=== PATIENT | female | born 1945 | race Two or more races ===

== ENCOUNTER 2018-04-25 08:34 | Inpatient (IN) | payer MEDICARE, OTHER ==
[~2018-04-25] VITALS: Ht 157.5 cm; Wt 63.6 kg
[~2018-04-25 08:34] MED LIST: EZET1TAB35 PO; METF500T16 PO; OLME20TA17 PO; TRAM-48 PO
--- NOTE | 2018-04-25 08:57 | PHYS DOC ---
Past Medical History Past Medical History: Diabetes-Type II, High Cholesterol, Hypertension, Other Additional Past Medical Histor: Neuropathy. Past Surgical History: No Surgical History Alcohol Use: None Drug Use: None Adult General Chief Complaint Chief Complaint: CHEST PAIN HPI HPI Patient is a 72 year old female with a history of diabetes type 2 uncontrolled , hypertension, high cholesterol, who presents today with with complaints of a 4 /10 chest pain described as pressure mid substernal that began yesterday. Patient states this pain has been going on and off since then. Patient states this morning she was given aspirin via EMS which relieved some of the pain. Patient denies anything exacerbating the pain. She is currently tearful, she states it's because she is in the hospital. Denies any fever coughing or congestion. She states she is not able to take all her diabetes medications because she cannot afford them. Review of Systems Review of Systems Constitutional: Denies fever or chills [] Eyes: Denies change in visual acuity, redness, or eye pain [] HENT: Denies nasal congestion or sore throat [] Respiratory: Denies cough or shortness of breath [] Cardiovascular: Reports chest pain GI: Denies abdominal pain, nausea, vomiting, bloody stools or diarrhea [] : Denies dysuria or hematuria [] Musculoskeletal: Denies back pain or joint pain [] Integument: Denies rash or skin lesions [] Neurologic: Denies headache, focal weakness or sensory changes [] Psych: Appears tearful All other systems were reviewed and found to be within normal limits, except as documented in this note. Current Medications Current Medications Current Medications Medications (Trade) Dose Ordered Sig/[facility] Start Time Stop Time Status Last Admin Dose Admin Morphine Sulfate (Morphine Sulfate) 2 mg 1X ONCE 04/25/18 09:00 04/25/18 09:01 DC 04/25/18 09:24 2 MG Allergies Allergies Allergies Coded Allergies Type Severity Reaction Last Updated Verified No Known Drug Allergies 04/25/18 No Physical Exam Physical Exam Constitutional: Well developed, well nourished, no acute distress, non-toxic appearance. [] HENT: Normocephalic, atraumatic, bilateral external ears normal, oropharynx moist, no oral exudates, nose normal. [] Eyes: PERRLA, EOMI, conjunctiva normal, no discharge. [] Neck: Normal range of motion, no tenderness, supple, no stridor. [] Cardiovascular:Heart rate regular rhythm, no murmur [] Lungs & Thorax: Bilateral breath sounds clear to auscultation [] Abdomen: Bowel sounds normal, soft, no tenderness, no masses, no pulsatile masses. [] Skin: Warm, dry, no erythema, no rash. [] Back: No tenderness, no CVA tenderness. [] Extremities: No tenderness, no cyanosis, no clubbing, ROM intact, no edema. [] Neurologic: Alert and oriented X 3, normal motor function, normal sensory function, no focal deficits noted. [] Psychologic: Tearful during exam Current Patient Data Vital Signs Vital Signs Date Time Temp Pulse Resp B/P (MAP) Pulse Ox O2 Delivery O2 Flow Rate FiO2 04/25/18 09:30 96 17 167/81 (109) 96 Room Air 04/25/18 08:35 99.8 99.8 Lab Values Laboratory Tests Test 04/25/18 08:58 04/25/18 09:20 04/25/18 09:41 Urine Collection Type Unknown Urine Color Yellow Urine Clarity Clear Urine pH 6.5 Urine Specific [place] 1.020 Urine Protein 100 mg/dL (NEG-TRACE) Urine Glucose (UA) >=1000 mg/dL (NEG) Urine Ketones (Stick) Negative mg/dL (NEG) Urine Blood Small (NEG) Urine Nitrite Negative (NEG) Urine Bilirubin Negative (NEG) Urine Urobilinogen Dipstick 0.2 mg/dL (0.2 mg/dL) Urine Leukocyte Esterase Negative (NEG) Urine RBC 0 /HPF (0-2) Urine WBC 1-4 /HPF (0-4) Urine Squamous Epithelial Cells Mod /LPF Urine Bacteria Moderate /HPF (0-FEW) Urine Opiates Screen Neg (NEG) Urine Methadone Screen Neg (NEG) Urine Barbiturates Neg (NEG) Urine Phencyclidine Screen Neg (NEG) Urine Amphetamine/Methamphetamine Neg (NEG) Urine Benzodiazepines Screen Neg (NEG) Urine Cocaine Screen Neg (NEG) Urine Cannabinoids Screen Neg (NEG) Urine Ethyl Alcohol Neg (NEG) White Blood Count 13.6 x10^3/uL (4.0-11.0) H Red Blood Count 4.69 x10^6/uL (3.50-5.40) Hemoglobin 13.4 g/dL (12.0-15.5) Hematocrit 39.4 % (36.0-47.0) Mean Corpuscular Volume 84 fL (79-100) Mean Corpuscular Hemoglobin 29 pg (25-35) Mean Corpuscular Hemoglobin Concent 34 g/dL (31-37) Red Cell Distribution Width 14.3 % (11.5-14.5) Platelet Count 272 x10^3/uL (140-400) Neutrophils (%) (Auto) 76 % (31-73) H Lymphocytes (%) (Auto) 18 % (24-48) L Monocytes (%) (Auto) 5 % (0-9) Eosinophils (%) (Auto) 1 % (0-3) Basophils (%) (Auto) 0 % (0-3) Neutrophils # (Auto) 10.3 x10^3uL (1.8-7.7) H Lymphocytes # (Auto) 2.4 x10^3/uL (1.0-4.8) Monocytes # (Auto) 0.7 x10^3/uL (0.0-1.1) Eosinophils # (Auto) 0.1 x10^3/uL (0.0-0.7) Basophils # (Auto) 0.1 x10^3/uL (0.0-0.2) Sodium Level 137 mmol/L (136-145) Potassium Level 4.1 mmol/L (3.5-5.1) Chloride Level 97 mmol/L (98-107) L Carbon Dioxide Level 27 mmol/L (21-32) Anion Gap 13 (6-14) Blood Urea Nitrogen 25 mg/dL (7-20) H Creatinine 2.1 mg/dL (0.6-1.0) H Estimated GFR (Cockcroft-Gault) 23.3 BUN/Creatinine Ratio 12 (6-20) Glucose Level 575 mg/dL (70-99) *H Hemoglobin A1c 13.6 % (4.8-5.6) H Calcium Level 9.0 mg/dL (8.5-10.1) Magnesium Level 2.1 mg/dL (1.8-2.4) Total Bilirubin 0.2 mg/dL (0.2-1.0) Aspartate Amino Transferase (AST) 16 U/L (15-37) Alanine Aminotransferase (ALT) 20 U/L (14-59) Alkaline Phosphatase 120 U/L (46-116) H Troponin I Quantitative 0.057 ng/mL (0.000-0.055) JU-Lam-U-Type Natriuretic Peptide 298 pg/mL (0-124) H Total Protein 7.1 g/dL (6.4-8.2) Albumin 3.3 g/dL (3.4-5.0) L Albumin/Globulin Ratio 0.9 (1.0-1.7) L Thyroid Stimulating Hormone (TSH) 0.581 uIU/mL (0.358-3.74) POC Troponin I 0.01 ng/ml (<0.08) Laboratory Tests 04/25/18 09:20 Laboratory Tests 04/25/18 09:20 EKG EKG 08:[address] Sharif sinus rhythm inverted T waves in V3 no STEMI Radiology/Procedures Radiology/Procedures []PROCEDURE: PORTABLE CHEST 1V PORTABLE CHEST 1V History: CHEST PAIN THIS AM Comparison: None. Findings: Single view of the chest is submitted. There is no infiltrate, pneumothorax, or effusion. The pericardial cardiac silhouette is within normal limits in size. There is mild apparent elevation of the right hemidiaphragm. There is atherosclerotic calcification near aortic arch. Impression: 1. There is no radiographic evidence of acute cardiopulmonary disease. Electronically signed by: Cassidy Perez MD (04/25/2018 9:30 AM) [id number] DICTATED and SIGNED BY: CASSIDY PEREZ MD DATE: 04/25/18929 Course & Med Decision Making Course & Med Decision Making Pertinent Labs and Imaging studies reviewed. (See chart for details) This is a 72 pain has improved with aspirin.-year-old female patient presenting to the ED today with complaints of chest pain on and off since yesterday. Patient is very tearful during exam denies any chance she is being abused, denies any suicidal or homicidal ideations. EKG noted for inverted T waves no previous EKG for comparison, troponin 0.057, blood glucose 575 with normal Anion gap. Chest x-ray with no acute findings. Creatinine 2.1 BUN 25, patient states she has history of renal insufficiency. Given Insulin 8 units in the Ed. Blood pressure 154/76, HR 89. Temp 99.8 Resp 14. Heart score 6 09:22 Consulted with Samina SALAMANCA for cardiology who will follow-up with patient. 09:[address] Krueger who will also follow-up with patient. Staff Physician Addendum: I was working in the ER during the course of this patient's visit. I was available for consultation as needed, but I was not directly involved in the care of this patient. Dragon Disclaimer Dragon Disclaimer This electronic medical record was generated, in whole or in part, using a voice recognition dictation system. Departure Departure Impression: Primary Impression: T wave inversion in EKG Additional Impressions: Chest pain Chronic renal failure NSTEMI (non-ST elevated myocardial infarction) Hyperglycemia Disposition: ADMITTED INPATIENT Condition: STABLE Referrals: MELA EDOUARD (PCP) Problem Qualifiers Additional Impressions: Chest pain Chest pain type: unspecified Qualified Codes: R07.9 - Chest pain, unspecified Chronic renal failure Chronic kidney disease stage: unspecified stage Qualified Codes: N18.9 - Chronic kidney disease, unspecified SARKIS COOK APRN Apr 25, 2018 08:57 RIKY PINO MD Apr 26, 2018 07:03
[2018-04-25] MEDS ORDERED: MORPHINE SULFATE 2 MG/ML VIAL. IV ONE (09:00)
--- NOTE | 2018-04-25 09:01 | EKG ---
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
[2018-04-25 09:15] LABS: BILIRUBIN,URINE NEGATIVE (NEG); CLARITY,URINE CLEAR; COLOR,URINE YELLOW; NITRITE,URINE NEGATIVE (NEG); PH,URINE 6.5; PROTEIN,URINE 100 mg/dL (NEG-TRACE); UROBILINOGEN,URINE 0.2 mg/dL (0.2 mg/dL)
[2018-04-25 09:23] LABS: BARBITURATES NEG (NEG); BENZODIAZEPINES NEG (NEG); CANNABINOIDS NEG (NEG); COCAINE NEG (NEG); METHADONE NEG (NEG); OPIATES NEG (NEG); PHENCYCLIDINE NEG (NEG)
[2018-04-25 09:26] LABS: SQUAMOUS EPITHELIAL CELL,UR MOD /LPF
[2018-04-25 09:27] LABS: BACTERIA,URINE MODERATE /HPF (0-FEW); RBC,URINE 0 /HPF (0-2)
[2018-04-25 09:29] LABS: AMPHETAMINE/METHAMPHETAMINE NEG (NEG)
--- NOTE | 2018-04-25 09:34 | RAD ---
PORTABLE CHEST 1V History: CHEST PAIN THIS AM Comparison: None. Findings: Single view of the chest is submitted. There is no infiltrate, pneumothorax, or effusion. The pericardial cardiac silhouette is within normal limits in size. There is mild apparent elevation of the right hemidiaphragm. There is atherosclerotic calcification near aortic arch. Impression: 1. There is no radiographic evidence of acute cardiopulmonary disease. Electronically signed by: Pj Gary MD (04/25/2018 9:30 AM) [id number]
[2018-04-25 09:41] LABS: BASO # 0.1 x10^3/uL (0.0-0.2); BASO % 0 % (0-3); EOS # 0.1 x10^3/uL (0.0-0.7); EOS % 1 % (0-3); HEMATOCRIT 39.4 % (36.0-47.0); HEMOGLOBIN 13.4 g/dL (12.0-15.5); LYMPH # 2.4 x10^3/uL (1.0-4.8); LYMPH % 18 % (24-48); MEAN CORPUSCULAR HEMOGLOBIN 29 pg (25-35); MEAN CORPUSCULAR HGB CONC 34 g/dL (31-37); MEAN CORPUSCULAR VOLUME 84 fL (79-100); MONO # 0.7 x10^3/uL (0.0-1.1); MONO % 5 % (0-9); NEUT # 10.3 x10^3uL (1.8-7.7); NEUT % 76 % (31-73); PLATELET COUNT 272 x10^3/uL (140-400); RED BLOOD COUNT 4.69 x10^6/uL (3.50-5.40); RED CELL DISTRIBUTION WIDTH 14.3 % (11.5-14.5); WHITE BLOOD COUNT 13.6 x10^3/uL (4.0-11.0)
[2018-04-25 09:48] LABS: ALBUMIN 3.3 g/dL (3.4-5.0); ALBUMIN/GLOBULIN RATIO 0.9 (1.0-1.7); CREATININE 2.1 mg/dL (0.6-1.0); GFR 23.3; MAGNESIUM 2.1 mg/dL (1.8-2.4); POTASSIUM 4.1 mmol/L (3.5-5.1); TOTAL BILIRUBIN 0.2 mg/dL (0.2-1.0); TOTAL PROTEIN 7.1 g/dL (6.4-8.2)
--- NOTE | 2018-04-25 10:10 | PDOC1 ---
History and Physical Date of Admission Date of Admission DATE: 04/25/18 TIME: 10:10 Identification/Chief Complaint Chief Complaint SEEN IN ER 72 YR OLD female with a history of diabetes type 2 uncontrolled, hypertension, high cholesterol, who presented today with with complaints of a 4/10 chest pain described as pressure ,substernal that began yesterday. saw Dr. Gaming cardiology 5 yrs ago and had a stress test , was told that this was ok. Past Medical History Past Medical History Past Medical History: Diabetes-Type II, High Cholesterol, Hypertension, Other Additional Past Medical Histor: Neuropathy. Past Surgical History: No Surgical History Alcohol Use: None Drug Use: None never smoker family hx diabetes Cardiovascular: Hyperlipidemia Endocrine: Diabetes Past Surgical History Past Surgical History: No pertinent history Family History Family History: Diabetes Social History Smoke: No ALCOHOL: rare Drugs: None Current Medications Current Medications Current Medications Morphine Sulfate (Morphine Sulfate) 2 mg 1X ONCE IV Last administered on at 09:24; Start 04/25/18 at 09:00; Stop 04/25/18 at 09:01; Status DC Active Scripts Active Reported Ultram (Tramadol Hcl) 50 Mg Tablet 50 Mg PO Q6H PRN Metformin Hcl 500 Mg Tablet 500 Mg PO BIDWMEALS Vytorin 10-40 Mg Tablet (Ezetimibe/Simvastatin) 1 Each Tablet 1 Each PO HS Benicar (Olmesartan Medoxomil) 20 Mg Tablet 20 Mg PO Allergies Allergies: Coded Allergies: No Known Drug Allergies (Unverified , 04/25/18) ROS Review of System Review of Systems Review of Systems Constitutional: Denies fever or chills [] Eyes: Denies change in visual acuity, redness, or eye pain [] HENT: Denies nasal congestion or sore throat [] Respiratory: Denies cough or shortness of breath [] Cardiovascular: Reports chest pain, no radiation to arm or jaw GI: Denies abdominal pain, nausea, vomiting, bloody stools or diarrhea [] : Denies dysuria or hematuria [] Musculoskeletal: Denies back pain or joint pain [] Integument: Denies rash or skin lesions [] Neurologic: Denies headache, focal weakness or sensory changes [] Psych: Appears tearful All other systems were reviewed and found to be within normal limits, except as documented in this note. PSYCHOLOGICAL ROS: YES: Anxiety Musculoskeletal: Yes Gait Disturbance, Yes Joint Stiffness Physical Exam Physical Exam Physical Exam Physical Exam Constitutional: Well developed, well nourished, mild acute distress, non-toxic appearance. [] HENT: Normocephalic, atraumatic, bilateral external ears normal, oropharynx moist, no oral exudates, nose normal. [] Eyes: PERRLA, EOMI, conjunctiva normal, no discharge. [] Neck: Normal range of motion, no tenderness, supple, no stridor. [] Cardiovascular:Heart rate regular rhythm, no murmur [] Lungs & Thorax: Bilateral breath sounds clear to auscultation [] Abdomen: Bowel sounds normal, soft, no tenderness, no masses, no pulsatile masses. [] Skin: Warm, dry, no erythema, no rash. [] Back: No tenderness, no CVA tenderness. [] Extremities: No tenderness, no cyanosis, no clubbing, ROM intact, no edema. [] Neurologic: Alert and oriented X 3, normal motor function, normal sensory function, no focal deficits noted. [] General: Oriented X3, Cooperative, mild distress Breasts: Not examined Abdomen: Normal bowel sounds, Soft Rectal Exam: not examined PELVIC: Examination not indicated Neuro: Cranial nerves 3-12 NL Psych/Mental Status: Mental status NL, Mood NL Vitals Vitals Vital Signs Date Time Temp Pulse Resp B/P (MAP) Pulse Ox O2 Delivery O2 Flow Rate FiO2 04/25/18 09:24 14 97 Room Air 04/25/18 08:35 99.8 89 154/76 (102) 99.8 Labs Labs Laboratory Tests Test 04/25/18 08:58 04/25/18 09:20 04/25/18 09:41 Urine Collection Type Unknown Urine Color Yellow Urine Clarity Clear Urine pH 6.5 Urine Specific [place] 1.020 Urine Protein 100 mg/dL (NEG-TRACE) Urine Glucose (UA) >=1000 mg/dL (NEG) Urine Ketones (Stick) Negative mg/dL (NEG) Urine Blood Small (NEG) Urine Nitrite Negative (NEG) Urine Bilirubin Negative (NEG) Urine Urobilinogen Dipstick 0.2 mg/dL (0.2 mg/dL) Urine Leukocyte Esterase Negative (NEG) Urine RBC 0 /HPF (0-2) Urine WBC 1-4 /HPF (0-4) Urine Squamous Epithelial Cells Mod /LPF Urine Bacteria Moderate /HPF (0-FEW) Urine Opiates Screen Neg (NEG) Urine Methadone Screen Neg (NEG) Urine Barbiturates Neg (NEG) Urine Phencyclidine Screen Neg (NEG) Urine Amphetamine/Methamphetamine Neg (NEG) Urine Benzodiazepines Screen Neg (NEG) Urine Cocaine Screen Neg (NEG) Urine Cannabinoids Screen Neg (NEG) Urine Ethyl Alcohol Neg (NEG) White Blood Count 13.6 x10^3/uL (4.0-11.0) Red Blood Count 4.69 x10^6/uL (3.50-5.40) Hemoglobin 13.4 g/dL (12.0-15.5) Hematocrit 39.4 % (36.0-47.0) Mean Corpuscular Volume 84 fL (79-100) Mean Corpuscular Hemoglobin 29 pg (25-35) Mean Corpuscular Hemoglobin Concent 34 g/dL (31-37) Red Cell Distribution Width 14.3 % (11.5-14.5) Platelet Count 272 x10^3/uL (140-400) Neutrophils (%) (Auto) 76 % (31-73) Lymphocytes (%) (Auto) 18 % (24-48) Monocytes (%) (Auto) 5 % (0-9) Eosinophils (%) (Auto) 1 % (0-3) Basophils (%) (Auto) 0 % (0-3) Neutrophils # (Auto) 10.3 x10^3uL (1.8-7.7) Lymphocytes # (Auto) 2.4 x10^3/uL (1.0-4.8) Monocytes # (Auto) 0.7 x10^3/uL (0.0-1.1) Eosinophils # (Auto) 0.1 x10^3/uL (0.0-0.7) Basophils # (Auto) 0.1 x10^3/uL (0.0-0.2) Sodium Level 137 mmol/L (136-145) Potassium Level 4.1 mmol/L (3.5-5.1) Chloride Level 97 mmol/L (98-107) Carbon Dioxide Level 27 mmol/L (21-32) Anion Gap 13 (6-14) Blood Urea Nitrogen 25 mg/dL (7-20) Creatinine 2.1 mg/dL (0.6-1.0) Estimated GFR (Cockcroft-Gault) 23.3 BUN/Creatinine Ratio 12 (6-20) Glucose Level 575 mg/dL (70-99) Calcium Level 9.0 mg/dL (8.5-10.1) Magnesium Level 2.1 mg/dL (1.8-2.4) Total Bilirubin 0.2 mg/dL (0.2-1.0) Aspartate Amino Transf (AST/SGOT) 16 U/L (15-37) Alanine Aminotransferase (ALT/SGPT) 20 U/L (14-59) Alkaline Phosphatase 120 U/L (46-116) Troponin I Quantitative 0.057 ng/mL (0.000-0.055) UH-Ztd-C-Type Natriuretic Peptide 298 pg/mL (0-124) Total Protein 7.1 g/dL (6.4-8.2) Albumin 3.3 g/dL (3.4-5.0) Albumin/Globulin Ratio 0.9 (1.0-1.7) Thyroid Stimulating Hormone (TSH) 0.581 uIU/mL (0.358-3.74) Bedside Troponin I 0.01 ng/ml (<0.08) Laboratory Tests Test 04/25/18 08:58 04/25/18 09:20 04/25/18 09:41 Urine Collection Type Unknown Urine Color Yellow Urine Clarity Clear Urine pH 6.5 Urine Specific [place] 1.020 Urine Protein 100 mg/dL (NEG-TRACE) Urine Glucose (UA) >=1000 mg/dL (NEG) Urine Ketones (Stick) Negative mg/dL (NEG) Urine Blood Small (NEG) Urine Nitrite Negative (NEG) Urine Bilirubin Negative (NEG) Urine Urobilinogen Dipstick 0.2 mg/dL (0.2 mg/dL) Urine Leukocyte Esterase Negative (NEG) Urine RBC 0 /HPF (0-2) Urine WBC 1-4 /HPF (0-4) Urine Squamous Epithelial Cells Mod /LPF Urine Bacteria Moderate /HPF (0-FEW) Urine Opiates Screen Neg (NEG) Urine Methadone Screen Neg (NEG) Urine Barbiturates Neg (NEG) Urine Phencyclidine Screen Neg (NEG) Urine Amphetamine/Methamphetamine Neg (NEG) Urine Benzodiazepines Screen Neg (NEG) Urine Cocaine Screen Neg (NEG) Urine Cannabinoids Screen Neg (NEG) Urine Ethyl Alcohol Neg (NEG) White Blood Count 13.6 x10^3/uL (4.0-11.0) Red Blood Count 4.69 x10^6/uL (3.50-5.40) Hemoglobin 13.4 g/dL (12.0-15.5) Hematocrit 39.4 % (36.0-47.0) Mean Corpuscular Volume 84 fL (79-100) Mean Corpuscular Hemoglobin 29 pg (25-35) Mean Corpuscular Hemoglobin Concent 34 g/dL (31-37) Red Cell Distribution Width 14.3 % (11.5-14.5) Platelet Count 272 x10^3/uL (140-400) Neutrophils (%) (Auto) 76 % (31-73) Lymphocytes (%) (Auto) 18 % (24-48) Monocytes (%) (Auto) 5 % (0-9) Eosinophils (%) (Auto) 1 % (0-3) Basophils (%) (Auto) 0 % (0-3) Neutrophils # (Auto) 10.3 x10^3uL (1.8-7.7) Lymphocytes # (Auto) 2.4 x10^3/uL (1.0-4.8) Monocytes # (Auto) 0.7 x10^3/uL (0.0-1.1) Eosinophils # (Auto) 0.1 x10^3/uL (0.0-0.7) Basophils # (Auto) 0.1 x10^3/uL (0.0-0.2) Sodium Level 137 mmol/L (136-145) Potassium Level 4.1 mmol/L (3.5-5.1) Chloride Level 97 mmol/L (98-107) Carbon Dioxide Level 27 mmol/L (21-32) Anion Gap 13 (6-14) Blood Urea Nitrogen 25 mg/dL (7-20) Creatinine 2.1 mg/dL (0.6-1.0) Estimated GFR (Cockcroft-Gault) 23.3 BUN/Creatinine Ratio 12 (6-20) Glucose Level 575 mg/dL (70-99) Calcium Level 9.0 mg/dL (8.5-10.1) Magnesium Level 2.1 mg/dL (1.8-2.4) Total Bilirubin 0.2 mg/dL (0.2-1.0) Aspartate Amino Transf (AST/SGOT) 16 U/L (15-37) Alanine Aminotransferase (ALT/SGPT) 20 U/L (14-59) Alkaline Phosphatase 120 U/L (46-116) Troponin I Quantitative 0.057 ng/mL (0.000-0.055) ZE-Fvy-D-Type Natriuretic Peptide 298 pg/mL (0-124) Total Protein 7.1 g/dL (6.4-8.2) Albumin 3.3 g/dL (3.4-5.0) Albumin/Globulin Ratio 0.9 (1.0-1.7) Thyroid Stimulating Hormone (TSH) 0.581 uIU/mL (0.358-3.74) Bedside Troponin I 0.01 ng/ml (<0.08) VTE Prophylaxis Ordered VTE Prophylaxis Devices: Yes VTE Pharmacological Prophylaxi: Yes Assessment/Plan Assessment/Plan ASSESSMENT/PLAN ASSESSMENT/PLAN 1. Chest pain: unstable angina 2. Uncontrolled DM2:pt not taking insulin due to high cost 3. SEJAL 4. Hyperlipidemia 5. HTN: labile plan 1. trend troponin TTE 2. Lipids, A1C 3. consult nephrology 4. restart insulin 5. ASA, x1 lovenox 6. [facility] , YOLANDA ERWIN MD Apr 25, 2018 10:10
[2018-04-25] MEDS ORDERED: NITROGLYCERIN SUBLINGUAL 0.4 MG BOTTLE OF 25. SL PRN (10:30)
[2018-04-25] MEDS ORDERED: MORPHINE SULFATE 4 MG/ML VIAL. IV PRN (10:30)
[2018-04-25] MEDS ORDERED: INSULIN REGULAR 100 UNIT/ML 3ML VIAL. IV ONE (10:30)
[2018-04-25] MEDS ORDERED: ACETAMINOPHEN 325 MG TABLET. PO PRN (10:30)
[2018-04-25] MEDS ORDERED: ONDANSETRON PF 4 MG/2 ML VIAL. IV PRN (10:30)
[2018-04-25] MEDS ORDERED: DEXTROSE 50% 25 GM / 50ML DISP.SYRIN. IV PRN ×2 (10:30→12:15)
[2018-04-25 11:50] VITALS: BP 139/77
[2018-04-25] MEDS ORDERED: CARV6.252 PO (11:51)
[2018-04-25] MEDS ORDERED: GLIM1TAB2 PO (11:51)
[2018-04-25] MEDS ORDERED: PARI1CAP PO (11:51)
[2018-04-25] MEDS ORDERED: TRAM50TA PO (11:51)
[2018-04-25] MEDS ORDERED: CRESTOR20 MG PO (11:51)
[2018-04-25] MEDS ORDERED: SITA50TA PO (11:51)
[2018-04-25] MEDS ORDERED: CETI10TA16 PO (11:51)
[2018-04-25] MEDS ORDERED: INSU100I13 SQ (11:51)
[2018-04-25] MEDS ORDERED: AMLO5TAB7 PO (11:51)
[2018-04-25] MEDS ORDERED: INSULIN LISPRO 300 UNITS/3 ML INSULN.PEN. SQ ONE ×2 (12:15→22:30)
[2018-04-25] MEDS ORDERED: IV NORMAL SALINE 1000ML BAG 1,000 ML IV ONE (12:45)
[2018-04-25] MEDS ORDERED: LABETALOL 20 MG/4 ML DISP.SYRIN. IVP PRN (12:45)
--- NOTE | 2018-04-25 12:53 | PDOC2 ---
DOMINGA MISHRA LICENSED SOCIAL WORKER 04/25/18 1253: CARDIAC CONSULT DATE OF CONSULT Date of Consult DATE: 04/25/18 TIME: 11:57 REASON FOR CONSULT Reason for Consult: Chest pain, elevated troponin, inverted t waves REFERRING PHYSICIAN Referring Physician: Anil SOURCE Source: Chart review, Patient HISTORY OF PRESENT ILLNESS HISTORY OF PRESENT ILLNESS This is a 72 yo female admitted for complains of chest pain. Reports that started having midchest pressure yesterday morning that radiated just below between her shoulder blades. Reports of SOA associated with it but no jaw or arm discomfort. No nausea, indigestion or heartburn and this pain are not reproducible with palpation. She tried vicks and vough drops but this did not help and lasted all morning yesterday. This recurred again this morning and is much worse than yesterday. Again with SOA but no palpitations or GI symptoms. 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 She did see Dr. Gaming cardiology 5 yrs ago and had a stress test for routine testing for her long-term preparation and was told that this was ok. Presently she denies any pain or SOA. To add she has limited distance with ambulation due to CHRISTINE and bad knee arthritis but indicated no significant changes as far as distance in the last several months with her activity tolerance. No recent falls or injury and no routine ibuprofen/aleve. No past hx of CAD/VTE. PAST MEDICAL HISTORY Cardiovascular: HTN, Hyperlipidemia Pulmonary: No pertinent hx CENTRAL NERVOUS SYSTEM: Other (No pertinent history) GI: No pertinent hx Musculoskeletal: Osteoarthritis ENT: Allergic Rhinitis Renal/: Chronic renal insuff (CKD3) Endocrine: Diabetes (2), Hyperparathyroidism (secondary) PAST SURGICAL HISTORY Past Surgical History: Cataract Removal FAMILY HISTORY Family History: Diabetes (father) SOCIAL HISTORY Smoke: No ALCOHOL: none Drugs: None Lives: with Family (son) CURRENT MEDICATIONS CURRENT MEDICATIONS Current Medications Medications (Trade) Dose Ordered Sig/Gerald Route PRN Reason Start Time Stop Time Status Last Admin Dose Admin Morphine Sulfate (Morphine Sulfate) 2 mg 1X ONCE IV 04/25/18 09:00 04/25/18 09:01 DC 04/25/18 09:24 Insulin Human Regular (HumuLIN R VIAL) 8 unit 1X ONCE IV 04/25/18 10:30 04/25/18 10:31 DC 04/25/18 10:51 Nitroglycerin (Nitrostat) 0.4 mg PRN Q5MIN PRN SL CHEST PAIN 04/25/18 10:30 04/26/18 10:29 04/25/18 10:55 ALLERGIES ALLERGIES: Coded Allergies: No Known Drug Allergies (Unverified , 04/25/18) ROS Review of System 14 pioi PHYSICAL EXAM General: Alert, Oriented X3, Cooperative, No acute distress HEENT: Atraumatic, Mucous membr. moist/pink Lungs: Other (basilar crackles) Heart: Regular rate (SR), Normal S1, Normal S2, Other (2/6 systolic murmur to LLS border) Abdomen: Soft, No tenderness Extremities: No cyanosis, Other (trace LE edema) Skin: No breakdown, No significant lesion Neuro: Normal speech, Sensation intact Psych/Mental Status: Mental status NL, Mood NL MUSCULOSKELETAL: Osteoarthritic changes both hands VITALS VITALS Vital Signs Date Time Temp Pulse Resp B/P (MAP) Pulse Ox O2 Delivery O2 Flow Rate FiO2 04/25/18 10:55 101 151/83 04/25/18 09:24 14 97 Room Air 04/25/18 08:35 99.8 99.8 LABS Lab: Laboratory Tests Test 04/25/18 08:58 04/25/18 09:20 04/25/18 09:41 Urine Collection Type Unknown Urine Color Yellow Urine Clarity Clear Urine pH 6.5 Urine Specific [place] 1.020 Urine Protein 100 mg/dL (NEG-TRACE) Urine Glucose (UA) >=1000 mg/dL (NEG) Urine Ketones (Stick) Negative mg/dL (NEG) Urine Blood Small (NEG) Urine Nitrite Negative (NEG) Urine Bilirubin Negative (NEG) Urine Urobilinogen Dipstick 0.2 mg/dL (0.2 mg/dL) Urine Leukocyte Esterase Negative (NEG) Urine RBC 0 /HPF (0-2) Urine WBC 1-4 /HPF (0-4) Urine Squamous Epithelial Cells Mod /LPF Urine Bacteria Moderate /HPF (0-FEW) Urine Opiates Screen Neg (NEG) Urine Methadone Screen Neg (NEG) Urine Barbiturates Neg (NEG) Urine Phencyclidine Screen Neg (NEG) Urine Amphetamine/Methamphetamine Neg (NEG) Urine Benzodiazepines Screen Neg (NEG) Urine Cocaine Screen Neg (NEG) Urine Cannabinoids Screen Neg (NEG) Urine Ethyl Alcohol Neg (NEG) White Blood Count 13.6 x10^3/uL (4.0-11.0) Red Blood Count 4.69 x10^6/uL (3.50-5.40) Hemoglobin 13.4 g/dL (12.0-15.5) Hematocrit 39.4 % (36.0-47.0) Mean Corpuscular Volume 84 fL (79-100) Mean Corpuscular Hemoglobin 29 pg (25-35) Mean Corpuscular Hemoglobin Concent 34 g/dL (31-37) Red Cell Distribution Width 14.3 % (11.5-14.5) Platelet Count 272 x10^3/uL (140-400) Neutrophils (%) (Auto) 76 % (31-73) Lymphocytes (%) (Auto) 18 % (24-48) Monocytes (%) (Auto) 5 % (0-9) Eosinophils (%) (Auto) 1 % (0-3) Basophils (%) (Auto) 0 % (0-3) Neutrophils # (Auto) 10.3 x10^3uL (1.8-7.7) Lymphocytes # (Auto) 2.4 x10^3/uL (1.0-4.8) Monocytes # (Auto) 0.7 x10^3/uL (0.0-1.1) Eosinophils # (Auto) 0.1 x10^3/uL (0.0-0.7) Basophils # (Auto) 0.1 x10^3/uL (0.0-0.2) Sodium Level 137 mmol/L (136-145) Potassium Level 4.1 mmol/L (3.5-5.1) Chloride Level 97 mmol/L (98-107) Carbon Dioxide Level 27 mmol/L (21-32) Anion Gap 13 (6-14) Blood Urea Nitrogen 25 mg/dL (7-20) Creatinine 2.1 mg/dL (0.6-1.0) Estimated GFR (Cockcroft-Gault) 23.3 BUN/Creatinine Ratio 12 (6-20) Glucose Level 575 mg/dL (70-99) Calcium Level 9.0 mg/dL (8.5-10.1) Magnesium Level 2.1 mg/dL (1.8-2.4) Total Bilirubin 0.2 mg/dL (0.2-1.0) Aspartate Amino Transf (AST/SGOT) 16 U/L (15-37) Alanine Aminotransferase (ALT/SGPT) 20 U/L (14-59) Alkaline Phosphatase 120 U/L (46-116) Troponin I Quantitative 0.057 ng/mL (0.000-0.055) PN-Dku-L-Type Natriuretic Peptide 298 pg/mL (0-124) Total Protein 7.1 g/dL (6.4-8.2) Albumin 3.3 g/dL (3.4-5.0) Albumin/Globulin Ratio 0.9 (1.0-1.7) Thyroid Stimulating Hormone (TSH) 0.581 uIU/mL (0.358-3.74) Bedside Troponin I 0.01 ng/ml (<0.08) ASSESSMENT/PLAN ASSESSMENT/PLAN 1. Chest pain: UA features 2. Uncontrolled DM2: 500s upon admission. Per PCP 3. SEJAL on CKD: suspected baseline at stage 3-4 2014 Cr noted at 1.6 and currently 2.1. she is on Zemplar 4. HLP 5. HTN: labile episodes Recommendations 1. trend troponin and will repeat EKG. TTE 2. Lipids, A1C 3. Renal optimization, consult nephrology 4. May need to switch to tradjenta, defer to PCP. 5. ASA, x1 lovenox per renal dosing, Statin and home norvasc/coreg to continue. No ACEi/ARB. 6. High pretest probability for CAD, [facility] recommended, control and renal optimization. Start IVF JEREMY GREENE MD 04/25/18 2320: CARDIAC CONSULT ASSESSMENT/PLAN ASSESSMENT/PLAN Pt. seen and examined. Agree with above SHIPPING SUPPORT CLERK note. 72 yo F with fairly typical symptoms and NSTEMI with trop of 2.4 [address] cr to stabilize and continue hydration and treatment of hyperglycemia. High risk for KAYDEN as well. Given normal LV function, could manage conservatively or plan for cath after medical optimization. DOMINGA MISHRA APRN Apr 25, 2018 12:53 JEREMY GREENE MD Apr 25, 2018 23:20
--- NOTE | 2018-04-25 13:15 | PDOC2 ---
CONSULT Date of Consult Date of Consult DATE: 04/25/18 TIME: 13:04 Reason for Consult Reason for Consult: Creat 2.1 Identification/Chief Complaint Chief Complaint Chest pain and Shortness of breath, None currently Source Source: Chart review, Patient History of Present Illness Reason for Visit: Pt is 72 yo female admitted for complains of chest pain. C/O having midchest pressure yesterday morning that radiated just below between her shoulder blades. Reports that it was associated with shortness of breath but no jaw or arm discomfort. Denies nausea, vomiting or heartburn She tried vicks and cough drops but this did not help and lasted all morning yesterday. This recurred again this morning and is much worse than yesterday with shortness of breath . Presently she denies any complaints . Denies any urinary symptoms. Denies use of NSAID's or any OTC Products. She states she used to see Dr. Greene now Dr. Pompa- seen her only x1 recently. She is not aware of any Kidney issues . Past Medical History Cardiovascular: HTN, Hyperlipidemia Pulmonary: No pertinent hx CENTRAL NERVOUS SYSTEM: Other (No pertinent history) GI: No pertinent hx Musculoskeletal: Osteoarthritis ENT: Allergic Rhinitis Renal/: Chronic renal insuff (CKD3) Endocrine: Diabetes (2), Hyperparathyroidism (secondary) Past Surgical History Past Surgical History: Cataract Removal Family History Family History: Diabetes (father) Social History No ALCOHOL: none Drugs: None Lives: with Family (son) Current Problem List Problem List Problems Medical Problems: (1) Chronic renal failure Status: Acute (2) Hyperglycemia Status: Acute (3) NSTEMI (non-ST elevated myocardial infarction) Status: Acute Current Medications Current Medications Current Medications Morphine Sulfate (Morphine Sulfate) 2 mg 1X ONCE IV Last administered on at 09:24; Start 04/25/18 at 09:00; Stop 04/25/18 at 09:01; Status DC Insulin Human Regular (HumuLIN R VIAL) 8 unit 1X ONCE IV Last administered on 04/25/18at 10:51; Start 04/25/18 at 10:30; Stop 04/25/18 at 10:31; Status DC Ondansetron HCl (Zofran) 4 mg PRN Q8HRS PRN IV NAUSEA/VOMITING; Start 04/25/18 at 10:30; Stop 04/26/18 at 10:29 Morphine Sulfate (Morphine Sulfate) 4 mg PRN Q2HR PRN IV PAIN; Start 04/25/18 at 10:30; Stop 04/26/18 at 10:29 Acetaminophen (Tylenol) 650 mg PRN Q4HRS PRN PO FEVER; Start 04/25/18 at 10:30 ; Stop 04/26/18 at 10:29 Nitroglycerin (Nitrostat) 0.4 mg PRN Q5MIN PRN SL CHEST PAIN Last administered on 04/25/18at 10:55; Start 04/25/18 at 10:30; Stop 04/26/18 at 10:29 Dextrose (Dextrose 50%-Water Syringe) 12.5 gm PRN Q15MIN PRN IV SEE COMMENTS; Start 04/25/18 at 10:30 Insulin Human Lispro (HumaLOG) 12 units 1X ONCE SQ Last administered on at 12:46; Start 04/25/18 at 12:15; Stop 04/25/18 at 12:17; Status DC Insulin Human Lispro (HumaLOG) 0-9 UNITS TIDWMEALS SQ ; Start 04/25/18 at 17:00 Dextrose (Dextrose 50%-Water Syringe) 12.5 gm PRN Q15MIN PRN IV SEE COMMENTS; Start 04/25/18 at 12:15; Status UNV Sodium Chloride 1,000 ml @ 75 mls/hr 1X ONCE IV ; Start 04/25/18 at 12:45; Stop 04/26/18 at 02:04 Labetalol HCl (Normodyne Iv Push) 20 mg PRN Q2HR PRN IVP HYPERTENSION, SEE COMMENTS; Start 04/25/18 at 12:45 Aspirin (Ecotrin) 81 mg DAILYWBKFT PO ; Start 04/26/18 at 08:00 Amlodipine Besylate (Norvasc) 5 mg DAILY PO ; Start 04/25/18 at 13:00 Carvedilol (Coreg) 6.25 mg BIDWMEALS PO ; Start 04/25/18 at 17:00 Enoxaparin Sodium (Lovenox 60mg Syringe) 60 mg 1X ONCE SQ ; Start 04/25/18 at 13:00; Stop 04/25/18 at 13:01 Active Scripts Active Reported Zemplar (Paricalcitol) 1 Mcg Capsule 1 Mcg PO DAILY Lantus Solostar (Insulin Glargine,Hum.rec.anlog) 100 Unit/1 Ml Insuln.pen 20 Unit SQ QHS Carvedilol 6.25 Mg Tablet 6.25 Mg PO BIDWMEALS Cetirizine Hcl 10 Mg Tablet 10 Mg PO DAILY Amlodipine Besylate 5 Mg Tablet 5 Mg PO DAILY Tramadol Hcl 50 Mg Tablet 50 Mg PO Q4HRS PRN Glimepiride 1 Mg Tablet 1 Mg PO DAILY Januvia (Sitagliptin Phosphate) 50 Mg Tablet 50 Mg PO DAILY Crestor (Rosuvastatin Calcium) 20 Mg Tablet 20 Mg PO HS Allergies Allergies: Coded Allergies: No Known Drug Allergies (Unverified , 04/25/18) ROS Review of System As per hpi Physical Exam Physical Exam General: No acute distress Neck Supple HEENT: , Mucous membr. moist/pink Lungs: CTA bilat, non labored CV- RRR Abdomen: Soft, No tenderness Extremities: No LE edema Skin: No rash Neuro: Grossly normaL gu- No Robison, No SP/CVA tenderness Vital Signs Vital Signs Date Time Temp Pulse Resp B/P (MAP) Pulse Ox O2 Delivery O2 Flow Rate FiO2 04/25/18 11:50 98 20 139/77 (97) 93 Room Air 04/25/18 08:35 99.8 99.8 Assessment & Plan SEJAL - Dehydration sec to Hyperglycemia Creat in 2014 as per [facility] records 1.5 - could be progression of CKD E-Lytes and acid base stable,ua unremarkable Monitor , strict I/O CKD stage 3/4- Creat in 2014 1.5 Pt not aware , has never sen renal as OP No interval labs available Med list shows she is on Zemplar Chest pain- Cardiology Following Uncontrolled DM2: 500s upon admission As Per PCP HTN: BP fair On Antihypertensives Discussed with Pt CT in 2015- Normal Kidneys Labs Labs Laboratory Tests Test 04/25/18 08:58 04/25/18 09:20 04/25/18 09:41 04/25/18 11:17 Urine Collection Type Unknown Urine Color Yellow Urine Clarity Clear Urine pH 6.5 Urine Specific [place] 1.020 Urine Protein 100 mg/dL (NEG-TRACE) Urine Glucose (UA) >=1000 mg/dL (NEG) Urine Ketones (Stick) Negative mg/dL (NEG) Urine Blood Small (NEG) Urine Nitrite Negative (NEG) Urine Bilirubin Negative (NEG) Urine Urobilinogen Dipstick 0.2 mg/dL (0.2 mg/dL) Urine Leukocyte Esterase Negative (NEG) Urine RBC 0 /HPF (0-2) Urine WBC 1-4 /HPF (0-4) Urine Squamous Epithelial Cells Mod /LPF Urine Bacteria Moderate /HPF (0-FEW) Urine Opiates Screen Neg (NEG) Urine Methadone Screen Neg (NEG) Urine Barbiturates Neg (NEG) Urine Phencyclidine Screen Neg (NEG) Urine Amphetamine/Methamphetamine Neg (NEG) Urine Benzodiazepines Screen Neg (NEG) Urine Cocaine Screen Neg (NEG) Urine Cannabinoids Screen Neg (NEG) Urine Ethyl Alcohol Neg (NEG) White Blood Count 13.6 x10^3/uL (4.0-11.0) Red Blood Count 4.69 x10^6/uL (3.50-5.40) Hemoglobin 13.4 g/dL (12.0-15.5) Hematocrit 39.4 % (36.0-47.0) Mean Corpuscular Volume 84 fL (79-100) Mean Corpuscular Hemoglobin 29 pg (25-35) Mean Corpuscular Hemoglobin Concent 34 g/dL (31-37) Red Cell Distribution Width 14.3 % (11.5-14.5) Platelet Count 272 x10^3/uL (140-400) Neutrophils (%) (Auto) 76 % (31-73) Lymphocytes (%) (Auto) 18 % (24-48) Monocytes (%) (Auto) 5 % (0-9) Eosinophils (%) (Auto) 1 % (0-3) Basophils (%) (Auto) 0 % (0-3) Neutrophils # (Auto) 10.3 x10^3uL (1.8-7.7) Lymphocytes # (Auto) 2.4 x10^3/uL (1.0-4.8) Monocytes # (Auto) 0.7 x10^3/uL (0.0-1.1) Eosinophils # (Auto) 0.1 x10^3/uL (0.0-0.7) Basophils # (Auto) 0.1 x10^3/uL (0.0-0.2) Sodium Level 137 mmol/L (136-145) Potassium Level 4.1 mmol/L (3.5-5.1) Chloride Level 97 mmol/L (98-107) Carbon Dioxide Level 27 mmol/L (21-32) Anion Gap 13 (6-14) Blood Urea Nitrogen 25 mg/dL (7-20) Creatinine 2.1 mg/dL (0.6-1.0) Estimated GFR (Cockcroft-Gault) 23.3 BUN/Creatinine Ratio 12 (6-20) Glucose Level 575 mg/dL (70-99) Calcium Level 9.0 mg/dL (8.5-10.1) Magnesium Level 2.1 mg/dL (1.8-2.4) Total Bilirubin 0.2 mg/dL (0.2-1.0) Aspartate Amino Transf (AST/SGOT) 16 U/L (15-37) Alanine Aminotransferase (ALT/SGPT) 20 U/L (14-59) Alkaline Phosphatase 120 U/L (46-116) Troponin I Quantitative 0.057 ng/mL (0.000-0.055) JZ-Azk-C-Type Natriuretic Peptide 298 pg/mL (0-124) Total Protein 7.1 g/dL (6.4-8.2) Albumin 3.3 g/dL (3.4-5.0) Albumin/Globulin Ratio 0.9 (1.0-1.7) Thyroid Stimulating Hormone (TSH) 0.581 uIU/mL (0.358-3.74) Bedside Troponin I 0.01 ng/ml (<0.08) Glucose (Fingerstick) 483 mg/dL (70-99) Laboratory Tests Test 04/25/18 08:58 04/25/18 09:20 04/25/18 09:41 04/25/18 11:17 Urine Collection Type Unknown Urine Color Yellow Urine Clarity Clear Urine pH 6.5 Urine Specific [place] 1.020 Urine Protein 100 mg/dL (NEG-TRACE) Urine Glucose (UA) >=1000 mg/dL (NEG) Urine Ketones (Stick) Negative mg/dL (NEG) Urine Blood Small (NEG) Urine Nitrite Negative (NEG) Urine Bilirubin Negative (NEG) Urine Urobilinogen Dipstick 0.2 mg/dL (0.2 mg/dL) Urine Leukocyte Esterase Negative (NEG) Urine RBC 0 /HPF (0-2) Urine WBC 1-4 /HPF (0-4) Urine Squamous Epithelial Cells Mod /LPF Urine Bacteria Moderate /HPF (0-FEW) Urine Opiates Screen Neg (NEG) Urine Methadone Screen Neg (NEG) Urine Barbiturates Neg (NEG) Urine Phencyclidine Screen Neg (NEG) Urine Amphetamine/Methamphetamine Neg (NEG) Urine Benzodiazepines Screen Neg (NEG) Urine Cocaine Screen Neg (NEG) Urine Cannabinoids Screen Neg (NEG) Urine Ethyl Alcohol Neg (NEG) White Blood Count 13.6 x10^3/uL (4.0-11.0) Red Blood Count 4.69 x10^6/uL (3.50-5.40) Hemoglobin 13.4 g/dL (12.0-15.5) Hematocrit 39.4 % (36.0-47.0) Mean Corpuscular Volume 84 fL (79-100) Mean Corpuscular Hemoglobin 29 pg (25-35) Mean Corpuscular Hemoglobin Concent 34 g/dL (31-37) Red Cell Distribution Width 14.3 % (11.5-14.5) Platelet Count 272 x10^3/uL (140-400) Neutrophils (%) (Auto) 76 % (31-73) Lymphocytes (%) (Auto) 18 % (24-48) Monocytes (%) (Auto) 5 % (0-9) Eosinophils (%) (Auto) 1 % (0-3) Basophils (%) (Auto) 0 % (0-3) Neutrophils # (Auto) 10.3 x10^3uL (1.8-7.7) Lymphocytes # (Auto) 2.4 x10^3/uL (1.0-4.8) Monocytes # (Auto) 0.7 x10^3/uL (0.0-1.1) Eosinophils # (Auto) 0.1 x10^3/uL (0.0-0.7) Basophils # (Auto) 0.1 x10^3/uL (0.0-0.2) Sodium Level 137 mmol/L (136-145) Potassium Level 4.1 mmol/L (3.5-5.1) Chloride Level 97 mmol/L (98-107) Carbon Dioxide Level 27 mmol/L (21-32) Anion Gap 13 (6-14) Blood Urea Nitrogen 25 mg/dL (7-20) Creatinine 2.1 mg/dL (0.6-1.0) Estimated GFR (Cockcroft-Gault) 23.3 BUN/Creatinine Ratio 12 (6-20) Glucose Level 575 mg/dL (70-99) Calcium Level 9.0 mg/dL (8.5-10.1) Magnesium Level 2.1 mg/dL (1.8-2.4) Total Bilirubin 0.2 mg/dL (0.2-1.0) Aspartate Amino Transf (AST/SGOT) 16 U/L (15-37) Alanine Aminotransferase (ALT/SGPT) 20 U/L (14-59) Alkaline Phosphatase 120 U/L (46-116) Troponin I Quantitative 0.057 ng/mL (0.000-0.055) CQ-Qht-N-Type Natriuretic Peptide 298 pg/mL (0-124) Total Protein 7.1 g/dL (6.4-8.2) Albumin 3.3 g/dL (3.4-5.0) Albumin/Globulin Ratio 0.9 (1.0-1.7) Thyroid Stimulating Hormone (TSH) 0.581 uIU/mL (0.358-3.74) Bedside Troponin I 0.01 ng/ml (<0.08) Glucose (Fingerstick) 483 mg/dL (70-99) Review All relevant outside records, renal labs, imaging studies, telemetry/EKG's were reviewed. TIKA SNELL MD Apr 25, 2018 13:15
--- NOTE | 2018-04-25 13:19 | EKG ---
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
[2018-04-25 15:00] VITALS: BP 161/84
--- NOTE | 2018-04-25 15:35 | CARD ---
MR#: [id number] Date of Study: 04/25/2018 Ordering Physician: DOMINGA MISHRA, Referring Physician: YOLANDA ERWIN Tech: Audrey Patel SUZI APPROVED REPORT EXAM: Two-dimensional and M-mode echocardiogram with Doppler and color Doppler. Other Information Quality : Technically LimitedHR: 85bpm Rhythm : NSRTechnically limited study due to body habitus. INDICATION Chest Pain 2D DIMENSIONS RVDd1.9 (2.9-3.5cm)IVSd1.3 (0.7-1.1cm) Aortic Root(2D)2.9 (2.0-3.7cm)LVDd3.5 (3.9-5.9cm) LVOT Diameter1.9 (1.8-2.4cm)PWd1.0 (0.7-1.1cm) IVSs1.3 (0.8-1.2cm)LVDs2.4 (2.5-4.0cm) FS (%) 33.0 %PWs1.2 (0.8-1.2cm) SV32.8 mlLVEF(%)62.5 (>50%) Aortic Valve AoV Peak Hero.74.0cm/sAoV VTI11.5cm AO Peak GR.2.2mmHgLVOT Peak Hero.60.6cm/s LVOT VTI 11.02cmAO Mean GR.1mmHg TIM (VMAX)1.64fc0QAT (VTI)2.62cm2 Mitral Valve MV E Xfncxsgw55.5cm/sMV DECEL [id number] MV A Azlrqoxq482.1cm/sMV LBM769gm E/A Ratio0.4MVA (PHT)2.15cm2 TDI E/Lateral E'7.2E/Medial E'7.1 Pulmonary Valve PV Peak Vdkmxsfl996.2cm/sPV Peak Grad.4mmHg LEFT VENTRICLE The left ventricle is normal size. There is mild concentric left ventricular hypertrophy. The left ve ntricular systolic function is normal. The Ejection Fraction is 55-60%. There is normal LV segmental wall motion. Transmitral Doppler flow pattern is Grade I-abnormal relaxation pattern. RIGHT VENTRICLE The right ventricle is normal size. There is normal right ventricular wall thickness. The right ventr icular systolic function is normal. ATRIA The left atrium size is normal. The right atrium size is normal. The interatrial septum is intact wit h no evidence for an atrial septal defect or patent foramen ovale as noted on 2-D or Doppler imaging. AORTIC VALVE The aortic valve is trileaflet. The aortic valve is calcified but opens well. Doppler and Color Flow revealed no significant aortic regurgitation. There is no significant aortic valvular stenosis. MITRAL VALVE The mitral valve is normal in structure and function. There is no evidence of mitral valve prolapse. There is no mitral valve stenosis. Doppler and Color-flow revealed trace mitral regurgitation. TRICUSPID VALVE The tricuspid valve is normal in structure and function. Doppler and Color Flow revealed no tricuspid valve regurgitation noted. There is no tricuspid valve prolapse or vegetation. There is no tricuspid valve stenosis. PULMONIC VALVE Pulmonic not well visualized. GREAT VESSELS The aortic root is normal in size. The ascending aorta is normal in size. PERICARDIAL EFFUSION There is no evidence of significant pericardial effusion. Critical Notification Critical Value: No <Conclusion> Technically difficult study. The left ventricular systolic function is normal. The Ejection Fraction is 55-60%. There is normal LV segmental wall motion. Transmitral Doppler flow pattern is Grade I-abnormal relaxation pattern. Doppler and Color-flow revealed trace mitral regurgitation. Signed by : Rolo Causey, Electronically Approved : 04/25/2018 15:35:11
[2018-04-25] MEDS: CARVEDILOL 6.25 MG TABLET. PO SCH (16:14)
[2018-04-25] MEDS: amLODIPine BESYLATE 5 MG TABLET PO SCH (16:15)
[2018-04-25 16:21] LABS: CHOLESTEROL/HDL RATIO 3.6
[2018-04-25 16:24] VITALS: BP 161/84
[2018-04-25] MEDS: traMADol 50 MG TABLET PO PRN ×2 (17:15→22:16)
[2018-04-25] MEDS: INSULIN LISPRO 300 UNITS/3 ML INSULN.PEN. SQ SCH (17:23)
[2018-04-25 19:25] VITALS: BP 140/72
[2018-04-25 21:10] LABS: HEMOGLOBIN A1C 13.6 % (4.8-5.6)
[2018-04-25] MEDS: ATORVASTATIN CALCIUM 40 MG TABLET. PO SCH (22:07)
[2018-04-25] MEDS: INSULIN GLARGINE 300 UNITS/3 ML INSULN.PEN. SQ SCH (22:24)
[2018-04-25 23:44] VITALS: BP 139/88
[2018-04-26 00:41] LABS: BILIRUBIN,URINE NEGATIVE (NEG); CLARITY,URINE CLEAR; COLOR,URINE YELLOW; NITRITE,URINE NEGATIVE (NEG); PROTEIN,URINE 100 mg/dL (NEG-TRACE); UROBILINOGEN,URINE 0.2 mg/dL (0.2 mg/dL)
[2018-04-26 00:52] LABS: BACTERIA,URINE MANY /HPF (0-FEW)
[2018-04-26 00:53] LABS: SQUAMOUS EPITHELIAL CELL,UR MOD /LPF
[2018-04-26 03:30] VITALS: BP 127/69
[2018-04-26 05:32] LABS: CALCIUM 8.7 mg/dL (8.5-10.1); CREATININE 2.2 mg/dL (0.6-1.0); GFR 22.1
[2018-04-26 05:33] LABS: CHOLESTEROL/HDL RATIO 3.8
[2018-04-26 07:30] VITALS: BP 116/70
[2018-04-26] MEDS: traMADol 50 MG TABLET PO PRN ×3 (09:15→20:36)
[2018-04-26] MEDS: ASPIRIN ENTERIC COATED 81 MG TABLET.DR. PO SCH (09:15)
[2018-04-26] MEDS: CETIRIZINE HCL 10 MG TABLET. PO SCH (09:15)
[2018-04-26] MEDS: GLIMEPIRIDE 2 MG TABLET. PO SCH (09:16)
[2018-04-26] MEDS: amLODIPine BESYLATE 5 MG TABLET PO SCH (09:16)
[2018-04-26] MEDS: LINAGLIPTIN 5 MG TABLET PO SCH (09:17)
[2018-04-26] MEDS: CARVEDILOL 6.25 MG TABLET. PO SCH ×2 (09:17→18:06)
[2018-04-26] MEDS: INSULIN LISPRO 300 UNITS/3 ML INSULN.PEN. SQ SCH ×4 (09:24→21:25)
[2018-04-26 10:37] LABS: BASO % 0 % (0-3); EOS # 0.1 x10^3/uL (0.0-0.7); EOS % 1 % (0-3); HEMATOCRIT 38.5 % (36.0-47.0); HEMOGLOBIN 12.5 g/dL (12.0-15.5); LYMPH # 2.6 x10^3/uL (1.0-4.8); LYMPH % 23 % (24-48); MEAN CORPUSCULAR HEMOGLOBIN 27 pg (25-35); MEAN CORPUSCULAR HGB CONC 33 g/dL (31-37); MEAN CORPUSCULAR VOLUME 84 fL (79-100); MONO # 0.6 x10^3/uL (0.0-1.1); MONO % 5 % (0-9); NEUT % 70 % (31-73); PLATELET COUNT 238 x10^3/uL (140-400); RED CELL DISTRIBUTION WIDTH 14.4 % (11.5-14.5); WHITE BLOOD COUNT 11.3 x10^3/uL (4.0-11.0)
[2018-04-26 11:20] VITALS: BP 106/65
[2018-04-26] MEDS: PARICALCITOL 1 MCG CAPSULE PO SCH (12:03)
--- NOTE | 2018-04-26 12:09 | PDOC ---
PROGRESS NOTES Chief Complaint Chief Complaint Chest pain: unstable angina Uncontrolled DM2 SEJAL H/o Hyperlipidemia H/o HTN History of Present Illness History of Present Illness Pt seen and examined. Pt is very pleasant and sitting in bedside chair and in NAD. ADRIEN RN Vitals Vitals Vital Signs Date Time Temp Pulse Resp B/P (MAP) Pulse Ox O2 Delivery O2 Flow Rate FiO2 04/26/18 11:20 99.0 88 18 106/65 (79) 96 Room Air 99.0 Physical Exam General: Oriented X3, Cooperative, mild distress Heart: Regular rate (SR), Normal S1, Normal S2, Other (2/6 systolic murmur to LLS border) Abdomen: Soft, No tenderness Extremities: No cyanosis, Other (trace LE edema) Skin: No breakdown, No significant lesion Labs LABS Laboratory Tests Test 04/25/18 12:30 04/25/18 17:00 04/25/18 17:30 04/25/18 22:17 Troponin I Quantitative 0.864 ng/mL (0.000-0.055) 2.464 ng/mL (0.000-0.055) Triglycerides Level 450 mg/dL (0-150) Cholesterol Level 124 mg/dL (0-200) LDL Cholesterol, Calculated 0 mg/dL (0-100) VLDL Cholesterol, Calculated 90 mg/dL (0-40) Non-HDL Cholesterol Calculated 90 mg/dL (0-129) HDL Cholesterol 34 mg/dL (40-60) Cholesterol/HDL Ratio 3.6 Glucose (Fingerstick) 283 mg/dL (70-99) 392 mg/dL (70-99) Test 04/25/18 23:50 04/26/18 04:00 04/26/18 07:29 04/26/18 09:00 Urine Collection Type Unknown Urine Color Yellow Urine Clarity Clear Urine pH 6.0 Urine Specific [place] 1.025 Urine Protein 100 mg/dL (NEG-TRACE) Urine Glucose (UA) >=1000 mg/dL (NEG) Urine Ketones (Stick) Negative mg/dL (NEG) Urine Blood Trace (NEG) Urine Nitrite Negative (NEG) Urine Bilirubin Negative (NEG) Urine Urobilinogen Dipstick 0.2 mg/dL (0.2 mg/dL) Urine Leukocyte Esterase Negative (NEG) Urine RBC 6-10 /HPF (0-2) Urine WBC 11-20 /HPF (0-4) Urine Squamous Epithelial Cells Mod /LPF Urine Bacteria Many /HPF (0-FEW) Sodium Level 138 mmol/L (136-145) Potassium Level 4.0 mmol/L (3.5-5.1) Chloride Level 102 mmol/L (98-107) Carbon Dioxide Level 26 mmol/L (21-32) Anion Gap 10 (6-14) Blood Urea Nitrogen 28 mg/dL (7-20) Creatinine 2.2 mg/dL (0.6-1.0) Estimated GFR (Cockcroft-Gault) 22.1 Glucose Level 321 mg/dL (70-99) Calcium Level 8.7 mg/dL (8.5-10.1) Troponin I Quantitative 1.986 ng/mL (0.000-0.055) Triglycerides Level 555 mg/dL (0-150) Cholesterol Level 121 mg/dL (0-200) LDL Cholesterol, Calculated -22 mg/dL (0-100) VLDL Cholesterol, Calculated 111 mg/dL (0-40) Non-HDL Cholesterol Calculated 89 mg/dL (0-129) HDL Cholesterol 32 mg/dL (40-60) Cholesterol/HDL Ratio 3.8 Glucose (Fingerstick) 287 mg/dL (70-99) White Blood Count 11.3 x10^3/uL (4.0-11.0) Red Blood Count 4.60 x10^6/uL (3.50-5.40) Hemoglobin 12.5 g/dL (12.0-15.5) Hematocrit 38.5 % (36.0-47.0) Mean Corpuscular Volume 84 fL (79-100) Mean Corpuscular Hemoglobin 27 pg (25-35) Mean Corpuscular Hemoglobin Concent 33 g/dL (31-37) Red Cell Distribution Width 14.4 % (11.5-14.5) Platelet Count 238 x10^3/uL (140-400) Neutrophils (%) (Auto) 70 % (31-73) Lymphocytes (%) (Auto) 23 % (24-48) Monocytes (%) (Auto) 5 % (0-9) Eosinophils (%) (Auto) 1 % (0-3) Basophils (%) (Auto) 0 % (0-3) Neutrophils # (Auto) 8.0 x10^3uL (1.8-7.7) Lymphocytes # (Auto) 2.6 x10^3/uL (1.0-4.8) Monocytes # (Auto) 0.6 x10^3/uL (0.0-1.1) Eosinophils # (Auto) 0.1 x10^3/uL (0.0-0.7) Basophils # (Auto) 0.0 x10^3/uL (0.0-0.2) Test 04/26/18 11:34 Glucose (Fingerstick) 314 mg/dL (70-99) Review of Systems Review of Systems Pt denies SOA. She admits to mild chest pain located in the center of her chest. Assessment and Plan Assessmemt and Plan Problems Medical Problems: (1) Chronic renal failure Status: Acute (2) Hyperglycemia Status: Acute (3) NSTEMI (non-ST elevated myocardial infarction) Status: Acute Assessment: Chest pain: unstable angina Uncontrolled DM2 SEJAL H/o Hyperlipidemia H/o HTN Plan: Cardiac monitoring Appreciate Subspecialists input Monitor Cr for probable cath Monitor labs PT/OT DVT ppx Comment Review of Relevant I have reviewed the following items reena (where applicable) has been applied. Labs Laboratory Tests Test 04/25/18 08:58 04/25/18 09:20 04/25/18 09:41 04/25/18 11:17 Urine Collection Type Unknown Urine Color Yellow Urine Clarity Clear Urine pH 6.5 Urine Specific [place] 1.020 Urine Protein 100 mg/dL (NEG-TRACE) Urine Glucose (UA) >=1000 mg/dL (NEG) Urine Ketones (Stick) Negative mg/dL (NEG) Urine Blood Small (NEG) Urine Nitrite Negative (NEG) Urine Bilirubin Negative (NEG) Urine Urobilinogen Dipstick 0.2 mg/dL (0.2 mg/dL) Urine Leukocyte Esterase Negative (NEG) Urine RBC 0 /HPF (0-2) Urine WBC 1-4 /HPF (0-4) Urine Squamous Epithelial Cells Mod /LPF Urine Bacteria Moderate /HPF (0-FEW) Urine Opiates Screen Neg (NEG) Urine Methadone Screen Neg (NEG) Urine Barbiturates Neg (NEG) Urine Phencyclidine Screen Neg (NEG) Urine Amphetamine/Methamphetamine Neg (NEG) Urine Benzodiazepines Screen Neg (NEG) Urine Cocaine Screen Neg (NEG) Urine Cannabinoids Screen Neg (NEG) Urine Ethyl Alcohol Neg (NEG) White Blood Count 13.6 x10^3/uL (4.0-11.0) Red Blood Count 4.69 x10^6/uL (3.50-5.40) Hemoglobin 13.4 g/dL (12.0-15.5) Hematocrit 39.4 % (36.0-47.0) Mean Corpuscular Volume 84 fL (79-100) Mean Corpuscular Hemoglobin 29 pg (25-35) Mean Corpuscular Hemoglobin Concent 34 g/dL (31-37) Red Cell Distribution Width 14.3 % (11.5-14.5) Platelet Count 272 x10^3/uL (140-400) Neutrophils (%) (Auto) 76 % (31-73) Lymphocytes (%) (Auto) 18 % (24-48) Monocytes (%) (Auto) 5 % (0-9) Eosinophils (%) (Auto) 1 % (0-3) Basophils (%) (Auto) 0 % (0-3) Neutrophils # (Auto) 10.3 x10^3uL (1.8-7.7) Lymphocytes # (Auto) 2.4 x10^3/uL (1.0-4.8) Monocytes # (Auto) 0.7 x10^3/uL (0.0-1.1) Eosinophils # (Auto) 0.1 x10^3/uL (0.0-0.7) Basophils # (Auto) 0.1 x10^3/uL (0.0-0.2) Sodium Level 137 mmol/L (136-145) Potassium Level 4.1 mmol/L (3.5-5.1) Chloride Level 97 mmol/L (98-107) Carbon Dioxide Level 27 mmol/L (21-32) Anion Gap 13 (6-14) Blood Urea Nitrogen 25 mg/dL (7-20) Creatinine 2.1 mg/dL (0.6-1.0) Estimated GFR (Cockcroft-Gault) 23.3 BUN/Creatinine Ratio 12 (6-20) Glucose Level 575 mg/dL (70-99) Hemoglobin A1c 13.6 % (4.8-5.6) Calcium Level 9.0 mg/dL (8.5-10.1) Magnesium Level 2.1 mg/dL (1.8-2.4) Total Bilirubin 0.2 mg/dL (0.2-1.0) Aspartate Amino Transf (AST/SGOT) 16 U/L (15-37) Alanine Aminotransferase (ALT/SGPT) 20 U/L (14-59) Alkaline Phosphatase 120 U/L (46-116) Troponin I Quantitative 0.057 ng/mL (0.000-0.055) KP-[id number]-Type Natriuretic Peptide 298 pg/mL (0-124) Total Protein 7.1 g/dL (6.4-8.2) Albumin 3.3 g/dL (3.4-5.0) Albumin/Globulin Ratio 0.9 (1.0-1.7) Thyroid Stimulating Hormone (TSH) 0.581 uIU/mL (0.358-3.74) Bedside Troponin I 0.01 ng/ml (<0.08) Glucose (Fingerstick) 483 mg/dL (70-99) Test 04/25/18 12:30 04/25/18 17:00 04/25/18 17:30 04/25/18 22:17 Troponin I Quantitative 0.864 ng/mL (0.000-0.055) 2.464 ng/mL (0.000-0.055) Triglycerides Level 450 mg/dL (0-150) Cholesterol Level 124 mg/dL (0-200) LDL Cholesterol, Calculated 0 mg/dL (0-100) VLDL Cholesterol, Calculated 90 mg/dL (0-40) Non-HDL Cholesterol Calculated 90 mg/dL (0-129) HDL Cholesterol 34 mg/dL (40-60) Cholesterol/HDL Ratio 3.6 Glucose (Fingerstick) 283 mg/dL (70-99) 392 mg/dL (70-99) Test 04/25/18 23:50 04/26/18 04:00 04/26/18 07:29 04/26/18 09:00 Urine Collection Type Unknown Urine Color Yellow Urine Clarity Clear Urine pH 6.0 Urine Specific [place] 1.025 Urine Protein 100 mg/dL (NEG-TRACE) Urine Glucose (UA) >=1000 mg/dL (NEG) Urine Ketones (Stick) Negative mg/dL (NEG) Urine Blood Trace (NEG) Urine Nitrite Negative (NEG) Urine Bilirubin Negative (NEG) Urine Urobilinogen Dipstick 0.2 mg/dL (0.2 mg/dL) Urine Leukocyte Esterase Negative (NEG) Urine RBC 6-10 /HPF (0-2) Urine WBC 11-20 /HPF (0-4) Urine Squamous Epithelial Cells Mod /LPF Urine Bacteria Many /HPF (0-FEW) Sodium Level 138 mmol/L (136-145) Potassium Level 4.0 mmol/L (3.5-5.1) Chloride Level 102 mmol/L (98-107) Carbon Dioxide Level 26 mmol/L (21-32) Anion Gap 10 (6-14) Blood Urea Nitrogen 28 mg/dL (7-20) Creatinine 2.2 mg/dL (0.6-1.0) Estimated GFR (Cockcroft-Gault) 22.1 Glucose Level 321 mg/dL (70-99) Calcium Level 8.7 mg/dL (8.5-10.1) Troponin I Quantitative 1.986 ng/mL (0.000-0.055) Triglycerides Level 555 mg/dL (0-150) Cholesterol Level 121 mg/dL (0-200) LDL Cholesterol, Calculated -22 mg/dL (0-100) VLDL Cholesterol, Calculated 111 mg/dL (0-40) Non-HDL Cholesterol Calculated 89 mg/dL (0-129) HDL Cholesterol 32 mg/dL (40-60) Cholesterol/HDL Ratio 3.8 Glucose (Fingerstick) 287 mg/dL (70-99) White Blood Count 11.3 x10^3/uL (4.0-11.0) Red Blood Count 4.60 x10^6/uL (3.50-5.40) Hemoglobin 12.5 g/dL (12.0-15.5) Hematocrit 38.5 % (36.0-47.0) Mean Corpuscular Volume 84 fL (79-100) Mean Corpuscular Hemoglobin 27 pg (25-35) Mean Corpuscular Hemoglobin Concent 33 g/dL (31-37) Red Cell Distribution Width 14.4 % (11.5-14.5) Platelet Count 238 x10^3/uL (140-400) Neutrophils (%) (Auto) 70 % (31-73) Lymphocytes (%) (Auto) 23 % (24-48) Monocytes (%) (Auto) 5 % (0-9) Eosinophils (%) (Auto) 1 % (0-3) Basophils (%) (Auto) 0 % (0-3) Neutrophils # (Auto) 8.0 x10^3uL (1.8-7.7) Lymphocytes # (Auto) 2.6 x10^3/uL (1.0-4.8) Monocytes # (Auto) 0.6 x10^3/uL (0.0-1.1) Eosinophils # (Auto) 0.1 x10^3/uL (0.0-0.7) Basophils # (Auto) 0.0 x10^3/uL (0.0-0.2) Test 04/26/18 11:34 Glucose (Fingerstick) 314 mg/dL (70-99) Laboratory Tests Test 04/25/18 12:30 04/25/18 17:00 04/25/18 17:30 04/25/18 22:17 Troponin I Quantitative 0.864 ng/mL (0.000-0.055) 2.464 ng/mL (0.000-0.055) Triglycerides Level 450 mg/dL (0-150) Cholesterol Level 124 mg/dL (0-200) LDL Cholesterol, Calculated 0 mg/dL (0-100) VLDL Cholesterol, Calculated 90 mg/dL (0-40) Non-HDL Cholesterol Calculated 90 mg/dL (0-129) HDL Cholesterol 34 mg/dL (40-60) Cholesterol/HDL Ratio 3.6 Glucose (Fingerstick) 283 mg/dL (70-99) 392 mg/dL (70-99) Test 04/25/18 23:50 04/26/18 04:00 04/26/18 07:29 04/26/18 09:00 Urine Collection Type Unknown Urine Color Yellow Urine Clarity Clear Urine pH 6.0 Urine Specific [place] 1.025 Urine Protein 100 mg/dL (NEG-TRACE) Urine Glucose (UA) >=1000 mg/dL (NEG) Urine Ketones (Stick) Negative mg/dL (NEG) Urine Blood Trace (NEG) Urine Nitrite Negative (NEG) Urine Bilirubin Negative (NEG) Urine Urobilinogen Dipstick 0.2 mg/dL (0.2 mg/dL) Urine Leukocyte Esterase Negative (NEG) Urine RBC 6-10 /HPF (0-2) Urine WBC 11-20 /HPF (0-4) Urine Squamous Epithelial Cells Mod /LPF Urine Bacteria Many /HPF (0-FEW) Sodium Level 138 mmol/L (136-145) Potassium Level 4.0 mmol/L (3.5-5.1) Chloride Level 102 mmol/L (98-107) Carbon Dioxide Level 26 mmol/L (21-32) Anion Gap 10 (6-14) Blood Urea Nitrogen 28 mg/dL (7-20) Creatinine 2.2 mg/dL (0.6-1.0) Estimated GFR (Cockcroft-Gault) 22.1 Glucose Level 321 mg/dL (70-99) Calcium Level 8.7 mg/dL (8.5-10.1) Troponin I Quantitative 1.986 ng/mL (0.000-0.055) Triglycerides Level 555 mg/dL (0-150) Cholesterol Level 121 mg/dL (0-200) LDL Cholesterol, Calculated -22 mg/dL (0-100) VLDL Cholesterol, Calculated 111 mg/dL (0-40) Non-HDL Cholesterol Calculated 89 mg/dL (0-129) HDL Cholesterol 32 mg/dL (40-60) Cholesterol/HDL Ratio 3.8 Glucose (Fingerstick) 287 mg/dL (70-99) White Blood Count 11.3 x10^3/uL (4.0-11.0) Red Blood Count 4.60 x10^6/uL (3.50-5.40) Hemoglobin 12.5 g/dL (12.0-15.5) Hematocrit 38.5 % (36.0-47.0) Mean Corpuscular Volume 84 fL (79-100) Mean Corpuscular Hemoglobin 27 pg (25-35) Mean Corpuscular Hemoglobin Concent 33 g/dL (31-37) Red Cell Distribution Width 14.4 % (11.5-14.5) Platelet Count 238 x10^3/uL (140-400) Neutrophils (%) (Auto) 70 % (31-73) Lymphocytes (%) (Auto) 23 % (24-48) Monocytes (%) (Auto) 5 % (0-9) Eosinophils (%) (Auto) 1 % (0-3) Basophils (%) (Auto) 0 % (0-3) Neutrophils # (Auto) 8.0 x10^3uL (1.8-7.7) Lymphocytes # (Auto) 2.6 x10^3/uL (1.0-4.8) Monocytes # (Auto) 0.6 x10^3/uL (0.0-1.1) Eosinophils # (Auto) 0.1 x10^3/uL (0.0-0.7) Basophils # (Auto) 0.0 x10^3/uL (0.0-0.2) Test 04/26/18 11:34 Glucose (Fingerstick) 314 mg/dL (70-99) Medications Current Medications Morphine Sulfate (Morphine Sulfate) 2 mg 1X ONCE IV Last administered on at 09:24; Start 04/25/18 at 09:00; Stop 04/25/18 at 09:01; Status DC Insulin Human Regular (HumuLIN R VIAL) 8 unit 1X ONCE IV Last administered on 04/25/18at 10:51; Start 04/25/18 at 10:30; Stop 04/25/18 at 10:31; Status DC Ondansetron HCl (Zofran) 4 mg PRN Q8HRS PRN IV NAUSEA/VOMITING Last administered on 04/25/18at 17:15; Start 04/25/18 at 10:30; Stop 04/26/18 at 10:29 ; Status DC Morphine Sulfate (Morphine Sulfate) 4 mg PRN Q2HR PRN IV PAIN; Start 04/25/18 at 10:30; Stop 04/26/18 at 10:29; Status DC Acetaminophen (Tylenol) 650 mg PRN Q4HRS PRN PO FEVER; Start 04/25/18 at 10:30 ; Stop 04/26/18 at 10:29; Status DC Nitroglycerin (Nitrostat) 0.4 mg PRN Q5MIN PRN SL CHEST PAIN Last administered on 04/25/18at 10:55; Start 04/25/18 at 10:30; Stop 04/26/18 at 10:29; Status DC Dextrose (Dextrose 50%-Water Syringe) 12.5 gm PRN Q15MIN PRN IV SEE COMMENTS; Start 04/25/18 at 10:30 Insulin Human Lispro (HumaLOG) 12 units 1X ONCE SQ Last administered on at 12:46; Start 04/25/18 at 12:15; Stop 04/25/18 at 12:17; Status DC Insulin Human Lispro (HumaLOG) 0-9 UNITS TIDWMEALS SQ Last administered on 04/26at 09:24; Start 04/25/18 at 17:00 Dextrose (Dextrose 50%-Water Syringe) 12.5 gm PRN Q15MIN PRN IV SEE COMMENTS; Start 04/25/18 at 12:15; Status UNV Sodium Chloride 1,000 ml @ 75 mls/hr 1X ONCE IV Last administered on at 16:14; Start 04/25/18 at 12:45; Stop 04/26/18 at 02:04; Status DC Labetalol HCl (Normodyne Iv Push) 20 mg PRN Q2HR PRN IVP HYPERTENSION, SEE COMMENTS; Start 04/25/18 at 12:45 Aspirin (Ecotrin) 81 mg DAILYWBKFT PO Last administered on 04/26/18at 09:15; Start 04/26/18 at 08:00 Amlodipine Besylate (Norvasc) 5 mg DAILY PO Last administered on 04/26/18at 09: 16; Start 04/25/18 at 13:00 Carvedilol (Coreg) 6.25 mg BIDWMEALS PO Last administered on 04/26/18at 09:17; Start 04/25/18 at 17:00 Enoxaparin Sodium (Lovenox 60mg Syringe) 60 mg 1X ONCE SQ Last administered on 04/25/18at 16:15; Start 04/25/18 at 13:00; Stop 04/25/18 at 13:02; Status DC Cetirizine HCl (ZyrTEC) 10 mg DAILY PO Last administered on 04/26/18at 09:15; Start 04/26/18 at 09:00 Insulin Glargine (Lantus) 20 units QHS SQ Last administered on 04/25/18at 22:24 ; Start 04/25/18 at 21:00 Paricalcitol (Zemplar) 1 mcg DAILY PO ; Start 04/26/18 at 09:00 Tramadol HCl (Ultram) 50 mg PRN Q4HRS PRN PO PAIN Last administered on at 09:15; Start 04/25/18 at 16:45 Glimepiride (Amaryl) 1 mg DAILY PO Last administered on 04/26/18at 09:16; Start 04/26/18 at 09:00 Atorvastatin Calcium (Lipitor) 40 mg QHS PO Last administered on 04/25/18at 22: 07; Start 04/25/18 at 21:00 Linagliptin (Tradjenta) 5 mg DAILY PO Last administered on 04/26/18at 09:17; Start 04/26/18 at 09:00 Insulin Human Lispro (HumaLOG) 5 units 1X ONCE SQ Last administered on at 22:33; Start 04/25/18 at 22:30; Stop 04/25/18 at 22:45; Status DC Active Scripts Active Reported Zemplar (Paricalcitol) 1 Mcg Capsule 1 Mcg PO DAILY Lantus Solostar (Insulin Glargine,Hum.rec.anlog) 100 Unit/1 Ml Insuln.pen 20 Unit SQ QHS Carvedilol 6.25 Mg Tablet 6.25 Mg PO BIDWMEALS Cetirizine Hcl 10 Mg Tablet 10 Mg PO DAILY Amlodipine Besylate 5 Mg Tablet 5 Mg PO DAILY Tramadol Hcl 50 Mg Tablet 50 Mg PO Q4HRS PRN Glimepiride 1 Mg Tablet 1 Mg PO DAILY Januvia (Sitagliptin Phosphate) 50 Mg Tablet 50 Mg PO DAILY Crestor (Rosuvastatin Calcium) 20 Mg Tablet 20 Mg PO HS Vitals/I & O Vital Sign - Last 24 Hours 04/25/18 04/25/18 04/25/18 04/25/18 14:00 15:00 16:14 16:15 Temp 99.1 99.1 Pulse 82 81 82 Resp 20 B/P (MAP) 161/84 (109) Pulse Ox 97 O2 Delivery Room Air Room Air 04/25/18 04/25/18 04/25/18 04/25/18 16:24 19:25 20:00 22:16 Temp 98.3 98.3 Pulse 84 87 Resp 17 18 B/P (MAP) 161/84 (109) 140/72 (94) Pulse Ox 97 97 O2 Delivery Room Air Room Air Room Air 04/25/18 04/25/18 04/26/18 04/26/18 23:20 23:44 03:30 07:30 Temp 98.9 99.0 98.6 98.9 99.0 98.6 Pulse 88 75 80 Resp 20 18 18 18 B/P (MAP) 139/88 (105) 127/69 (88) 116/70 (85) Pulse Ox 97 97 95 97 O2 Delivery Room Air Room Air Room Air Room Air 04/26/18 04/26/18 04/26/18 04/26/18 08:15 09:16 09:17 11:20 Temp 99.0 99.0 Pulse 80 80 88 Resp 18 B/P (MAP) 106/65 (79) Pulse Ox 96 O2 Delivery Room Air Room Air Intake and Output 04/25/18 04/25/18 04/26/18 15:00 23:00 07:00 Intake Total 0 ml 850 ml Output Total 250 ml Balance 0 ml 600 ml RANDELL ROWE III DO Apr 26, 2018 12:09
--- NOTE | 2018-04-26 12:54 | PDOC ---
Renal-Progress Notes Subjective Notes Notes NO NEW COMPLAINTS History of Present Illness Hx of present illness STABLE Vitals Vitals Vital Signs Date Time Temp Pulse Resp B/P (MAP) Pulse Ox O2 Delivery O2 Flow Rate FiO2 04/26/18 11:20 99.0 88 18 106/65 (79) 96 Room Air 99.0 Weight Weight [ ] I.O. Intake and Output Intake and Output 04/26/18 07:00 Intake Total 850 ml Output Total 250 ml Balance 600 ml Intake Oral 200 ml IV Total 650 ml Output Urine Total 250 ml # Voids 2 Labs Labs Laboratory Tests Test 04/25/18 17:00 04/25/18 17:30 04/25/18 22:17 04/25/18 23:50 Glucose (Fingerstick) 283 mg/dL (70-99) 392 mg/dL (70-99) Troponin I Quantitative 2.464 ng/mL (0.000-0.055) Urine Collection Type Unknown Urine Color Yellow Urine Clarity Clear Urine pH 6.0 Urine Specific [place] 1.025 Urine Protein 100 mg/dL (NEG-TRACE) Urine Glucose (UA) >=1000 mg/dL (NEG) Urine Ketones (Stick) Negative mg/dL (NEG) Urine Blood Trace (NEG) Urine Nitrite Negative (NEG) Urine Bilirubin Negative (NEG) Urine Urobilinogen Dipstick 0.2 mg/dL (0.2 mg/dL) Urine Leukocyte Esterase Negative (NEG) Urine RBC 6-10 /HPF (0-2) Urine WBC 11-20 /HPF (0-4) Urine Squamous Epithelial Cells Mod /LPF Urine Bacteria Many /HPF (0-FEW) Test 04/26/18 04:00 04/26/18 07:29 04/26/18 09:00 04/26/18 11:34 Sodium Level 138 mmol/L (136-145) Potassium Level 4.0 mmol/L (3.5-5.1) Chloride Level 102 mmol/L (98-107) Carbon Dioxide Level 26 mmol/L (21-32) Anion Gap 10 (6-14) Blood Urea Nitrogen 28 mg/dL (7-20) Creatinine 2.2 mg/dL (0.6-1.0) Estimated GFR (Cockcroft-Gault) 22.1 Glucose Level 321 mg/dL (70-99) Calcium Level 8.7 mg/dL (8.5-10.1) Troponin I Quantitative 1.986 ng/mL (0.000-0.055) Triglycerides Level 555 mg/dL (0-150) Cholesterol Level 121 mg/dL (0-200) LDL Cholesterol, Calculated -22 mg/dL (0-100) VLDL Cholesterol, Calculated 111 mg/dL (0-40) Non-HDL Cholesterol Calculated 89 mg/dL (0-129) HDL Cholesterol 32 mg/dL (40-60) Cholesterol/HDL Ratio 3.8 Glucose (Fingerstick) 287 mg/dL (70-99) 314 mg/dL (70-99) White Blood Count 11.3 x10^3/uL (4.0-11.0) Red Blood Count 4.60 x10^6/uL (3.50-5.40) Hemoglobin 12.5 g/dL (12.0-15.5) Hematocrit 38.5 % (36.0-47.0) Mean Corpuscular Volume 84 fL (79-100) Mean Corpuscular Hemoglobin 27 pg (25-35) Mean Corpuscular Hemoglobin Concent 33 g/dL (31-37) Red Cell Distribution Width 14.4 % (11.5-14.5) Platelet Count 238 x10^3/uL (140-400) Neutrophils (%) (Auto) 70 % (31-73) Lymphocytes (%) (Auto) 23 % (24-48) Monocytes (%) (Auto) 5 % (0-9) Eosinophils (%) (Auto) 1 % (0-3) Basophils (%) (Auto) 0 % (0-3) Neutrophils # (Auto) 8.0 x10^3uL (1.8-7.7) Lymphocytes # (Auto) 2.6 x10^3/uL (1.0-4.8) Monocytes # (Auto) 0.6 x10^3/uL (0.0-1.1) Eosinophils # (Auto) 0.1 x10^3/uL (0.0-0.7) Basophils # (Auto) 0.0 x10^3/uL (0.0-0.2) Review of Systems Constitutional: yes: malaise, weakness, alert, oriented Ears/Nose/Throat: Yes: no symptom reported Eyes: Yes: no symptom reported Pulmonary: Yes no symptom reported Cardiovascular: Yes chest pain Gastrointestional: Yes: no symptom reported Genitourinary: Yes: no symptom reported Musculoskeletal: Yes: no symptom reported Skin: Yes no symptom reported Psychiatric/Neurological: Yes: no symptom reported Endocrine: Yes: no symptom reported Physical Exam General Appearance: no apparent distress Skin: warm Respiratory: decreased breath sounds Heart: S1S2 Abdomen: soft, bowel sounds present Genitourinary: bladder flat Extremities: pulses present Neurology: alert Musculoskeletal: Osteoarthritis Assessment Assessment IMP DEHYDRATION-BETTER AFTER IVF'S HYPERGLYCEMIA DM II CKD STAGE 3 CHEST PAIN PLAN CARDIOLOGY EVAL WILL NEED IVF'S AND EUVOLEMIA IF CONTRAST EXPOSURE IS NEEDED WILL FOLLOW GARRETT VALDEZ MD Apr 26, 2018 12:54
[2018-04-26 14:52] VITALS: BP 107/62
--- NOTE | 2018-04-26 15:50 | PDOC ---
DOMINGA MISHRA [employer]ION [employer] 04/26/18 1550: CARDIO Progress Notes Date and Time Date of Service 04/26/2018 Time of Evaluation 1230 Subjective Subjective: No Chest Pain, No shortness of breath, No Palpitations Vitals Vitals Vital Signs Date Time Temp Pulse Resp B/P (MAP) Pulse Ox O2 Delivery O2 Flow Rate FiO2 04/26/18 14:52 98.8 85 18 107/62 (77) 95 Room Air 98.8 Weight Weight [ ] Input and Output Intake and Output Intake and Output 04/26/18 07:00 Intake Total 850 ml Output Total 250 ml Balance 600 ml Intake Oral 200 ml IV Total 650 ml Output Urine Total 250 ml # Voids 2 Laboratory Labs Laboratory Tests Test 04/25/18 17:00 04/25/18 17:30 04/25/18 22:17 04/25/18 23:50 Glucose (Fingerstick) 283 mg/dL (70-99) 392 mg/dL (70-99) Troponin I Quantitative 2.464 ng/mL (0.000-0.055) Urine Collection Type Unknown Urine Color Yellow Urine Clarity Clear Urine pH 6.0 Urine Specific [place] 1.025 Urine Protein 100 mg/dL (NEG-TRACE) Urine Glucose (UA) >=1000 mg/dL (NEG) Urine Ketones (Stick) Negative mg/dL (NEG) Urine Blood Trace (NEG) Urine Nitrite Negative (NEG) Urine Bilirubin Negative (NEG) Urine Urobilinogen Dipstick 0.2 mg/dL (0.2 mg/dL) Urine Leukocyte Esterase Negative (NEG) Urine RBC 6-10 /HPF (0-2) Urine WBC 11-20 /HPF (0-4) Urine Squamous Epithelial Cells Mod /LPF Urine Bacteria Many /HPF (0-FEW) Test 04/26/18 04:00 04/26/18 07:29 04/26/18 09:00 04/26/18 11:34 Sodium Level 138 mmol/L (136-145) Potassium Level 4.0 mmol/L (3.5-5.1) Chloride Level 102 mmol/L (98-107) Carbon Dioxide Level 26 mmol/L (21-32) Anion Gap 10 (6-14) Blood Urea Nitrogen 28 mg/dL (7-20) Creatinine 2.2 mg/dL (0.6-1.0) Estimated GFR (Cockcroft-Gault) 22.1 Glucose Level 321 mg/dL (70-99) Calcium Level 8.7 mg/dL (8.5-10.1) Troponin I Quantitative 1.986 ng/mL (0.000-0.055) Triglycerides Level 555 mg/dL (0-150) Cholesterol Level 121 mg/dL (0-200) LDL Cholesterol, Calculated -22 mg/dL (0-100) VLDL Cholesterol, Calculated 111 mg/dL (0-40) Non-HDL Cholesterol Calculated 89 mg/dL (0-129) HDL Cholesterol 32 mg/dL (40-60) Cholesterol/HDL Ratio 3.8 Glucose (Fingerstick) 287 mg/dL (70-99) 314 mg/dL (70-99) White Blood Count 11.3 x10^3/uL (4.0-11.0) Red Blood Count 4.60 x10^6/uL (3.50-5.40) Hemoglobin 12.5 g/dL (12.0-15.5) Hematocrit 38.5 % (36.0-47.0) Mean Corpuscular Volume 84 fL (79-100) Mean Corpuscular Hemoglobin 27 pg (25-35) Mean Corpuscular Hemoglobin Concent 33 g/dL (31-37) Red Cell Distribution Width 14.4 % (11.5-14.5) Platelet Count 238 x10^3/uL (140-400) Neutrophils (%) (Auto) 70 % (31-73) Lymphocytes (%) (Auto) 23 % (24-48) Monocytes (%) (Auto) 5 % (0-9) Eosinophils (%) (Auto) 1 % (0-3) Basophils (%) (Auto) 0 % (0-3) Neutrophils # (Auto) 8.0 x10^3uL (1.8-7.7) Lymphocytes # (Auto) 2.6 x10^3/uL (1.0-4.8) Monocytes # (Auto) 0.6 x10^3/uL (0.0-1.1) Eosinophils # (Auto) 0.1 x10^3/uL (0.0-0.7) Basophils # (Auto) 0.0 x10^3/uL (0.0-0.2) Review of Systems Constitutional: yes: malaise, weakness, alert, oriented Ears/Nose/Throat: Yes: no symptom reported Eyes: Yes: no symptom reported Pulmonary: Yes no symptom reported Cardiovascular: Yes chest pain Gastrointestional: Yes: no symptom reported Genitourinary: Yes: no symptom reported Musculoskeletal: Yes: no symptom reported Skin: Yes no symptom reported Psychiatric/Neurological: Yes: no symptom reported Endocrine: Yes: no symptom reported Physical Exam HEENT: Neck Supple W Full Motion Chest: Symmetric LUNGS: Other (basialr crackles) Heart: S1S2, RRR (SR) Abdomen: Soft N/T Extremities: No Calf Tenderness, Other (1+ bilateral LE pitting edema) Neurology: alert, oriented, follow commands Assessment Assessment 1. NSTEMI; Troponin peaked at 2.4, typical features. EF and WM nml 2. Uncontrolled DM2: 500s upon admission. Per PCP 3. SEJAL on CKD3: per nephrology 4. HLP 5. HTN: better controlled Recommendations 1. ASA. Lovenox x1. Continue statin and BP meds. No ACEI/ARB 2. Renal optimization over the weekend and anticipate LHC on Sunday 3. CT chest no contrast and rule out any associated fibrosis with note persistent CHRISTINE. . JEREMY GREENE MD 04/29/18 2154: CARDIO Progress Notes Plan Plan Pt. seen and examined. Late entry for 04/26/2018. Plan for cath after renal optimization. DOMINGA MISHRA APRN Apr 26, 2018 15:50 JEREMY GREENE MD Apr 29, 2018 21:54
--- NOTE | 2018-04-26 16:52 | RAD ---
CT of the chest without contrast, 04/26/2018: HISTORY: Dyspnea, fibrosis Noncontrast scans were obtained as requested. Comparison is made to a study from 05/20/2015. There are mild peripheral reticular opacities primarily in the lower chest bilaterally suggesting scarring/fibrosis. These have progressed slightly since the previous study. A couple of tiny pulmonary nodules appear unchanged, including a 3 mm right upper lobe nodule seen on image 21 of series #2 and a 3 mm left upper lobe nodule seen on image 13 of series #3. No pulmonary mass or dense consolidation is seen. There is no evidence of pleural fluid. There is mild calcific plaquing of the thoracic aorta without evidence of aneurysm. Moderate scattered coronary artery calcifications are present. No mediastinal adenopathy is seen. There is mild bilateral renal cortical scarring. IMPRESSION: 1. Mild bilateral parenchymal scarring, slightly worse than on 05/20/2015. 2. Stable tiny pulmonary nodules. 3. Moderate coronary artery calcifications. 4. No acute abnormality is detected. PQRS Compliance Statement: One or more of the following individualized dose reduction techniques were utilized for this examination: 1. Automated exposure control 2. Adjustment of the mA and/or kV according to patient size 3. Use of iterative reconstruction technique Electronically signed by: Renan Lees MD (04/26/2018 4:48 PM) [facility]
[2018-04-26 19:56] VITALS: BP 103/62
[2018-04-26] MEDS: ATORVASTATIN CALCIUM 40 MG TABLET. PO SCH (20:36)
[2018-04-26] MEDS: INSULIN GLARGINE 300 UNITS/3 ML INSULN.PEN. SQ SCH (21:25)
[2018-04-26 23:16] VITALS: BP 111/59
[2018-04-27 03:00] VITALS: BP 140/74
[2018-04-27] MEDS: traMADol 50 MG TABLET PO PRN ×2 (04:53→21:16)
[2018-04-27 05:21] LABS: BASO % 0 % (0-3); EOS # 0.2 x10^3/uL (0.0-0.7); EOS % 2 % (0-3); HEMOGLOBIN 11.9 g/dL (12.0-15.5); LYMPH # 2.7 x10^3/uL (1.0-4.8); LYMPH % 25 % (24-48); MEAN CORPUSCULAR HEMOGLOBIN 28 pg (25-35); MEAN CORPUSCULAR HGB CONC 33 g/dL (31-37); MEAN CORPUSCULAR VOLUME 84 fL (79-100); MONO # 0.8 x10^3/uL (0.0-1.1); MONO % 7 % (0-9); NEUT # 7.1 x10^3uL (1.8-7.7); NEUT % 66 % (31-73); PLATELET COUNT 221 x10^3/uL (140-400); RED BLOOD COUNT 4.27 x10^6/uL (3.50-5.40); RED CELL DISTRIBUTION WIDTH 14.6 % (11.5-14.5); WHITE BLOOD COUNT 10.7 x10^3/uL (4.0-11.0)
[2018-04-27 05:36] LABS: CREATININE 1.9 mg/dL (0.6-1.0); GFR 26.1; POTASSIUM 3.9 mmol/L (3.5-5.1)
[2018-04-27 07:25] VITALS: BP 123/80
--- NOTE | 2018-04-27 08:33 | PDOC ---
PROGRESS NOTES Chief Complaint Chief Complaint Chest pain: unstable angina Uncontrolled DM2 SEJAL H/o Hyperlipidemia H/o HTN History of Present Illness History of Present Illness Pt seen and examined. Pt is very pleasant and sitting in bedside chair and in some distress. this morning walked to the restroom, experienced worse chest pain radiating into her left arm and back, more short of breath DW RN A/P: Chest pain: unstable angina - will start heparin GTT, was given therapeutic lovenox yesterday, however has SEJAL Uncontrolled DM2 - still > 200mg/dL on every check, will give 5u lispro with meals and increase glargine to 25u QHS, cont sliding scale with meals in addition to mealtime SEJAL - likely vasomotor, given IVF, will monitor H/o Hyperlipidemia H/o HTN FEN - ADA cardiac PPX - heparin FULL CODE cont inpatient for at least additional 2 midnights, has unstable angina Vitals Vitals Vital Signs Date Time Temp Pulse Resp B/P (MAP) Pulse Ox O2 Delivery O2 Flow Rate FiO2 04/27/18 07:25 98.4 85 18 123/80 (94) 98 Room Air 98.4 Physical Exam General: Oriented X3, Cooperative, mild distress Heart: Regular rate (SR), Normal S1, Normal S2, Other (2/6 systolic murmur to LLS border) Abdomen: Soft, No tenderness Extremities: No cyanosis, Other (trace LE edema) Skin: No breakdown, No significant lesion Labs LABS Laboratory Tests Test 04/26/18 09:00 04/26/18 11:34 04/26/18 17:00 04/26/18 20:29 White Blood Count 11.3 x10^3/uL (4.0-11.0) Red Blood Count 4.60 x10^6/uL (3.50-5.40) Hemoglobin 12.5 g/dL (12.0-15.5) Hematocrit 38.5 % (36.0-47.0) Mean Corpuscular Volume 84 fL (79-100) Mean Corpuscular Hemoglobin 27 pg (25-35) Mean Corpuscular Hemoglobin Concent 33 g/dL (31-37) Red Cell Distribution Width 14.4 % (11.5-14.5) Platelet Count 238 x10^3/uL (140-400) Neutrophils (%) (Auto) 70 % (31-73) Lymphocytes (%) (Auto) 23 % (24-48) Monocytes (%) (Auto) 5 % (0-9) Eosinophils (%) (Auto) 1 % (0-3) Basophils (%) (Auto) 0 % (0-3) Neutrophils # (Auto) 8.0 x10^3uL (1.8-7.7) Lymphocytes # (Auto) 2.6 x10^3/uL (1.0-4.8) Monocytes # (Auto) 0.6 x10^3/uL (0.0-1.1) Eosinophils # (Auto) 0.1 x10^3/uL (0.0-0.7) Basophils # (Auto) 0.0 x10^3/uL (0.0-0.2) Glucose (Fingerstick) 314 mg/dL (70-99) 309 mg/dL (70-99) 315 mg/dL (70-99) Test 04/27/18 03:00 04/27/18 04:00 04/27/18 07:50 Magnesium Level 1.9 mg/dL (1.8-2.4) White Blood Count 10.7 x10^3/uL (4.0-11.0) Red Blood Count 4.27 x10^6/uL (3.50-5.40) Hemoglobin 11.9 g/dL (12.0-15.5) Hematocrit 36.0 % (36.0-47.0) Mean Corpuscular Volume 84 fL (79-100) Mean Corpuscular Hemoglobin 28 pg (25-35) Mean Corpuscular Hemoglobin Concent 33 g/dL (31-37) Red Cell Distribution Width 14.6 % (11.5-14.5) Platelet Count 221 x10^3/uL (140-400) Neutrophils (%) (Auto) 66 % (31-73) Lymphocytes (%) (Auto) 25 % (24-48) Monocytes (%) (Auto) 7 % (0-9) Eosinophils (%) (Auto) 2 % (0-3) Basophils (%) (Auto) 0 % (0-3) Neutrophils # (Auto) 7.1 x10^3uL (1.8-7.7) Lymphocytes # (Auto) 2.7 x10^3/uL (1.0-4.8) Monocytes # (Auto) 0.8 x10^3/uL (0.0-1.1) Eosinophils # (Auto) 0.2 x10^3/uL (0.0-0.7) Basophils # (Auto) 0.0 x10^3/uL (0.0-0.2) Sodium Level 138 mmol/L (136-145) Potassium Level 3.9 mmol/L (3.5-5.1) Chloride Level 100 mmol/L (98-107) Carbon Dioxide Level 26 mmol/L (21-32) Anion Gap 12 (6-14) Blood Urea Nitrogen 29 mg/dL (7-20) Creatinine 1.9 mg/dL (0.6-1.0) Estimated GFR (Cockcroft-Gault) 26.1 Glucose Level 297 mg/dL (70-99) Calcium Level 9.0 mg/dL (8.5-10.1) Glucose (Fingerstick) 285 mg/dL (70-99) Assessment and Plan Assessmemt and Plan Problems Medical Problems: (1) Chronic renal failure Status: Acute (2) Hyperglycemia Status: Acute (3) NSTEMI (non-ST elevated myocardial infarction) Status: Acute Comment Review of Relevant I have reviewed the following items reena (where applicable) has been applied. Labs Laboratory Tests Test 04/25/18 08:58 04/25/18 09:20 04/25/18 09:41 04/25/18 11:17 Urine Collection Type Unknown Urine Color Yellow Urine Clarity Clear Urine pH 6.5 Urine Specific [place] 1.020 Urine Protein 100 mg/dL (NEG-TRACE) Urine Glucose (UA) >=1000 mg/dL (NEG) Urine Ketones (Stick) Negative mg/dL (NEG) Urine Blood Small (NEG) Urine Nitrite Negative (NEG) Urine Bilirubin Negative (NEG) Urine Urobilinogen Dipstick 0.2 mg/dL (0.2 mg/dL) Urine Leukocyte Esterase Negative (NEG) Urine RBC 0 /HPF (0-2) Urine WBC 1-4 /HPF (0-4) Urine Squamous Epithelial Cells Mod /LPF Urine Bacteria Moderate /HPF (0-FEW) Urine Opiates Screen Neg (NEG) Urine Methadone Screen Neg (NEG) Urine Barbiturates Neg (NEG) Urine Phencyclidine Screen Neg (NEG) Urine Amphetamine/Methamphetamine Neg (NEG) Urine Benzodiazepines Screen Neg (NEG) Urine Cocaine Screen Neg (NEG) Urine Cannabinoids Screen Neg (NEG) Urine Ethyl Alcohol Neg (NEG) White Blood Count 13.6 x10^3/uL (4.0-11.0) Red Blood Count 4.69 x10^6/uL (3.50-5.40) Hemoglobin 13.4 g/dL (12.0-15.5) Hematocrit 39.4 % (36.0-47.0) Mean Corpuscular Volume 84 fL (79-100) Mean Corpuscular Hemoglobin 29 pg (25-35) Mean Corpuscular Hemoglobin Concent 34 g/dL (31-37) Red Cell Distribution Width 14.3 % (11.5-14.5) Platelet Count 272 x10^3/uL (140-400) Neutrophils (%) (Auto) 76 % (31-73) Lymphocytes (%) (Auto) 18 % (24-48) Monocytes (%) (Auto) 5 % (0-9) Eosinophils (%) (Auto) 1 % (0-3) Basophils (%) (Auto) 0 % (0-3) Neutrophils # (Auto) 10.3 x10^3uL (1.8-7.7) Lymphocytes # (Auto) 2.4 x10^3/uL (1.0-4.8) Monocytes # (Auto) 0.7 x10^3/uL (0.0-1.1) Eosinophils # (Auto) 0.1 x10^3/uL (0.0-0.7) Basophils # (Auto) 0.1 x10^3/uL (0.0-0.2) Sodium Level 137 mmol/L (136-145) Potassium Level 4.1 mmol/L (3.5-5.1) Chloride Level 97 mmol/L (98-107) Carbon Dioxide Level 27 mmol/L (21-32) Anion Gap 13 (6-14) Blood Urea Nitrogen 25 mg/dL (7-20) Creatinine 2.1 mg/dL (0.6-1.0) Estimated GFR (Cockcroft-Gault) 23.3 BUN/Creatinine Ratio 12 (6-20) Glucose Level 575 mg/dL (70-99) Hemoglobin A1c 13.6 % (4.8-5.6) Calcium Level 9.0 mg/dL (8.5-10.1) Magnesium Level 2.1 mg/dL (1.8-2.4) Total Bilirubin 0.2 mg/dL (0.2-1.0) Aspartate Amino Transf (AST/SGOT) 16 U/L (15-37) Alanine Aminotransferase (ALT/SGPT) 20 U/L (14-59) Alkaline Phosphatase 120 U/L (46-116) Troponin I Quantitative 0.057 ng/mL (0.000-0.055) EL-Yjl-[id number]-Type Natriuretic Peptide 298 pg/mL (0-124) Total Protein 7.1 g/dL (6.4-8.2) Albumin 3.3 g/dL (3.4-5.0) Albumin/Globulin Ratio 0.9 (1.0-1.7) Thyroid Stimulating Hormone (TSH) 0.581 uIU/mL (0.358-3.74) Bedside Troponin I 0.01 ng/ml (<0.08) Glucose (Fingerstick) 483 mg/dL (70-99) Test 04/25/18 12:30 04/25/18 17:00 04/25/18 17:30 04/25/18 22:17 Troponin I Quantitative 0.864 ng/mL (0.000-0.055) 2.464 ng/mL (0.000-0.055) Triglycerides Level 450 mg/dL (0-150) Cholesterol Level 124 mg/dL (0-200) LDL Cholesterol, Calculated 0 mg/dL (0-100) VLDL Cholesterol, Calculated 90 mg/dL (0-40) Non-HDL Cholesterol Calculated 90 mg/dL (0-129) HDL Cholesterol 34 mg/dL (40-60) Cholesterol/HDL Ratio 3.6 Glucose (Fingerstick) 283 mg/dL (70-99) 392 mg/dL (70-99) Test 04/25/18 23:50 04/26/18 04:00 04/26/18 07:29 04/26/18 09:00 Urine Collection Type Unknown Urine Color Yellow Urine Clarity Clear Urine pH 6.0 Urine Specific [place] 1.025 Urine Protein 100 mg/dL (NEG-TRACE) Urine Glucose (UA) >=1000 mg/dL (NEG) Urine Ketones (Stick) Negative mg/dL (NEG) Urine Blood Trace (NEG) Urine Nitrite Negative (NEG) Urine Bilirubin Negative (NEG) Urine Urobilinogen Dipstick 0.2 mg/dL (0.2 mg/dL) Urine Leukocyte Esterase Negative (NEG) Urine RBC 6-10 /HPF (0-2) Urine WBC 11-20 /HPF (0-4) Urine Squamous Epithelial Cells Mod /LPF Urine Bacteria Many /HPF (0-FEW) Sodium Level 138 mmol/L (136-145) Potassium Level 4.0 mmol/L (3.5-5.1) Chloride Level 102 mmol/L (98-107) Carbon Dioxide Level 26 mmol/L (21-32) Anion Gap 10 (6-14) Blood Urea Nitrogen 28 mg/dL (7-20) Creatinine 2.2 mg/dL (0.6-1.0) Estimated GFR (Cockcroft-Gault) 22.1 Glucose Level 321 mg/dL (70-99) Calcium Level 8.7 mg/dL (8.5-10.1) Troponin I Quantitative 1.986 ng/mL (0.000-0.055) Triglycerides Level 555 mg/dL (0-150) Cholesterol Level 121 mg/dL (0-200) LDL Cholesterol, Calculated -22 mg/dL (0-100) VLDL Cholesterol, Calculated 111 mg/dL (0-40) Non-HDL Cholesterol Calculated 89 mg/dL (0-129) HDL Cholesterol 32 mg/dL (40-60) Cholesterol/HDL Ratio 3.8 Glucose (Fingerstick) 287 mg/dL (70-99) White Blood Count 11.3 x10^3/uL (4.0-11.0) Red Blood Count 4.60 x10^6/uL (3.50-5.40) Hemoglobin 12.5 g/dL (12.0-15.5) Hematocrit 38.5 % (36.0-47.0) Mean Corpuscular Volume 84 fL (79-100) Mean Corpuscular Hemoglobin 27 pg (25-35) Mean Corpuscular Hemoglobin Concent 33 g/dL (31-37) Red Cell Distribution Width 14.4 % (11.5-14.5) Platelet Count 238 x10^3/uL (140-400) Neutrophils (%) (Auto) 70 % (31-73) Lymphocytes (%) (Auto) 23 % (24-48) Monocytes (%) (Auto) 5 % (0-9) Eosinophils (%) (Auto) 1 % (0-3) Basophils (%) (Auto) 0 % (0-3) Neutrophils # (Auto) 8.0 x10^3uL (1.8-7.7) Lymphocytes # (Auto) 2.6 x10^3/uL (1.0-4.8) Monocytes # (Auto) 0.6 x10^3/uL (0.0-1.1) Eosinophils # (Auto) 0.1 x10^3/uL (0.0-0.7) Basophils # (Auto) 0.0 x10^3/uL (0.0-0.2) Test 04/26/18 11:34 04/26/18 17:00 04/26/18 20:29 04/27/18 03:00 Glucose (Fingerstick) 314 mg/dL (70-99) 309 mg/dL (70-99) 315 mg/dL (70-99) Magnesium Level 1.9 mg/dL (1.8-2.4) Test 04/27/18 04:00 04/27/18 07:50 White Blood Count 10.7 x10^3/uL (4.0-11.0) Red Blood Count 4.27 x10^6/uL (3.50-5.40) Hemoglobin 11.9 g/dL (12.0-15.5) Hematocrit 36.0 % (36.0-47.0) Mean Corpuscular Volume 84 fL (79-100) Mean Corpuscular Hemoglobin 28 pg (25-35) Mean Corpuscular Hemoglobin Concent 33 g/dL (31-37) Red Cell Distribution Width 14.6 % (11.5-14.5) Platelet Count 221 x10^3/uL (140-400) Neutrophils (%) (Auto) 66 % (31-73) Lymphocytes (%) (Auto) 25 % (24-48) Monocytes (%) (Auto) 7 % (0-9) Eosinophils (%) (Auto) 2 % (0-3) Basophils (%) (Auto) 0 % (0-3) Neutrophils # (Auto) 7.1 x10^3uL (1.8-7.7) Lymphocytes # (Auto) 2.7 x10^3/uL (1.0-4.8) Monocytes # (Auto) 0.8 x10^3/uL (0.0-1.1) Eosinophils # (Auto) 0.2 x10^3/uL (0.0-0.7) Basophils # (Auto) 0.0 x10^3/uL (0.0-0.2) Sodium Level 138 mmol/L (136-145) Potassium Level 3.9 mmol/L (3.5-5.1) Chloride Level 100 mmol/L (98-107) Carbon Dioxide Level 26 mmol/L (21-32) Anion Gap 12 (6-14) Blood Urea Nitrogen 29 mg/dL (7-20) Creatinine 1.9 mg/dL (0.6-1.0) Estimated GFR (Cockcroft-Gault) 26.1 Glucose Level 297 mg/dL (70-99) Calcium Level 9.0 mg/dL (8.5-10.1) Glucose (Fingerstick) 285 mg/dL (70-99) Laboratory Tests Test 04/26/18 09:00 04/26/18 11:34 04/26/18 17:00 04/26/18 20:29 White Blood Count 11.3 x10^3/uL (4.0-11.0) Red Blood Count 4.60 x10^6/uL (3.50-5.40) Hemoglobin 12.5 g/dL (12.0-15.5) Hematocrit 38.5 % (36.0-47.0) Mean Corpuscular Volume 84 fL (79-100) Mean Corpuscular Hemoglobin 27 pg (25-35) Mean Corpuscular Hemoglobin Concent 33 g/dL (31-37) Red Cell Distribution Width 14.4 % (11.5-14.5) Platelet Count 238 x10^3/uL (140-400) Neutrophils (%) (Auto) 70 % (31-73) Lymphocytes (%) (Auto) 23 % (24-48) Monocytes (%) (Auto) 5 % (0-9) Eosinophils (%) (Auto) 1 % (0-3) Basophils (%) (Auto) 0 % (0-3) Neutrophils # (Auto) 8.0 x10^3uL (1.8-7.7) Lymphocytes # (Auto) 2.6 x10^3/uL (1.0-4.8) Monocytes # (Auto) 0.6 x10^3/uL (0.0-1.1) Eosinophils # (Auto) 0.1 x10^3/uL (0.0-0.7) Basophils # (Auto) 0.0 x10^3/uL (0.0-0.2) Glucose (Fingerstick) 314 mg/dL (70-99) 309 mg/dL (70-99) 315 mg/dL (70-99) Test 04/27/18 03:00 04/27/18 04:00 04/27/18 07:50 Magnesium Level 1.9 mg/dL (1.8-2.4) White Blood Count 10.7 x10^3/uL (4.0-11.0) Red Blood Count 4.27 x10^6/uL (3.50-5.40) Hemoglobin 11.9 g/dL (12.0-15.5) Hematocrit 36.0 % (36.0-47.0) Mean Corpuscular Volume 84 fL (79-100) Mean Corpuscular Hemoglobin 28 pg (25-35) Mean Corpuscular Hemoglobin Concent 33 g/dL (31-37) Red Cell Distribution Width 14.6 % (11.5-14.5) Platelet Count 221 x10^3/uL (140-400) Neutrophils (%) (Auto) 66 % (31-73) Lymphocytes (%) (Auto) 25 % (24-48) Monocytes (%) (Auto) 7 % (0-9) Eosinophils (%) (Auto) 2 % (0-3) Basophils (%) (Auto) 0 % (0-3) Neutrophils # (Auto) 7.1 x10^3uL (1.8-7.7) Lymphocytes # (Auto) 2.7 x10^3/uL (1.0-4.8) Monocytes # (Auto) 0.8 x10^3/uL (0.0-1.1) Eosinophils # (Auto) 0.2 x10^3/uL (0.0-0.7) Basophils # (Auto) 0.0 x10^3/uL (0.0-0.2) Sodium Level 138 mmol/L (136-145) Potassium Level 3.9 mmol/L (3.5-5.1) Chloride Level 100 mmol/L (98-107) Carbon Dioxide Level 26 mmol/L (21-32) Anion Gap 12 (6-14) Blood Urea Nitrogen 29 mg/dL (7-20) Creatinine 1.9 mg/dL (0.6-1.0) Estimated GFR (Cockcroft-Gault) 26.1 Glucose Level 297 mg/dL (70-99) Calcium Level 9.0 mg/dL (8.5-10.1) Glucose (Fingerstick) 285 mg/dL (70-99) Microbiology 04/25/18 Urine Culture - Final, Complete 04/25/18 Urine Culture Result 1 (ELVIS) - Final, Complete Medications Current Medications Morphine Sulfate (Morphine Sulfate) 2 mg 1X ONCE IV Last administered on at 09:24; Start 04/25/18 at 09:00; Stop 04/25/18 at 09:01; Status DC Insulin Human Regular (HumuLIN R VIAL) 8 unit 1X ONCE IV Last administered on 04/25/18at 10:51; Start 04/25/18 at 10:30; Stop 04/25/18 at 10:31; Status DC Ondansetron HCl (Zofran) 4 mg PRN Q8HRS PRN IV NAUSEA/VOMITING Last administered on 04/25/18at 17:15; Start 04/25/18 at 10:30; Stop 04/26/18 at 10:29 ; Status DC Morphine Sulfate (Morphine Sulfate) 4 mg PRN Q2HR PRN IV PAIN; Start 04/25/18 at 10:30; Stop 04/26/18 at 10:29; Status DC Acetaminophen (Tylenol) 650 mg PRN Q4HRS PRN PO FEVER; Start 04/25/18 at 10:30 ; Stop 04/26/18 at 10:29; Status DC Nitroglycerin (Nitrostat) 0.4 mg PRN Q5MIN PRN SL CHEST PAIN Last administered on 04/25/18at 10:55; Start 04/25/18 at 10:30; Stop 04/26/18 at 10:29; Status DC Dextrose (Dextrose 50%-Water Syringe) 12.5 gm PRN Q15MIN PRN IV SEE COMMENTS; Start 04/25/18 at 10:30 Insulin Human Lispro (HumaLOG) 12 units 1X ONCE SQ Last administered on at 12:46; Start 04/25/18 at 12:15; Stop 04/25/18 at 12:17; Status DC Insulin Human Lispro (HumaLOG) 0-9 UNITS TIDWMEALS SQ Last administered on 04/26at 18:18; Start 04/25/18 at 17:00; Stop 04/26/18 at 20:02; Status DC Dextrose (Dextrose 50%-Water Syringe) 12.5 gm PRN Q15MIN PRN IV SEE COMMENTS; Start 04/25/18 at 12:15; Status UNV Sodium Chloride 1,000 ml @ 75 mls/hr 1X ONCE IV Last administered on at 16:14; Start 04/25/18 at 12:45; Stop 04/26/18 at 02:04; Status DC Labetalol HCl (Normodyne Iv Push) 20 mg PRN Q2HR PRN IVP HYPERTENSION, SEE COMMENTS; Start 04/25/18 at 12:45 Aspirin (Ecotrin) 81 mg DAILYWBKFT PO Last administered on 04/26/18at 09:15; Start 04/26/18 at 08:00 Amlodipine Besylate (Norvasc) 5 mg DAILY PO Last administered on 04/26/18at 09: 16; Start 04/25/18 at 13:00 Carvedilol (Coreg) 6.25 mg BIDWMEALS PO Last administered on 04/26/18at 18:06; Start 04/25/18 at 17:00 Enoxaparin Sodium (Lovenox 60mg Syringe) 60 mg 1X ONCE SQ Last administered on 04/25/18at 16:15; Start 04/25/18 at 13:00; Stop 04/25/18 at 13:02; Status DC Cetirizine HCl (ZyrTEC) 10 mg DAILY PO Last administered on 04/26/18at 09:15; Start 04/26/18 at 09:00 Insulin Glargine (Lantus) 20 units QHS SQ Last administered on 04/26/18at 21:25 ; Start 04/25/18 at 21:00 Paricalcitol (Zemplar) 1 mcg DAILY PO Last administered on 04/26/18at 12:03; Start 04/26/18 at 09:00 Tramadol HCl (Ultram) 50 mg PRN Q4HRS PRN PO PAIN Last administered on at 04:53; Start 04/25/18 at 16:45 Glimepiride (Amaryl) 1 mg DAILY PO Last administered on 04/26/18at 09:16; Start 04/26/18 at 09:00 Atorvastatin Calcium (Lipitor) 40 mg QHS PO Last administered on 04/26/18at 20: 36; Start 04/25/18 at 21:00 Linagliptin (Tradjenta) 5 mg DAILY PO Last administered on 04/26/18at 09:17; Start 04/26/18 at 09:00 Insulin Human Lispro (HumaLOG) 5 units 1X ONCE SQ Last administered on at 22:33; Start 04/25/18 at 22:30; Stop 04/25/18 at 22:45; Status DC Enoxaparin Sodium (Lovenox 60mg Syringe) 60 mg 1X ONCE SQ Last administered on 04/26/18at 18:06; Start 04/26/18 at 16:00; Stop 04/26/18 at 16:01; Status DC Insulin Human Lispro (HumaLOG) 0-9 UNITS QIDACHS SQ Last administered on at 21:25; Start 04/26/18 at 21:00 Active Scripts Active Reported Zemplar (Paricalcitol) 1 Mcg Capsule 1 Mcg PO DAILY Lantus Solostar (Insulin Glargine,Hum.rec.anlog) 100 Unit/1 Ml Insuln.pen 20 Unit SQ QHS Carvedilol 6.25 Mg Tablet 6.25 Mg PO BIDWMEALS Cetirizine Hcl 10 Mg Tablet 10 Mg PO DAILY Amlodipine Besylate 5 Mg Tablet 5 Mg PO DAILY Tramadol Hcl 50 Mg Tablet 50 Mg PO Q4HRS PRN Glimepiride 1 Mg Tablet 1 Mg PO DAILY Januvia (Sitagliptin Phosphate) 50 Mg Tablet 50 Mg PO DAILY Crestor (Rosuvastatin Calcium) 20 Mg Tablet 20 Mg PO HS Vitals/I & O Vital Sign - Last 24 Hours 1104/26/18 04/26/18 04/26/18 09:16 09:17 11:20 14:52 Temp 99.0 98.8 99.0 98.8 Pulse 80 80 88 85 Resp 18 18 B/P (MAP) 106/65 (79) 107/62 (77) Pulse Ox 96 95 O2 Delivery Room Air Room Air 04/26/18 04/26/18 04/26/18 04/26/18 18:06 19:56 20:00 23:16 Temp 98.4 99.0 98.4 99.0 Pulse 90 93 81 Resp 20 20 B/P (MAP) 103/62 (76) 111/59 (76) Pulse Ox 95 96 O2 Delivery Room Air Room Air Room Air 04/27/18 04/27/18 03:00 07:25 Temp 97.4 98.4 97.4 98.4 Pulse 85 85 Resp 20 18 B/P (MAP) 140/74 (96) 123/80 (94) Pulse Ox 98 98 O2 Delivery Room Air Room Air Intake and Output 04/26/18 04/26/18 04/27/18 15:00 23:00 07:00 Intake Total 890 ml 540 ml Output Total 200 ml 450 ml Balance 690 ml 90 ml SANTY HILL MD Apr 27, 2018 08:33
[2018-04-27] MEDS: CETIRIZINE HCL 10 MG TABLET. PO SCH (08:46)
[2018-04-27] MEDS: amLODIPine BESYLATE 5 MG TABLET PO SCH (08:46)
[2018-04-27] MEDS: CARVEDILOL 6.25 MG TABLET. PO SCH ×2 (08:46→17:37)
[2018-04-27] MEDS: ASPIRIN ENTERIC COATED 81 MG TABLET.DR. PO SCH (08:47)
[2018-04-27] MEDS: GLIMEPIRIDE 2 MG TABLET. PO SCH (08:47)
[2018-04-27] MEDS: LINAGLIPTIN 5 MG TABLET PO SCH (08:47)
[2018-04-27] MEDS: PARICALCITOL 1 MCG CAPSULE PO SCH (08:48)
[2018-04-27] MEDS: INSULIN LISPRO 300 UNITS/3 ML INSULN.PEN. SQ SCH ×4 (08:54→21:47)
--- NOTE | 2018-04-27 09:17 | CONS ---
DATE OF CONSULTATION: ATTENDING PHYSICIAN: Dr. Krueger. REASON FOR CONSULTATION: Abnormal CT chest. HISTORY OF PRESENT ILLNESS: The patient is a 72-year-old female who has uncontrolled type 2 diabetes, hypertension, dyslipidemia and no history of tobacco use. She presented to the hospital, complaining of chest pain, substernal, 10/02, that started yesterday. The patient's troponin level was also elevated at 1.98 and maximum was 2.46. She is seen by Cardiology and cardiac catheterization is planned for Sunday. The patient states that she has chronic mild exertional dyspnea for many years with some slight progression. Denies any chronic cough. No postnasal drainage. No fever, no chills, no headaches, no nausea or vomiting or diarrhea. She has never lived in a farm. Her CT chest was reviewed by me. There is some parenchymal scarring, mostly in the left base. Her CT chest in 04/2015 did not have any significant findings. There were tiny nodules reported by radiologist, 3 mm in the right upper lobe, and another 3 mm in the left upper lobe which is not of much clinical significance. I have been asked to see her for further evaluation. PAST MEDICAL HISTORY: History of type 2 diabetes, dyslipidemia, hypertension, neuropathy. No significant history of tobacco use or asthma. PAST SURGICAL HISTORY: No recent surgery. ALLERGIES: None. CURRENT MEDICATIONS: Reviewed, as listed in the [facility]. REVIEW OF SYSTEMS: A 12-point system obtained. Pertinent positives discussed in my history of present illness, otherwise noncontributory. All systems that were negative were reviewed as well. SOCIAL HISTORY: Nonsmoker. FAMILY HISTORY: Noncontributory to lungs. PHYSICAL EXAMINATION: VITAL SIGNS: Reviewed, pulse ox 98% on room air, afebrile. HEENT: Sclerae nonicteric. NECK: Supple. LUNGS: With fine crackles at one third of the bases of the lungs. CARDIOVASCULAR: Regular rate. ABDOMEN: Soft. EXTREMITIES: With no pitting edema. LABORATORY DATA: Labs were reviewed. BUN 28, creatinine 2.2. Troponin was at 2.4, it is down to 1.98. IMPRESSION: 1. Substernal chest pain with increased troponin level, suspecting non-ST myocardial infarction. Cardiac catheterization is planned for Sunday. 2. Abnormal CT chest with mild parenchymal scarring in the left base. However, she has chronic mild exertional dyspnea for a few years and on exam has fine, dry crackles one third at both the bases. Clinically, suspect that she may have interstitial lung disease or fibrosis. We will do a high resolution CT chest for further evaluation. 3. No significant history of tobacco use. No history of asthma. RECOMMENDATIONS: 1. Follow Cardiology's recommendations and cardiac catheterization results on Sunday. 2. We will obtain high resolution CT chest for more detailed information of the lung parenchyma. 3. PFTs as an outpatient. 4. P.r.n. bronchodilators. 5. We will follow with you along. Discussed with RN. VIANEY YUSUF MD DR: CARMEN/lucie JOB#: [id number] / [id number]
[2018-04-27 10:48] VITALS: BP 145/78
--- NOTE | 2018-04-27 11:37 | PDOC ---
Renal-Progress Notes Subjective Notes Notes NONE History of Present Illness Hx of present illness STABLE Vitals Vitals Vital Signs Date Time Temp Pulse Resp B/P (MAP) Pulse Ox O2 Delivery O2 Flow Rate FiO2 04/27/18 10:48 98.0 88 18 145/78 (100) 98 Room Air 98.0 Weight Weight [ ] I.O. Intake and Output Intake and Output 04/27/18 07:00 Intake Total 1430 ml Output Total 650 ml Balance 780 ml Intake Oral 1430 ml Output Urine Total 650 ml # Voids 3 # Bowel Movements 1 Labs Labs Laboratory Tests Test 04/26/18 17:00 04/26/18 20:29 04/27/18 03:00 04/27/18 04:00 Glucose (Fingerstick) 309 mg/dL (70-99) 315 mg/dL (70-99) Magnesium Level 1.9 mg/dL (1.8-2.4) White Blood Count 10.7 x10^3/uL (4.0-11.0) Red Blood Count 4.27 x10^6/uL (3.50-5.40) Hemoglobin 11.9 g/dL (12.0-15.5) Hematocrit 36.0 % (36.0-47.0) Mean Corpuscular Volume 84 fL (79-100) Mean Corpuscular Hemoglobin 28 pg (25-35) Mean Corpuscular Hemoglobin Concent 33 g/dL (31-37) Red Cell Distribution Width 14.6 % (11.5-14.5) Platelet Count 221 x10^3/uL (140-400) Neutrophils (%) (Auto) 66 % (31-73) Lymphocytes (%) (Auto) 25 % (24-48) Monocytes (%) (Auto) 7 % (0-9) Eosinophils (%) (Auto) 2 % (0-3) Basophils (%) (Auto) 0 % (0-3) Neutrophils # (Auto) 7.1 x10^3uL (1.8-7.7) Lymphocytes # (Auto) 2.7 x10^3/uL (1.0-4.8) Monocytes # (Auto) 0.8 x10^3/uL (0.0-1.1) Eosinophils # (Auto) 0.2 x10^3/uL (0.0-0.7) Basophils # (Auto) 0.0 x10^3/uL (0.0-0.2) Sodium Level 138 mmol/L (136-145) Potassium Level 3.9 mmol/L (3.5-5.1) Chloride Level 100 mmol/L (98-107) Carbon Dioxide Level 26 mmol/L (21-32) Anion Gap 12 (6-14) Blood Urea Nitrogen 29 mg/dL (7-20) Creatinine 1.9 mg/dL (0.6-1.0) Estimated GFR (Cockcroft-Gault) 26.1 Glucose Level 297 mg/dL (70-99) Calcium Level 9.0 mg/dL (8.5-10.1) Test 04/27/18 07:50 Glucose (Fingerstick) 285 mg/dL (70-99) Micro Micro Microbiology 04/25/18 Urine Culture - Final, Complete 04/25/18 Urine Culture Result 1 (ELVIS) - Final, Complete Review of Systems Constitutional: yes: malaise, weakness, alert, oriented Ears/Nose/Throat: Yes: no symptom reported Eyes: Yes: no symptom reported Pulmonary: Yes no symptom reported Cardiovascular: Yes chest pain Gastrointestional: Yes: no symptom reported Genitourinary: Yes: no symptom reported Musculoskeletal: Yes: no symptom reported Skin: Yes no symptom reported Psychiatric/Neurological: Yes: no symptom reported Endocrine: Yes: no symptom reported Physical Exam General Appearance: no apparent distress Skin: warm Respiratory: decreased breath sounds Heart: S1S2 Abdomen: soft, bowel sounds present Genitourinary: bladder flat Extremities: pulses present Neurology: alert, oriented, follow commands Musculoskeletal: Osteoarthritis Assessment Assessment IMP DEHYDRATION-BETTER AFTER IVF'S HYPERGLYCEMIA DM II CKD STAGE 3-CR AT BASELINE CHEST PAIN PLAN CARDIOLOGY EVAL WILL FOLLOW GARRETT VALDEZ MD Apr 27, 2018 11:37
--- NOTE | 2018-04-27 12:32 | RAD ---
Examination: CT high-resolution chest without contrast HISTORY: History of interstitial lung disease, fibrosis COMPARISON: 04/26/2018 TECHNIQUE: Axial CT chest images were performed in high-resolution in inspiration, expiration. Coronal and sagittal reformats are performed Exposure: One or more of the following individualized dose reduction techniques were utilized for this examination: 1. Automated exposure control 2. Adjustment of the mA and/or kV according to patient size 3. Use of iterative reconstruction technique FINDINGS: The central airways are patent. Heart size grossly appears unremarkable. Coronary artery calcifications identified. No radiologically significant mediastinal lymphadenopathy. No evidence of pleural effusion or pneumothorax identified. 3 mm nodule identified in the right upper lobe and in the left upper lobe of the lungs similar to prior exam. Minimal prominent interstitial lung markings in the bibasilar lungs probably scarring or minimal fibrosis. No evidence of honeycombing changes identified. No significant traction bronchiectasis identified. The visualized liver demonstrates diffuse patchy low-attenuation in the liver likely hepatic steatosis. The visualized spleen, adrenals grossly appears unremarkable. The gallbladder is mildly distended. Somewhat atrophic appearing bilateral kidneys. Mild degenerative changes thoracic spine. IMPRESSION: 1. Minimal bibasilar prominent interstitial lung markings could be scarring or fibrosis. No evidence of honeycombing or traction bronchiectasis. 2. Stable pulmonary nodules. 3. Hepatic steatosis. Electronically signed by: Mansoor Marinelli MD (04/27/2018 12:29 PM) [facility]
[2018-04-27] MEDS: HEPARIN 25,000UTS/500ML PREMIX 500 ML IV PRN (12:42)
[2018-04-27] MEDS: NITROGLYCERIN SUBLINGUAL 0.4 MG BOTTLE OF 25. SL PRN ×2 (13:01→13:28)
--- NOTE | 2018-04-27 13:32 | PDOC ---
PROGRESS NOTES Subjective Subjective Patient had few episodes of chest pain overnight. Presently chest pain-free. Objective Objective Vital Signs Date Time Temp Pulse Resp B/P (MAP) Pulse Ox O2 Delivery O2 Flow Rate FiO2 04/27/18 13:28 88 145/78 04/27/18 10:48 98.0 18 98 Room Air 98.0 Intake and Output 04/27/18 07:00 Intake Total 1430 ml Output Total 650 ml Balance 780 ml Intake Oral 1430 ml Output Urine Total 650 ml # Voids 3 # Bowel Movements 1 Physical Exam Abdomen: Soft, No tenderness Heart: Regular rate (SR), Normal S1, Normal S2, Other (2/6 systolic murmur to LLS border) Extremities: No cyanosis, Other (trace LE edema) General: Oriented X3, Cooperative, mild distress HEENT: Atraumatic, Mucous membr. moist/pink Lungs: Other (basilar crackles) MUSCULOSKELETAL: Osteoarthritic changes both hands Neuro: Cranial nerves 3-12 NL Psych/Mental Status: Mental status NL, Mood NL Skin: No breakdown, No significant lesion Assessment Assessment 1. NSTEMI; Troponin peaked at 2.4, typical features. EF and WM nml. Patient had a few more episodes of chest pain overnight. Start heparin infusion per protocol. If she has further recurrences, we will consider cardiac catheterization over the weekend. She is presently scheduled for cath Sunday. 2. Uncontrolled DM2: 500s upon admission. Per PCP 3. Acute on chronic renal insufficiency: per nephrology 4. HLP: Statins 5. HTN: better controlled Plan Plan of Care Problems Medical Problems: (1) Chronic renal failure Status: Acute (2) Hyperglycemia Status: Acute (3) NSTEMI (non-ST elevated myocardial infarction) Status: Acute Comment Review of Relevant I have reviewed the following items reena (where applicable) has been applied. Labs Laboratory Tests Test 04/26/18 17:00 04/26/18 20:29 04/27/18 03:00 04/27/18 04:00 Glucose (Fingerstick) 309 mg/dL (70-99) 315 mg/dL (70-99) Magnesium Level 1.9 mg/dL (1.8-2.4) White Blood Count 10.7 x10^3/uL (4.0-11.0) Red Blood Count 4.27 x10^6/uL (3.50-5.40) Hemoglobin 11.9 g/dL (12.0-15.5) Hematocrit 36.0 % (36.0-47.0) Mean Corpuscular Volume 84 fL (79-100) Mean Corpuscular Hemoglobin 28 pg (25-35) Mean Corpuscular Hemoglobin Concent 33 g/dL (31-37) Red Cell Distribution Width 14.6 % (11.5-14.5) Platelet Count 221 x10^3/uL (140-400) Neutrophils (%) (Auto) 66 % (31-73) Lymphocytes (%) (Auto) 25 % (24-48) Monocytes (%) (Auto) 7 % (0-9) Eosinophils (%) (Auto) 2 % (0-3) Basophils (%) (Auto) 0 % (0-3) Neutrophils # (Auto) 7.1 x10^3uL (1.8-7.7) Lymphocytes # (Auto) 2.7 x10^3/uL (1.0-4.8) Monocytes # (Auto) 0.8 x10^3/uL (0.0-1.1) Eosinophils # (Auto) 0.2 x10^3/uL (0.0-0.7) Basophils # (Auto) 0.0 x10^3/uL (0.0-0.2) Sodium Level 138 mmol/L (136-145) Potassium Level 3.9 mmol/L (3.5-5.1) Chloride Level 100 mmol/L (98-107) Carbon Dioxide Level 26 mmol/L (21-32) Anion Gap 12 (6-14) Blood Urea Nitrogen 29 mg/dL (7-20) Creatinine 1.9 mg/dL (0.6-1.0) Estimated GFR (Cockcroft-Gault) 26.1 Glucose Level 297 mg/dL (70-99) Calcium Level 9.0 mg/dL (8.5-10.1) Test 04/27/18 07:50 04/27/18 11:43 Glucose (Fingerstick) 285 mg/dL (70-99) 292 mg/dL (70-99) Microbiology 04/25/18 Urine Culture - Final, Complete 04/25/18 Urine Culture Result 1 (ELVIS) - Final, Complete Medications Current Medications Enoxaparin Sodium (Lovenox 60mg Syringe) 60 mg 1X ONCE SQ Last administered on 04/26/18at 18:06; Start 04/26/18 at 16:00; Stop 04/26/18 at 16:01; Status DC Heparin Sodium/ Dextrose 500 ml @ 0 mls/hr CONT PRN IV SEE I/O RECORD Last administered on 04/27/18at 12:42; Start 04/27/18 at 11:30 Insulin Human Lispro (HumaLOG) 0-9 UNITS QIDACHS SQ Last administered on at 12:43; Start 04/26/18 at 21:00 Nitroglycerin (Nitrostat) 0.4 mg PRN Q5MIN PRN SL CHEST PAIN Last administered on 04/27/18at 13:28; Start 04/27/18 at 13:00 Vitals/I & O Vital Sign - Last 24 Hours 04/26/18 04/26/18 04/26/18 04/26/18 14:52 18:06 19:56 20:00 Temp 98.8 98.4 98.8 98.4 Pulse 85 90 93 Resp 18 20 B/P (MAP) 107/62 (77) 103/62 (76) Pulse Ox 95 95 O2 Delivery Room Air Room Air Room Air 04/26/18 04/27/18 04/27/18 04/27/18 23:16 03:00 07:25 08:00 Temp 99.0 97.4 98.4 99.0 97.4 98.4 Pulse 81 85 85 Resp 20 20 18 B/P (MAP) 111/59 (76) 140/74 (96) 123/80 (94) Pulse Ox 96 98 98 O2 Delivery Room Air Room Air Room Air Room Air 04/27/18 04/27/18 04/27/18 04/27/18 08:46 08:46 10:48 13:01 Temp 98.0 98.0 Pulse 85 85 88 88 Resp 18 B/P (MAP) 123/80 123/80 145/78 (100) 145/78 Pulse Ox 98 O2 Delivery Room Air 04/27/18 13:28 Pulse 88 B/P (MAP) 145/78 Intake and Output 04/26/18 04/26/18 04/27/18 15:00 23:00 07:00 Intake Total 890 ml 540 ml Output Total 200 ml 450 ml Balance 690 ml 90 ml ROSIBEL RUSSO MD Apr 27, 2018 13:32
[2018-04-27 14:40] VITALS: BP 123/71
[2018-04-27 15:21] LABS: PROTHROMBIN TIME PATIENT 13.3 SEC (11.7-14.0)
[2018-04-27 19:05] VITALS: BP 124/69
[2018-04-27] MEDS: ATORVASTATIN CALCIUM 40 MG TABLET. PO SCH (21:16)
[2018-04-27] MEDS: INSULIN GLARGINE 300 UNITS/3 ML INSULN.PEN. SQ SCH (21:46)
[2018-04-27 23:20] VITALS: BP 117/69
[2018-04-28 03:09] VITALS: BP 140/77
--- NOTE | 2018-04-28 07:22 | PDOC ---
PROGRESS NOTES Chief Complaint Chief Complaint Chest pain: unstable angina Uncontrolled DM2 SEJAL H/o Hyperlipidemia H/o HTN History of Present Illness History of Present Illness Pt seen and examined. Pt is very pleasant and sitting in bedside chair and in some distress. this morning walked to the restroom, experienced worse chest pain radiating into her left arm and back, more short of breath again today. Her blood sugar has been up despite increased coverage yesterday DW RN A/P: Chest pain: unstable angina - heparin GTT, was given therapeutic lovenox yesterday, however has SEJAL. Likely for cardiac cath tomorrow, have d/w Cardiology Uncontrolled DM2 - still > 200mg/dL on every check, will give 10u lispro with meals and glargine 25u QHS, cont sliding scale with meals in addition to mealtime SEJAL - likely vasomotor, given IVF, will monitor H/o Hyperlipidemia H/o HTN FEN - ADA cardiac PPX - heparin FULL CODE cont inpatient for at least additional 2 midnights, has unstable angina Vitals Vitals Vital Signs Date Time Temp Pulse Resp B/P (MAP) Pulse Ox O2 Delivery O2 Flow Rate FiO2 04/28/18 03:09 98.4 80 21 140/77 (98) 98 Room Air 98.4 Physical Exam General: Oriented X3, Cooperative, mild distress Heart: Regular rate (SR), Normal S1, Normal S2, Other (2/6 systolic murmur to LLS border) Abdomen: Soft, No tenderness Extremities: No cyanosis, Other (trace LE edema) Skin: No breakdown, No significant lesion Labs LABS Laboratory Tests Test 04/27/18 07:50 04/27/18 11:43 04/27/18 15:00 04/27/18 16:58 Glucose (Fingerstick) 285 mg/dL (70-99) 292 mg/dL (70-99) 260 mg/dL (70-99) Prothrombin Time 13.3 SEC (11.7-14.0) Prothromb Time International Ratio 1.1 (0.8-1.1) Test 04/27/18 17:55 04/27/18 21:01 04/28/18 00:25 Heparin Anti-Xa Act, Unfractionated 0.39 IU/mL (0.30-0.70) 0.33 IU/mL (0.30-0.70) Glucose (Fingerstick) 235 mg/dL (70-99) Assessment and Plan Assessmemt and Plan Problems Medical Problems: (1) Chronic renal failure Status: Acute (2) Hyperglycemia Status: Acute (3) NSTEMI (non-ST elevated myocardial infarction) Status: Acute Comment Review of Relevant I have reviewed the following items reena (where applicable) has been applied. Labs Laboratory Tests Test 04/26/18 07:29 04/26/18 09:00 04/26/18 11:34 04/26/18 17:00 Glucose (Fingerstick) 287 mg/dL (70-99) 314 mg/dL (70-99) 309 mg/dL (70-99) White Blood Count 11.3 x10^3/uL (4.0-11.0) Red Blood Count 4.60 x10^6/uL (3.50-5.40) Hemoglobin 12.5 g/dL (12.0-15.5) Hematocrit 38.5 % (36.0-47.0) Mean Corpuscular Volume 84 fL (79-100) Mean Corpuscular Hemoglobin 27 pg (25-35) Mean Corpuscular Hemoglobin Concent 33 g/dL (31-37) Red Cell Distribution Width 14.4 % (11.5-14.5) Platelet Count 238 x10^3/uL (140-400) Neutrophils (%) (Auto) 70 % (31-73) Lymphocytes (%) (Auto) 23 % (24-48) Monocytes (%) (Auto) 5 % (0-9) Eosinophils (%) (Auto) 1 % (0-3) Basophils (%) (Auto) 0 % (0-3) Neutrophils # (Auto) 8.0 x10^3uL (1.8-7.7) Lymphocytes # (Auto) 2.6 x10^3/uL (1.0-4.8) Monocytes # (Auto) 0.6 x10^3/uL (0.0-1.1) Eosinophils # (Auto) 0.1 x10^3/uL (0.0-0.7) Basophils # (Auto) 0.0 x10^3/uL (0.0-0.2) Test 04/26/18 20:29 04/27/18 03:00 04/27/18 04:00 04/27/18 07:50 Glucose (Fingerstick) 315 mg/dL (70-99) 285 mg/dL (70-99) Magnesium Level 1.9 mg/dL (1.8-2.4) White Blood Count 10.7 x10^3/uL (4.0-11.0) Red Blood Count 4.27 x10^6/uL (3.50-5.40) Hemoglobin 11.9 g/dL (12.0-15.5) Hematocrit 36.0 % (36.0-47.0) Mean Corpuscular Volume 84 fL (79-100) Mean Corpuscular Hemoglobin 28 pg (25-35) Mean Corpuscular Hemoglobin Concent 33 g/dL (31-37) Red Cell Distribution Width 14.6 % (11.5-14.5) Platelet Count 221 x10^3/uL (140-400) Neutrophils (%) (Auto) 66 % (31-73) Lymphocytes (%) (Auto) 25 % (24-48) Monocytes (%) (Auto) 7 % (0-9) Eosinophils (%) (Auto) 2 % (0-3) Basophils (%) (Auto) 0 % (0-3) Neutrophils # (Auto) 7.1 x10^3uL (1.8-7.7) Lymphocytes # (Auto) 2.7 x10^3/uL (1.0-4.8) Monocytes # (Auto) 0.8 x10^3/uL (0.0-1.1) Eosinophils # (Auto) 0.2 x10^3/uL (0.0-0.7) Basophils # (Auto) 0.0 x10^3/uL (0.0-0.2) Sodium Level 138 mmol/L (136-145) Potassium Level 3.9 mmol/L (3.5-5.1) Chloride Level 100 mmol/L (98-107) Carbon Dioxide Level 26 mmol/L (21-32) Anion Gap 12 (6-14) Blood Urea Nitrogen 29 mg/dL (7-20) Creatinine 1.9 mg/dL (0.6-1.0) Estimated GFR (Cockcroft-Gault) 26.1 Glucose Level 297 mg/dL (70-99) Calcium Level 9.0 mg/dL (8.5-10.1) Test 04/27/18 11:43 04/27/18 15:00 04/27/18 16:58 04/27/18 17:55 Glucose (Fingerstick) 292 mg/dL (70-99) 260 mg/dL (70-99) Prothrombin Time 13.3 SEC (11.7-14.0) Prothromb Time International Ratio 1.1 (0.8-1.1) Heparin Anti-Xa Act, Unfractionated 0.39 IU/mL (0.30-0.70) Test 04/27/18 21:01 04/28/18 00:25 Glucose (Fingerstick) 235 mg/dL (70-99) Heparin Anti-Xa Act, Unfractionated 0.33 IU/mL (0.30-0.70) Laboratory Tests Test 04/27/18 07:50 04/27/18 11:43 04/27/18 15:00 04/27/18 16:58 Glucose (Fingerstick) 285 mg/dL (70-99) 292 mg/dL (70-99) 260 mg/dL (70-99) Prothrombin Time 13.3 SEC (11.7-14.0) Prothromb Time International Ratio 1.1 (0.8-1.1) Test 04/27/18 17:55 04/27/18 21:01 04/28/18 00:25 Heparin Anti-Xa Act, Unfractionated 0.39 IU/mL (0.30-0.70) 0.33 IU/mL (0.30-0.70) Glucose (Fingerstick) 235 mg/dL (70-99) Microbiology 04/25/18 Urine Culture - Final, Complete 04/25/18 Urine Culture Result 1 (ELVIS) - Final, Complete Medications Current Medications Morphine Sulfate (Morphine Sulfate) 2 mg 1X ONCE IV Last administered on at 09:24; Start 04/25/18 at 09:00; Stop 04/25/18 at 09:01; Status DC Insulin Human Regular (HumuLIN R VIAL) 8 unit 1X ONCE IV Last administered on 04/25/18at 10:51; Start 04/25/18 at 10:30; Stop 04/25/18 at 10:31; Status DC Ondansetron HCl (Zofran) 4 mg PRN Q8HRS PRN IV NAUSEA/VOMITING Last administered on 04/25/18at 17:15; Start 04/25/18 at 10:30; Stop 04/26/18 at 10:29 ; Status DC Morphine Sulfate (Morphine Sulfate) 4 mg PRN Q2HR PRN IV PAIN; Start 04/25/18 at 10:30; Stop 04/26/18 at 10:29; Status DC Acetaminophen (Tylenol) 650 mg PRN Q4HRS PRN PO FEVER; Start 04/25/18 at 10:30 ; Stop 04/26/18 at 10:29; Status DC Nitroglycerin (Nitrostat) 0.4 mg PRN Q5MIN PRN SL CHEST PAIN Last administered on 04/25/18at 10:55; Start 04/25/18 at 10:30; Stop 04/26/18 at 10:29; Status DC Dextrose (Dextrose 50%-Water Syringe) 12.5 gm PRN Q15MIN PRN IV SEE COMMENTS; Start 04/25/18 at 10:30 Insulin Human Lispro (HumaLOG) 12 units 1X ONCE SQ Last administered on at 12:46; Start 04/25/18 at 12:15; Stop 04/25/18 at 12:17; Status DC Insulin Human Lispro (HumaLOG) 0-9 UNITS TIDWMEALS SQ Last administered on 04/26at 18:18; Start 04/25/18 at 17:00; Stop 04/26/18 at 20:02; Status DC Dextrose (Dextrose 50%-Water Syringe) 12.5 gm PRN Q15MIN PRN IV SEE COMMENTS; Start 04/25/18 at 12:15; Status UNV Sodium Chloride 1,000 ml @ 75 mls/hr 1X ONCE IV Last administered on at 16:14; Start 04/25/18 at 12:45; Stop 04/26/18 at 02:04; Status DC Labetalol HCl (Normodyne Iv Push) 20 mg PRN Q2HR PRN IVP HYPERTENSION, SEE COMMENTS; Start 04/25/18 at 12:45 Aspirin (Ecotrin) 81 mg DAILYWBKFT PO Last administered on 04/27/18at 08:47; Start 04/26/18 at 08:00 Amlodipine Besylate (Norvasc) 5 mg DAILY PO Last administered on 04/27/18 08: 46; Start 04/25/18 at 13:00 Carvedilol (Coreg) 6.25 mg BIDWMEALS PO Last administered on 04/27/18 17:37; Start 04/25/18 at 17:00 Enoxaparin Sodium (Lovenox 60mg Syringe) 60 mg 1X ONCE SQ Last administered on 04/25/18 16:15; Start 04/25/18 at 13:00; Stop 04/25/18 at 13:02; Status DC Cetirizine HCl (ZyrTEC) 10 mg DAILY PO Last administered on 04/27/18 08:46; Start 04/26/18 at 09:00 Insulin Glargine (Lantus) 20 units QHS SQ Last administered on 04/26/18 21:25 ; Start 04/25/18 at 21:00; Stop 04/27/18 at 17:05; Status DC Paricalcitol (Zemplar) 1 mcg DAILY PO Last administered on 04/27/18 08:48; Start 04/26/18 at 09:00 Tramadol HCl (Ultram) 50 mg PRN Q4HRS PRN PO PAIN Last administered on 21:16; Start 04/25/18 at 16:45 Glimepiride (Amaryl) 1 mg DAILY PO Last administered on 04/27/18 08:47; Start 04/26/18 at 09:00 Atorvastatin Calcium (Lipitor) 40 mg QHS PO Last administered on 04/27/18 21: 16; Start 04/25/18 at 21:00 Linagliptin (Tradjenta) 5 mg DAILY PO Last administered on 04/27/18 08:47; Start 04/26/18 at 09:00 Insulin Human Lispro (HumaLOG) 5 units 1X ONCE SQ Last administered on at 22:33; Start 04/25/18 at 22:30; Stop 04/25/18 at 22:45; Status DC Enoxaparin Sodium (Lovenox 60mg Syringe) 60 mg 1X ONCE SQ Last administered on 04/26/18 18:06; Start 04/26/18 at 16:00; Stop 04/26/18 at 16:01; Status DC Insulin Human Lispro (HumaLOG) 0-9 UNITS QIDACHS SQ Last administered on at 21:47; Start 04/26/18 at 21:00 Heparin Sodium/ Dextrose 500 ml @ 0 mls/hr CONT PRN IV SEE I/O RECORD Last administered on 04/27/18at 12:42; Start 04/27/18 at 11:30 Nitroglycerin (Nitrostat) 0.4 mg PRN Q5MIN PRN SL CHEST PAIN Last administered on 04/27/18at 13:28; Start 04/27/18 at 13:00 Insulin Glargine (Lantus) 25 units QHS SQ Last administered on 04/27/18at 21:46 ; Start 04/27/18 at 21:00 Insulin Human Lispro (HumaLOG) 5 units TIDAC SQ ; Start 04/28/18 at 07:30 Active Scripts Active Reported Zemplar (Paricalcitol) 1 Mcg Capsule 1 Mcg PO DAILY Lantus Solostar (Insulin Glargine,Hum.rec.anlog) 100 Unit/1 Ml Insuln.pen 20 Unit SQ QHS Carvedilol 6.25 Mg Tablet 6.25 Mg PO BIDWMEALS Cetirizine Hcl 10 Mg Tablet 10 Mg PO DAILY Amlodipine Besylate 5 Mg Tablet 5 Mg PO DAILY Tramadol Hcl 50 Mg Tablet 50 Mg PO Q4HRS PRN Glimepiride 1 Mg Tablet 1 Mg PO DAILY Januvia (Sitagliptin Phosphate) 50 Mg Tablet 50 Mg PO DAILY Crestor (Rosuvastatin Calcium) 20 Mg Tablet 20 Mg PO HS Vitals/I & O Vital Sign - Last 24 Hours 04/27/18 04/27/18 04/27/18 04/27/18 07:25 08:00 08:46 08:46 Temp 98.4 98.4 Pulse 85 85 85 Resp 18 B/P (MAP) 123/80 (94) 123/80 123/80 Pulse Ox 98 O2 Delivery Room Air Room Air 04/27/18 04/27/18 04/27/18 04/27/18 10:48 13:01 13:28 14:40 Temp 98.0 98.5 98.0 98.5 Pulse 88 88 88 101 Resp 18 18 B/P (MAP) 145/78 (100) 145/78 145/78 123/71 (88) Pulse Ox 98 97 O2 Delivery Room Air Room Air 04/27/18 04/27/18 04/27/18 04/27/18 17:37 19:05 20:00 23:20 Temp 98.1 98.7 98.1 98.7 Pulse 101 89 85 Resp 20 20 B/P (MAP) 123/71 124/69 (87) 117/69 (85) Pulse Ox 98 98 O2 Delivery Room Air Room Air Room Air 04/28/18 03:09 Temp 98.4 98.4 Pulse 80 Resp 21 B/P (MAP) 140/77 (98) Pulse Ox 98 O2 Delivery Room Air Intake and Output 04/27/18 04/27/18 04/28/18 15:00 23:00 07:00 Intake Total 120 ml 740 ml 310 ml Output Total 800 ml 850 ml Balance 120 ml -60 ml -540 ml SANTY HILL MD Apr 28, 2018 07:21
[2018-04-28] MEDS ORDERED: INSULIN LISPRO 300 UNITS/3 ML INSULN.PEN. SQ SCH (07:30)
[2018-04-28 07:40] VITALS: BP 114/72
[2018-04-28 07:41] LABS: BASO % 0 % (0-3); EOS # 0.2 x10^3/uL (0.0-0.7); EOS % 2 % (0-3); HEMATOCRIT 37.9 % (36.0-47.0); HEMOGLOBIN 12.5 g/dL (12.0-15.5); LYMPH # 2.8 x10^3/uL (1.0-4.8); LYMPH % 24 % (24-48); MEAN CORPUSCULAR HEMOGLOBIN 28 pg (25-35); MEAN CORPUSCULAR HGB CONC 33 g/dL (31-37); MEAN CORPUSCULAR VOLUME 85 fL (79-100); MONO # 0.6 x10^3/uL (0.0-1.1); MONO % 6 % (0-9); NEUT # 7.9 x10^3uL (1.8-7.7); NEUT % 68 % (31-73); PLATELET COUNT 280 x10^3/uL (140-400); RED BLOOD COUNT 4.47 x10^6/uL (3.50-5.40); RED CELL DISTRIBUTION WIDTH 14.7 % (11.5-14.5); WHITE BLOOD COUNT 11.6 x10^3/uL (4.0-11.0)
[2018-04-28 08:06] LABS: CALCIUM 9.3 mg/dL (8.5-10.1); GFR 24.6; POTASSIUM 3.6 mmol/L (3.5-5.1)
[2018-04-28] MEDS: CETIRIZINE HCL 10 MG TABLET. PO SCH (08:38)
[2018-04-28] MEDS: ASPIRIN ENTERIC COATED 81 MG TABLET.DR. PO SCH (08:38)
[2018-04-28] MEDS: CARVEDILOL 6.25 MG TABLET. PO SCH ×2 (08:39→17:42)
[2018-04-28] MEDS: amLODIPine BESYLATE 5 MG TABLET PO SCH (08:39)
[2018-04-28] MEDS: INSULIN LISPRO 300 UNITS/3 ML INSULN.PEN. SQ SCH ×6 (08:40→21:00)
[2018-04-28] MEDS: GLIMEPIRIDE 2 MG TABLET. PO SCH (08:40)
[2018-04-28] MEDS: LINAGLIPTIN 5 MG TABLET PO SCH (08:41)
[2018-04-28] MEDS: PARICALCITOL 1 MCG CAPSULE PO SCH (08:41)
--- NOTE | 2018-04-28 10:15 | PDOC ---
Renal-Progress Notes Subjective Notes Notes STILL HAS OCC CHEST PAIN History of Present Illness Hx of present illness STABLE Vitals Vitals Vital Signs Date Time Temp Pulse Resp B/P (MAP) Pulse Ox O2 Delivery O2 Flow Rate FiO2 04/28/18 08:39 92 114/72 04/28/18 07:47 Room Air 04/28/18 07:40 99.0 18 97 99.0 Weight Weight [ ] I.O. Intake and Output Intake and Output 04/28/18 07:00 Intake Total 1170 ml Output Total 1650 ml Balance -480 ml Intake Oral 1170 ml Output Urine Total 1650 ml Labs Labs Laboratory Tests Test 04/27/18 11:43 04/27/18 15:00 04/27/18 16:58 04/27/18 17:55 Glucose (Fingerstick) 292 mg/dL (70-99) 260 mg/dL (70-99) Prothrombin Time 13.3 SEC (11.7-14.0) Prothromb Time International Ratio 1.1 (0.8-1.1) Heparin Anti-Xa Act, Unfractionated 0.39 IU/mL (0.30-0.70) Test 04/27/18 21:01 04/28/18 00:25 04/28/18 06:25 04/28/18 07:45 Glucose (Fingerstick) 235 mg/dL (70-99) 235 mg/dL (70-99) Heparin Anti-Xa Act, Unfractionated 0.33 IU/mL (0.30-0.70) 0.48 IU/mL (0.30-0.70) White Blood Count 11.6 x10^3/uL (4.0-11.0) Red Blood Count 4.47 x10^6/uL (3.50-5.40) Hemoglobin 12.5 g/dL (12.0-15.5) Hematocrit 37.9 % (36.0-47.0) Mean Corpuscular Volume 85 fL (79-100) Mean Corpuscular Hemoglobin 28 pg (25-35) Mean Corpuscular Hemoglobin Concent 33 g/dL (31-37) Red Cell Distribution Width 14.7 % (11.5-14.5) Platelet Count 280 x10^3/uL (140-400) Neutrophils (%) (Auto) 68 % (31-73) Lymphocytes (%) (Auto) 24 % (24-48) Monocytes (%) (Auto) 6 % (0-9) Eosinophils (%) (Auto) 2 % (0-3) Basophils (%) (Auto) 0 % (0-3) Neutrophils # (Auto) 7.9 x10^3uL (1.8-7.7) Lymphocytes # (Auto) 2.8 x10^3/uL (1.0-4.8) Monocytes # (Auto) 0.6 x10^3/uL (0.0-1.1) Eosinophils # (Auto) 0.2 x10^3/uL (0.0-0.7) Basophils # (Auto) 0.0 x10^3/uL (0.0-0.2) Sodium Level 139 mmol/L (136-145) Potassium Level 3.6 mmol/L (3.5-5.1) Chloride Level 101 mmol/L (98-107) Carbon Dioxide Level 27 mmol/L (21-32) Anion Gap 11 (6-14) Blood Urea Nitrogen 32 mg/dL (7-20) Creatinine 2.0 mg/dL (0.6-1.0) Estimated GFR (Cockcroft-Gault) 24.6 Glucose Level 241 mg/dL (70-99) Calcium Level 9.3 mg/dL (8.5-10.1) Micro Micro Microbiology 04/25/18 Urine Culture - Final, Complete 04/25/18 Urine Culture Result 1 (ELVIS) - Final, Complete Review of Systems Constitutional: yes: malaise, weakness, alert, oriented Ears/Nose/Throat: Yes: no symptom reported Eyes: Yes: no symptom reported Pulmonary: Yes no symptom reported Cardiovascular: Yes chest pain Gastrointestional: Yes: no symptom reported Genitourinary: Yes: no symptom reported Musculoskeletal: Yes: no symptom reported Skin: Yes no symptom reported Psychiatric/Neurological: Yes: no symptom reported Endocrine: Yes: no symptom reported Physical Exam General Appearance: no apparent distress Skin: warm Respiratory: decreased breath sounds Heart: S1S2 Abdomen: soft, bowel sounds present Genitourinary: bladder flat Extremities: pulses present Neurology: alert, oriented, follow commands Musculoskeletal: Osteoarthritis Assessment Assessment IMP DEHYDRATION-BETTER AFTER IVF'S HYPERGLYCEMIA DM II CKD STAGE 3-CR AT BASELINE OF ABOUT 2.0 CHEST PAIN PLAN CATH PENDING FOR TOMORROW START IVF'S LABS IN AM D/W PT RISK OF KAYDEN GARRETT VALDEZ MD Apr 28, 2018 10:15
[2018-04-28] MEDS: IV NORMAL SALINE 1000ML BAG 1,000 ML IV SCH ×2 (10:28→22:47)
--- NOTE | 2018-04-28 10:40 | PDOC ---
PROGRESS NOTES Subjective Subjective Patient had a few more episodes of chest pain overnight. Presently chest pain- free. Objective Objective Vital Signs Date Time Temp Pulse Resp B/P (MAP) Pulse Ox O2 Delivery O2 Flow Rate FiO2 04/28/18 08:39 92 114/72 04/28/18 07:47 Room Air 04/28/18 07:40 99.0 18 97 99.0 Intake and Output 04/28/18 07:00 Intake Total 1170 ml Output Total 1650 ml Balance -480 ml Intake Oral 1170 ml Output Urine Total 1650 ml Physical Exam Abdomen: Soft, No tenderness Heart: Regular rate (SR), Normal S1, Normal S2, Other (2/6 systolic murmur to LLS border) Extremities: No cyanosis, Other (trace LE edema) General: Oriented X3, Cooperative, mild distress HEENT: Atraumatic, Mucous membr. moist/pink Lungs: Other (basilar crackles) MUSCULOSKELETAL: Osteoarthritic changes both hands Neuro: Cranial nerves 3-12 NL Psych/Mental Status: Mental status NL, Mood NL Skin: No breakdown, No significant lesion Assessment Assessment 1. NSTEMI; Troponin peaked at 2.4, typical features. EF and WM nml. Patient had a few more episodes of chest pain overnight. Continue heparin infusion per protocol and plan for cardiac catheterization tomorrow. 2. Uncontrolled DM2: Treat per IM 3. Acute on chronic renal insufficiency: Improving. Treat per nephrology 4. HLP: Statins 5. HTN: better controlled Plan Plan of Care Problems Medical Problems: (1) Chronic renal failure Status: Acute (2) Hyperglycemia Status: Acute (3) NSTEMI (non-ST elevated myocardial infarction) Status: Acute Comment Review of Relevant I have reviewed the following items reena (where applicable) has been applied. Labs Laboratory Tests Test 04/27/18 11:43 04/27/18 15:00 04/27/18 16:58 04/27/18 17:55 Glucose (Fingerstick) 292 mg/dL (70-99) 260 mg/dL (70-99) Prothrombin Time 13.3 SEC (11.7-14.0) Prothromb Time International Ratio 1.1 (0.8-1.1) Heparin Anti-Xa Act, Unfractionated 0.39 IU/mL (0.30-0.70) Test 04/27/18 21:01 04/28/18 00:25 04/28/18 06:25 04/28/18 07:45 Glucose (Fingerstick) 235 mg/dL (70-99) 235 mg/dL (70-99) Heparin Anti-Xa Act, Unfractionated 0.33 IU/mL (0.30-0.70) 0.48 IU/mL (0.30-0.70) White Blood Count 11.6 x10^3/uL (4.0-11.0) Red Blood Count 4.47 x10^6/uL (3.50-5.40) Hemoglobin 12.5 g/dL (12.0-15.5) Hematocrit 37.9 % (36.0-47.0) Mean Corpuscular Volume 85 fL (79-100) Mean Corpuscular Hemoglobin 28 pg (25-35) Mean Corpuscular Hemoglobin Concent 33 g/dL (31-37) Red Cell Distribution Width 14.7 % (11.5-14.5) Platelet Count 280 x10^3/uL (140-400) Neutrophils (%) (Auto) 68 % (31-73) Lymphocytes (%) (Auto) 24 % (24-48) Monocytes (%) (Auto) 6 % (0-9) Eosinophils (%) (Auto) 2 % (0-3) Basophils (%) (Auto) 0 % (0-3) Neutrophils # (Auto) 7.9 x10^3uL (1.8-7.7) Lymphocytes # (Auto) 2.8 x10^3/uL (1.0-4.8) Monocytes # (Auto) 0.6 x10^3/uL (0.0-1.1) Eosinophils # (Auto) 0.2 x10^3/uL (0.0-0.7) Basophils # (Auto) 0.0 x10^3/uL (0.0-0.2) Sodium Level 139 mmol/L (136-145) Potassium Level 3.6 mmol/L (3.5-5.1) Chloride Level 101 mmol/L (98-107) Carbon Dioxide Level 27 mmol/L (21-32) Anion Gap 11 (6-14) Blood Urea Nitrogen 32 mg/dL (7-20) Creatinine 2.0 mg/dL (0.6-1.0) Estimated GFR (Cockcroft-Gault) 24.6 Glucose Level 241 mg/dL (70-99) Calcium Level 9.3 mg/dL (8.5-10.1) Microbiology 04/25/18 Urine Culture - Final, Complete 04/25/18 Urine Culture Result 1 (ELVIS) - Final, Complete Medications Current Medications Heparin Sodium/ Dextrose 500 ml @ 0 mls/hr CONT PRN IV SEE I/O RECORD Last administered on 04/27/18at 12:42; Start 04/27/18 at 11:30 Insulin Glargine (Lantus) 25 units QHS SQ Last administered on 04/27/18at 21:46 ; Start 04/27/18 at 21:00 Insulin Human Lispro (HumaLOG) 5 units TIDAC SQ Last administered on 04/28/18at 08:40; Start 04/28/18 at 07:30 Nitroglycerin (Nitrostat) 0.4 mg PRN Q5MIN PRN SL CHEST PAIN Last administered on 04/27/18at 13:28; Start 04/27/18 at 13:00 Sodium Chloride 1,000 ml @ 75 mls/hr [id number] IV Last administered on at 10:28; Start 04/28/18 at 10:15 Vitals/I & O Vital Sign - Last 24 Hours 04/27/18 04/27/18 04/27/18 04/27/18 10:48 13:01 13:28 14:40 Temp 98.0 98.5 98.0 98.5 Pulse 88 88 88 101 Resp 18 18 B/P (MAP) 145/78 (100) 145/78 145/78 123/71 (88) Pulse Ox 98 97 O2 Delivery Room Air Room Air 04/27/18 04/27/18 04/27/18 04/27/18 17:37 19:05 20:00 23:20 Temp 98.1 98.7 98.1 98.7 Pulse 101 89 85 Resp 20 20 B/P (MAP) 123/71 124/69 (87) 117/69 (85) Pulse Ox 98 98 O2 Delivery Room Air Room Air Room Air 04/28/18 04/28/18 04/28/18 04/28/18 03:09 07:40 07:47 08:39 Temp 98.4 99.0 98.4 99.0 Pulse 80 92 92 Resp 21 18 B/P (MAP) 140/77 (98) 114/72 (86) 114/72 Pulse Ox 98 97 O2 Delivery Room Air Room Air Room Air 04/28/18 08:39 Pulse 92 B/P (MAP) 114/72 Intake and Output 04/27/18 04/27/18 04/28/18 15:00 23:00 07:00 Intake Total 120 ml 740 ml 310 ml Output Total 800 ml 850 ml Balance 120 ml -60 ml -540 ml ROSIBEL RUSSO MD Apr 28, 2018 10:40
[2018-04-28 11:15] VITALS: BP 119/65
--- NOTE | 2018-04-28 13:22 | PDOC ---
PULMONARY PROGRESS NOTES Subjective c/o CP with exertion Vitals Vital Signs Date Time Temp Pulse Resp B/P (MAP) Pulse Ox O2 Delivery O2 Flow Rate FiO2 04/28/18 11:15 98.6 82 18 119/65 (83) 98 Room Air 98.6 General: Alert, No acute distress Lungs: Crackles (one third bases) Cardiovascular: S1 Abdomen: Soft Neuro Exam: Alert Extremities: No Edema Skin: Warm Labs Laboratory Tests Test 04/26/18 17:00 04/26/18 20:29 04/27/18 03:00 04/27/18 04:00 Glucose (Fingerstick) 309 mg/dL (70-99) 315 mg/dL (70-99) Magnesium Level 1.9 mg/dL (1.8-2.4) White Blood Count 10.7 x10^3/uL (4.0-11.0) Red Blood Count 4.27 x10^6/uL (3.50-5.40) Hemoglobin 11.9 g/dL (12.0-15.5) Hematocrit 36.0 % (36.0-47.0) Mean Corpuscular Volume 84 fL (79-100) Mean Corpuscular Hemoglobin 28 pg (25-35) Mean Corpuscular Hemoglobin Concent 33 g/dL (31-37) Red Cell Distribution Width 14.6 % (11.5-14.5) Platelet Count 221 x10^3/uL (140-400) Neutrophils (%) (Auto) 66 % (31-73) Lymphocytes (%) (Auto) 25 % (24-48) Monocytes (%) (Auto) 7 % (0-9) Eosinophils (%) (Auto) 2 % (0-3) Basophils (%) (Auto) 0 % (0-3) Neutrophils # (Auto) 7.1 x10^3uL (1.8-7.7) Lymphocytes # (Auto) 2.7 x10^3/uL (1.0-4.8) Monocytes # (Auto) 0.8 x10^3/uL (0.0-1.1) Eosinophils # (Auto) 0.2 x10^3/uL (0.0-0.7) Basophils # (Auto) 0.0 x10^3/uL (0.0-0.2) Sodium Level 138 mmol/L (136-145) Potassium Level 3.9 mmol/L (3.5-5.1) Chloride Level 100 mmol/L (98-107) Carbon Dioxide Level 26 mmol/L (21-32) Anion Gap 12 (6-14) Blood Urea Nitrogen 29 mg/dL (7-20) Creatinine 1.9 mg/dL (0.6-1.0) Estimated GFR (Cockcroft-Gault) 26.1 Glucose Level 297 mg/dL (70-99) Calcium Level 9.0 mg/dL (8.5-10.1) Test 04/27/18 07:50 04/27/18 11:43 04/27/18 15:00 04/27/18 16:58 Glucose (Fingerstick) 285 mg/dL (70-99) 292 mg/dL (70-99) 260 mg/dL (70-99) Prothrombin Time 13.3 SEC (11.7-14.0) Prothromb Time International Ratio 1.1 (0.8-1.1) Test 04/27/18 17:55 04/27/18 21:01 04/28/18 00:25 04/28/18 06:25 Heparin Anti-Xa Act, Unfractionated 0.39 IU/mL (0.30-0.70) 0.33 IU/mL (0.30-0.70) 0.48 IU/mL (0.30-0.70) Glucose (Fingerstick) 235 mg/dL (70-99) White Blood Count 11.6 x10^3/uL (4.0-11.0) Red Blood Count 4.47 x10^6/uL (3.50-5.40) Hemoglobin 12.5 g/dL (12.0-15.5) Hematocrit 37.9 % (36.0-47.0) Mean Corpuscular Volume 85 fL (79-100) Mean Corpuscular Hemoglobin 28 pg (25-35) Mean Corpuscular Hemoglobin Concent 33 g/dL (31-37) Red Cell Distribution Width 14.7 % (11.5-14.5) Platelet Count 280 x10^3/uL (140-400) Neutrophils (%) (Auto) 68 % (31-73) Lymphocytes (%) (Auto) 24 % (24-48) Monocytes (%) (Auto) 6 % (0-9) Eosinophils (%) (Auto) 2 % (0-3) Basophils (%) (Auto) 0 % (0-3) Neutrophils # (Auto) 7.9 x10^3uL (1.8-7.7) Lymphocytes # (Auto) 2.8 x10^3/uL (1.0-4.8) Monocytes # (Auto) 0.6 x10^3/uL (0.0-1.1) Eosinophils # (Auto) 0.2 x10^3/uL (0.0-0.7) Basophils # (Auto) 0.0 x10^3/uL (0.0-0.2) Sodium Level 139 mmol/L (136-145) Potassium Level 3.6 mmol/L (3.5-5.1) Chloride Level 101 mmol/L (98-107) Carbon Dioxide Level 27 mmol/L (21-32) Anion Gap 11 (6-14) Blood Urea Nitrogen 32 mg/dL (7-20) Creatinine 2.0 mg/dL (0.6-1.0) Estimated GFR (Cockcroft-Gault) 24.6 Glucose Level 241 mg/dL (70-99) Calcium Level 9.3 mg/dL (8.5-10.1) Test 04/28/18 07:45 04/28/18 11:08 Glucose (Fingerstick) 235 mg/dL (70-99) 288 mg/dL (70-99) Laboratory Tests Test 04/27/18 15:00 04/27/18 16:58 04/27/18 17:55 04/27/18 21:01 Prothrombin Time 13.3 SEC (11.7-14.0) Prothromb Time International Ratio 1.1 (0.8-1.1) Glucose (Fingerstick) 260 mg/dL (70-99) 235 mg/dL (70-99) Heparin Anti-Xa Act, Unfractionated 0.39 IU/mL (0.30-0.70) Test 04/28/18 00:25 04/28/18 06:25 04/28/18 07:45 04/28/18 11:08 Heparin Anti-Xa Act, Unfractionated 0.33 IU/mL (0.30-0.70) 0.48 IU/mL (0.30-0.70) White Blood Count 11.6 x10^3/uL (4.0-11.0) Red Blood Count 4.47 x10^6/uL (3.50-5.40) Hemoglobin 12.5 g/dL (12.0-15.5) Hematocrit 37.9 % (36.0-47.0) Mean Corpuscular Volume 85 fL (79-100) Mean Corpuscular Hemoglobin 28 pg (25-35) Mean Corpuscular Hemoglobin Concent 33 g/dL (31-37) Red Cell Distribution Width 14.7 % (11.5-14.5) Platelet Count 280 x10^3/uL (140-400) Neutrophils (%) (Auto) 68 % (31-73) Lymphocytes (%) (Auto) 24 % (24-48) Monocytes (%) (Auto) 6 % (0-9) Eosinophils (%) (Auto) 2 % (0-3) Basophils (%) (Auto) 0 % (0-3) Neutrophils # (Auto) 7.9 x10^3uL (1.8-7.7) Lymphocytes # (Auto) 2.8 x10^3/uL (1.0-4.8) Monocytes # (Auto) 0.6 x10^3/uL (0.0-1.1) Eosinophils # (Auto) 0.2 x10^3/uL (0.0-0.7) Basophils # (Auto) 0.0 x10^3/uL (0.0-0.2) Sodium Level 139 mmol/L (136-145) Potassium Level 3.6 mmol/L (3.5-5.1) Chloride Level 101 mmol/L (98-107) Carbon Dioxide Level 27 mmol/L (21-32) Anion Gap 11 (6-14) Blood Urea Nitrogen 32 mg/dL (7-20) Creatinine 2.0 mg/dL (0.6-1.0) Estimated GFR (Cockcroft-Gault) 24.6 Glucose Level 241 mg/dL (70-99) Calcium Level 9.3 mg/dL (8.5-10.1) Glucose (Fingerstick) 235 mg/dL (70-99) 288 mg/dL (70-99) Medications Active Scripts Medications Dose Route/Sig Max Daily Dose Days Date Category Zemplar (Paricalcitol) 1 Mcg Capsule 1 Mcg PO DAILY 04/25/18 Reported Lantus Solostar (Insulin Glargine,Hum.rec.anlog) 100 Unit/1 Ml Insuln.pen 20 Unit SQ QHS 04/25/18 Reported Carvedilol 6.25 Mg Tablet 6.25 Mg PO BIDWMEALS 04/25/18 Reported Cetirizine Hcl 10 Mg Tablet 10 Mg PO DAILY 04/25/18 Reported Amlodipine Besylate 5 Mg Tablet 5 Mg PO DAILY 04/25/18 Reported Tramadol Hcl 50 Mg Tablet 50 Mg PO Q4HRS PRN 04/25/18 Reported Glimepiride 1 Mg Tablet 1 Mg PO DAILY 04/25/18 Reported Januvia (Sitagliptin Phosphate) 50 Mg Tablet 50 Mg PO DAILY 04/25/18 Reported Crestor (Rosuvastatin Calcium) 20 Mg Tablet 20 Mg PO HS 04/25/18 Reported Comments HRCT CHEST 1. Minimal bibasilar prominent interstitial lung markings could be scarring or fibrosis. No evidence of honeycombing or traction bronchiectasis. 2. Stable pulmonary nodules. 3. Hepatic steatosis. Electronically signed by: Mansoor Marinelli MD (04/27/2018 12:29 PM) [facility] Impression . 1. Substernal chest pain with increased troponin level, NSTMI/ Cardiac catheterization is planned for Sunday. 2. Persistent crackles one third bases. High Res CT chest with mild interstitial scaring . no honeycombing . Clinical findings of crackles at bases out of proportion to radiographic finding. she has chronic mild exertional dyspnea for a few years .Clinically, suspect that she may have early pulmonary fibrosis. We will do connective tissue disease w/u as OP. 3. No significant history of tobacco use. No history of asthma. 4. CP with exertion/ No pulmonary HTN on echo. suspect unstable angina. If no CAD on cath, will do VQ scan Plan . 1. Follow Cardiology's recommendations and cardiac catheterization results on Sunday. 2. Connective tissue disease w/u as OP. 3. PFTs as an outpatient. 4. P.r.n. bronchodilators. 5. 6 min walk at ms Discussed with RN. VIANEY YUSUF MD Apr 28, 2018 13:22
[2018-04-28] MEDS ORDERED: MORPHINE SULFATE 2 MG/ML VIAL. IV PRN (13:45)
[2018-04-28 15:10] VITALS: BP 109/89
[2018-04-28 19:00] VITALS: BP 116/63
[2018-04-28] MEDS: INSULIN GLARGINE 300 UNITS/3 ML INSULN.PEN. SQ SCH (20:57)
[2018-04-28] MEDS: traMADol 50 MG TABLET PO PRN (21:01)
[2018-04-28] MEDS: ATORVASTATIN CALCIUM 40 MG TABLET. PO SCH (21:01)
[2018-04-28] MEDS: ACETAMINOPHEN 325 MG TABLET. PO PRN (22:28)
[2018-04-28] MEDS: HEPARIN 25,000UTS/500ML PREMIX 500 ML IV PRN (22:32)
[2018-04-28 23:00] VITALS: BP 103/60
[2018-04-29] VITALS (9 sets, daily range): BP systolic 94–142; BP diastolic 48–65
[2018-04-29] MEDS: traMADol 50 MG TABLET PO PRN ×4 (01:14→22:04)
[2018-04-29 05:08] LABS: BASO # 0.1 x10^3/uL (0.0-0.2); BASO % 1 % (0-3); EOS # 0.2 x10^3/uL (0.0-0.7); EOS % 2 % (0-3); HEMATOCRIT 33.1 % (36.0-47.0); HEMOGLOBIN 11.1 g/dL (12.0-15.5); LYMPH # 2.8 x10^3/uL (1.0-4.8); LYMPH % 28 % (24-48); MEAN CORPUSCULAR HEMOGLOBIN 28 pg (25-35); MEAN CORPUSCULAR HGB CONC 33 g/dL (31-37); MEAN CORPUSCULAR VOLUME 85 fL (79-100); MONO # 0.5 x10^3/uL (0.0-1.1); MONO % 5 % (0-9); NEUT # 6.6 x10^3uL (1.8-7.7); NEUT % 64 % (31-73); PLATELET COUNT 220 x10^3/uL (140-400); RED BLOOD COUNT 3.89 x10^6/uL (3.50-5.40); RED CELL DISTRIBUTION WIDTH 14.7 % (11.5-14.5); WHITE BLOOD COUNT 10.3 x10^3/uL (4.0-11.0)
[2018-04-29 05:27] LABS: CALCIUM 8.5 mg/dL (8.5-10.1); CREATININE 1.9 mg/dL (0.6-1.0); GFR 26.1; POTASSIUM 4.3 mmol/L (3.5-5.1)
[2018-04-29] MEDS: INSULIN LISPRO 300 UNITS/3 ML INSULN.PEN. SQ SCH ×7 (07:30→21:00)
[2018-04-29] MEDS ORDERED: IODIXANOL 320 MG/ML 100 ML VIAL. ONE (07:59)
[2018-04-29] MEDS: ASPIRIN ENTERIC COATED 81 MG TABLET.DR. PO SCH (08:12)
[2018-04-29] MEDS: CARVEDILOL 6.25 MG TABLET. PO SCH ×2 (08:14→17:00)
[2018-04-29] MEDS: amLODIPine BESYLATE 5 MG TABLET PO SCH (08:15)
[2018-04-29] MEDS: GLIMEPIRIDE 2 MG TABLET. PO SCH (08:15)
--- NOTE | 2018-04-29 09:57 | PDOC ---
PULMONARY PROGRESS NOTES Subjective c/o CP with exertion Vitals Vital Signs Date Time Temp Pulse Resp B/P (MAP) Pulse Ox O2 Delivery O2 Flow Rate FiO2 04/29/18 09:33 Room Air 1.0 04/29/18 08:16 96 04/29/18 08:15 73 118/65 04/29/18 07:00 98.6 17 98.6 General: Alert, No acute distress Lungs: Crackles (one third bases) Cardiovascular: S1 Abdomen: Soft Neuro Exam: Alert Extremities: No Edema Skin: Warm Labs Laboratory Tests Test 04/27/18 11:43 04/27/18 15:00 04/27/18 16:58 04/27/18 17:55 Glucose (Fingerstick) 292 mg/dL (70-99) 260 mg/dL (70-99) Prothrombin Time 13.3 SEC (11.7-14.0) Prothromb Time International Ratio 1.1 (0.8-1.1) Heparin Anti-Xa Act, Unfractionated 0.39 IU/mL (0.30-0.70) Test 04/27/18 21:01 04/28/18 00:25 04/28/18 06:25 04/28/18 07:45 Glucose (Fingerstick) 235 mg/dL (70-99) 235 mg/dL (70-99) Heparin Anti-Xa Act, Unfractionated 0.33 IU/mL (0.30-0.70) 0.48 IU/mL (0.30-0.70) White Blood Count 11.6 x10^3/uL (4.0-11.0) Red Blood Count 4.47 x10^6/uL (3.50-5.40) Hemoglobin 12.5 g/dL (12.0-15.5) Hematocrit 37.9 % (36.0-47.0) Mean Corpuscular Volume 85 fL (79-100) Mean Corpuscular Hemoglobin 28 pg (25-35) Mean Corpuscular Hemoglobin Concent 33 g/dL (31-37) Red Cell Distribution Width 14.7 % (11.5-14.5) Platelet Count 280 x10^3/uL (140-400) Neutrophils (%) (Auto) 68 % (31-73) Lymphocytes (%) (Auto) 24 % (24-48) Monocytes (%) (Auto) 6 % (0-9) Eosinophils (%) (Auto) 2 % (0-3) Basophils (%) (Auto) 0 % (0-3) Neutrophils # (Auto) 7.9 x10^3uL (1.8-7.7) Lymphocytes # (Auto) 2.8 x10^3/uL (1.0-4.8) Monocytes # (Auto) 0.6 x10^3/uL (0.0-1.1) Eosinophils # (Auto) 0.2 x10^3/uL (0.0-0.7) Basophils # (Auto) 0.0 x10^3/uL (0.0-0.2) Sodium Level 139 mmol/L (136-145) Potassium Level 3.6 mmol/L (3.5-5.1) Chloride Level 101 mmol/L (98-107) Carbon Dioxide Level 27 mmol/L (21-32) Anion Gap 11 (6-14) Blood Urea Nitrogen 32 mg/dL (7-20) Creatinine 2.0 mg/dL (0.6-1.0) Estimated GFR (Cockcroft-Gault) 24.6 Glucose Level 241 mg/dL (70-99) Calcium Level 9.3 mg/dL (8.5-10.1) Test 04/28/18 11:08 04/28/18 16:39 04/28/18 20:40 04/29/18 04:05 Glucose (Fingerstick) 288 mg/dL (70-99) 166 mg/dL (70-99) 183 mg/dL (70-99) White Blood Count 10.3 x10^3/uL (4.0-11.0) Red Blood Count 3.89 x10^6/uL (3.50-5.40) Hemoglobin 11.1 g/dL (12.0-15.5) Hematocrit 33.1 % (36.0-47.0) Mean Corpuscular Volume 85 fL (79-100) Mean Corpuscular Hemoglobin 28 pg (25-35) Mean Corpuscular Hemoglobin Concent 33 g/dL (31-37) Red Cell Distribution Width 14.7 % (11.5-14.5) Platelet Count 220 x10^3/uL (140-400) Neutrophils (%) (Auto) 64 % (31-73) Lymphocytes (%) (Auto) 28 % (24-48) Monocytes (%) (Auto) 5 % (0-9) Eosinophils (%) (Auto) 2 % (0-3) Basophils (%) (Auto) 1 % (0-3) Neutrophils # (Auto) 6.6 x10^3uL (1.8-7.7) Lymphocytes # (Auto) 2.8 x10^3/uL (1.0-4.8) Monocytes # (Auto) 0.5 x10^3/uL (0.0-1.1) Eosinophils # (Auto) 0.2 x10^3/uL (0.0-0.7) Basophils # (Auto) 0.1 x10^3/uL (0.0-0.2) Heparin Anti-Xa Act, Unfractionated 0.35 IU/mL (0.30-0.70) Sodium Level 141 mmol/L (136-145) Potassium Level 4.3 mmol/L (3.5-5.1) Chloride Level 105 mmol/L (98-107) Carbon Dioxide Level 27 mmol/L (21-32) Anion Gap 9 (6-14) Blood Urea Nitrogen 30 mg/dL (7-20) Creatinine 1.9 mg/dL (0.6-1.0) Estimated GFR (Cockcroft-Gault) 26.1 Glucose Level 222 mg/dL (70-99) Calcium Level 8.5 mg/dL (8.5-10.1) Test 04/29/18 07:36 Glucose (Fingerstick) 163 mg/dL (70-99) Laboratory Tests Test 04/28/18 11:08 04/28/18 16:39 04/28/18 20:40 04/29/18 04:05 Glucose (Fingerstick) 288 mg/dL (70-99) 166 mg/dL (70-99) 183 mg/dL (70-99) White Blood Count 10.3 x10^3/uL (4.0-11.0) Red Blood Count 3.89 x10^6/uL (3.50-5.40) Hemoglobin 11.1 g/dL (12.0-15.5) Hematocrit 33.1 % (36.0-47.0) Mean Corpuscular Volume 85 fL (79-100) Mean Corpuscular Hemoglobin 28 pg (25-35) Mean Corpuscular Hemoglobin Concent 33 g/dL (31-37) Red Cell Distribution Width 14.7 % (11.5-14.5) Platelet Count 220 x10^3/uL (140-400) Neutrophils (%) (Auto) 64 % (31-73) Lymphocytes (%) (Auto) 28 % (24-48) Monocytes (%) (Auto) 5 % (0-9) Eosinophils (%) (Auto) 2 % (0-3) Basophils (%) (Auto) 1 % (0-3) Neutrophils # (Auto) 6.6 x10^3uL (1.8-7.7) Lymphocytes # (Auto) 2.8 x10^3/uL (1.0-4.8) Monocytes # (Auto) 0.5 x10^3/uL (0.0-1.1) Eosinophils # (Auto) 0.2 x10^3/uL (0.0-0.7) Basophils # (Auto) 0.1 x10^3/uL (0.0-0.2) Heparin Anti-Xa Act, Unfractionated 0.35 IU/mL (0.30-0.70) Sodium Level 141 mmol/L (136-145) Potassium Level 4.3 mmol/L (3.5-5.1) Chloride Level 105 mmol/L (98-107) Carbon Dioxide Level 27 mmol/L (21-32) Anion Gap 9 (6-14) Blood Urea Nitrogen 30 mg/dL (7-20) Creatinine 1.9 mg/dL (0.6-1.0) Estimated GFR (Cockcroft-Gault) 26.1 Glucose Level 222 mg/dL (70-99) Calcium Level 8.5 mg/dL (8.5-10.1) Test 04/29/18 07:36 Glucose (Fingerstick) 163 mg/dL (70-99) Medications Active Scripts Medications Dose Route/Sig Max Daily Dose Days Date Category Zemplar (Paricalcitol) 1 Mcg Capsule 1 Mcg PO DAILY 04/25/18 Reported Lantus Solostar (Insulin Glargine,Hum.rec.anlog) 100 Unit/1 Ml Insuln.pen 20 Unit SQ QHS 04/25/18 Reported Carvedilol 6.25 Mg Tablet 6.25 Mg PO BIDWMEALS 04/25/18 Reported Cetirizine Hcl 10 Mg Tablet 10 Mg PO DAILY 04/25/18 Reported Amlodipine Besylate 5 Mg Tablet 5 Mg PO DAILY 04/25/18 Reported Tramadol Hcl 50 Mg Tablet 50 Mg PO Q4HRS PRN 04/25/18 Reported Glimepiride 1 Mg Tablet 1 Mg PO DAILY 04/25/18 Reported Januvia (Sitagliptin Phosphate) 50 Mg Tablet 50 Mg PO DAILY 04/25/18 Reported Crestor (Rosuvastatin Calcium) 20 Mg Tablet 20 Mg PO HS 04/25/18 Reported Comments HRCT CHEST 1. Minimal bibasilar prominent interstitial lung markings could be scarring or fibrosis. No evidence of honeycombing or traction bronchiectasis. 2. Stable pulmonary nodules. 3. Hepatic steatosis. Electronically signed by: Mansoor Marinelli MD (04/27/2018 12:29 PM) [facility] Impression . 1. Substernal chest pain with increased troponin level, NSTMI/ Cardiac catheterization is planned for Sunday. 2. Persistent crackles one third bases. High Res CT chest with mild interstitial scaring . no honeycombing . Clinical findings of crackles at bases out of proportion to radiographic finding. she has chronic mild exertional dyspnea for a few years .Clinically, suspect that she may have early pulmonary fibrosis. We will do connective tissue disease w/u as OP. 3. No significant history of tobacco use. No history of asthma. 4. CP with exertion/ No pulmonary HTN on echo. suspect unstable angina. If no CAD on cath, will do VQ scan Conclusion 1. Elevated left ventricualr filling pressures consistent with mild acute on chronic decompensated HF. LVEDP 18 mm Hg 2. Two vessel CAD 3. Negative iFR of the LAD at 0.90 4. Successful PCI of the Lcx with a Resolute 2.5/15 mm ROZ. Recommendations ASA 81mg daily indefinitely Ticagrelor 90mg bid x 3 months and then switch to Plavix 75mg daily High dose statin therapy Cardiac rehab referral. Plan . PT NOT SEEN IN CATH SUITE 1. Follow Cardiology's recommendations and cardiac catheterization results on Sunday. 2. Connective tissue disease w/u as OP. 3. PFTs as an outpatient. 4. P.r.n. bronchodilators. 5. 6 min walk at hi Discussed with MIKE. ESRA ARAYA MD Apr 29, 2018 09:57
[2018-04-29] MEDS ORDERED: MIDAZOLAM HCL/PF 2 MG/2 ML VIAL. ONE (10:32)
[2018-04-29] MEDS ORDERED: fentaNYL PF VIAL 100 MCG/2 ML VIAL ONE (10:32)
[2018-04-29] MEDS ORDERED: NITROGLYCERIN 200 MCG/2 ML SYRINGE FOR CATH/VASC LAB. IART ONE (11:00)
[2018-04-29] MEDS ORDERED: LIDOCAINE 1% PF 2 ML VIAL. INJ ONE (11:00)
[2018-04-29] MEDS ORDERED: VERAPAMIL 5 MG/2 ML VIAL. IART ONE (11:00)
[2018-04-29] MEDS ORDERED: MIDAZOLAM HCL/PF 2 MG/2 ML VIAL. IV ONE (11:00)
[2018-04-29] MEDS ORDERED: IODIXANOL 320 MG/ML 100 ML VIAL. IART ONE (11:00)
[2018-04-29] MEDS ORDERED: HEPARIN for IV BOLUS 10,000 UNIT/10 ML VIAL. IART ONE (11:00)
[2018-04-29] MEDS ORDERED: fentaNYL PF VIAL 100 MCG/2 ML VIAL IV ONE (11:00)
--- NOTE | 2018-04-29 11:09 | PDOC ---
SUBJECTIVE ROS Acute kidney injury/CK D Patient denies ongoing chest pain however she does have angina on exertion. CVS: Minimal Orthopnea, positive CP on exertion RESP: Occ SOB, ? CHRISTINE patient not ambulated GI: no Nausea, no Vomiting : no Dysuria, no Urgency OBJECTIVE Vital Signs Vital Signs Date Time Temp Pulse Resp B/P (MAP) Pulse Ox O2 Delivery O2 Flow Rate FiO2 04/29/18 09:33 Room Air 1.0 04/29/18 08:16 96 04/29/18 08:15 73 118/65 04/29/18 07:00 98.6 17 98.6 I & 0 Intake and Output 04/29/18 07:00 Intake Total 2083 ml Output Total 1175 ml Balance 908 ml Intake Oral 890 ml IV Total 1193 ml Output Urine Total 1175 ml # Voids 5 PHYSICAL EXAM Physical Exam GEN: Awake, Oriented x 3, In no distress EYES: Vision Unchanged, Conjunctiva Normal EN: No EN Drainage, Mucous Membranes moist NECK: no JVD, min JVP, Supple, no Thyromegaly CVS: S1S2, ? soft Murmur, No Gallop, No Rub,Tr Edema RESP: rare basal Rales, no Rhonchi,no Acc. Muscle Use GI: BS + ve, NO Bruit, Non Tender, Non Distended : no CVA tenderness, no Suprapubic Tenderness DIAGNOSIS/ASSESSMENT Assessment & Plan Presumed CK D stage 4 at current levels. Presumably a result of diabetic hypertensive nephrosclerosis and renal atrophy is noted on CT scan. Current fluid and E-lyte status does not necessitate emergent need for dialysis. Will re-evaluate for dialysis in the am especially after left heart catheter. Start 24-hour urine collection Stuttering angina: Especially with exertion, left heart catheter later today. IV fluids for pre-hydration Possible minimal CHF as noted on CT chest. Currently she appears to be clinically compensated. Marginal anemia ANEMIA; presumably dilutional HTN: Current BP meds as reviewed. Defer to cardiology to optimize after left heart catheter Possible proteinuria: We'll quantitated with 24-hour urine collection Poorly controlled diabetes: A1c 13.6. Emphasized importance of diabetes control the patient, especially given the likelihood of progression of underlying security Hepatic steatosis as noted on CT scan: This could be a risk factor for chronic kidney disease. Subjective edema: May need diuresis post catheter Discussed Plan of Care with patient at bedside: Patient will follow-up with Dr. Chavis in our practice at discharge COMMENT/RELEVANT DATA Meds Current Medications Medications (Trade) Dose Ordered Sig/Gerald Start Time Stop Time Status Last Admin Dose Admin Acetaminophen (Tylenol) 650 mg PRN Q4HRS PRN 04/28/18 13:45 04/28/18 22:28 650 MG Amlodipine Besylate (Norvasc) 5 mg DAILY 04/25/18 13:00 04/29/18 08:15 5 MG Aspirin (Ecotrin) 81 mg [id number] 04/26/18 08:00 04/29/18 08:12 81 MG Atorvastatin Calcium (Lipitor) 40 mg QHS 04/25/18 21:00 04/28/18 21:01 40 MG Carvedilol (Coreg) 6.25 mg BIDWMEALS 04/25/18 17:00 04/29/18 08:14 6.25 MG Cetirizine HCl (ZyrTEC) 10 mg DAILY 04/26/18 09:00 04/28/18 08:38 10 MG Dextrose (Dextrose 50%-Water Syringe) 12.5 gm PRN Q15MIN PRN 04/25/18 12:15 UNV Enoxaparin Sodium (Lovenox 60mg Syringe) 60 mg 1X ONCE 04/26/18 16:00 04/26/18 16:01 DC 04/26/18 18:06 60 MG Fentanyl Citrate (Fentanyl 2ml Vial) 100 mcg STK-MED ONCE 04/29/18 10:32 04/29/18 10:33 DC Glimepiride (Amaryl) 1 mg DAILY 04/26/18 09:00 04/29/18 08:15 1 MG Heparin Sodium/ Dextrose 500 ml @ 0 mls/hr CONT PRN 04/27/18 11:30 04/28/18 22:32 14.4 MLS/HR Insulin Glargine (Lantus) 25 units QHS 04/27/18 21:00 04/28/18 20:57 25 UNITS Insulin Human Lispro (HumaLOG) 10 units TIDAC 04/28/18 11:30 04/28/18 17:44 10 UNITS Insulin Human Regular (HumuLIN R VIAL) 8 unit 1X ONCE 04/25/18 10:30 04/25/18 10:31 DC 04/25/18 10:51 8 UNIT Iodixanol (Visipaque 320) 100 ml STK-MED ONCE 04/29/18 07:59 04/29/18 08:00 DC Labetalol HCl (Normodyne Iv Push) 20 mg PRN Q2HR PRN 04/25/18 12:45 Linagliptin (Tradjenta) 5 mg DAILY 04/26/18 09:00 04/28/18 08:41 5 MG Midazolam HCl (Versed) 2 mg STK-MED ONCE 04/29/18 10:32 04/29/18 10:33 DC Morphine Sulfate (Morphine Sulfate) 2 mg PRN Q4HRS PRN 04/28/18 13:45 04/28/18 13:55 2 MG Nitroglycerin (Nitrostat) 0.4 mg PRN Q5MIN PRN 04/27/18 13:00 04/27/18 13:28 0.4 MG Ondansetron HCl (Zofran) 4 mg PRN Q8HRS PRN 04/25/18 10:30 04/26/18 10:29 DC 04/25/18 17:15 4 MG Paricalcitol (Zemplar) 1 mcg DAILY 04/26/18 09:00 04/28/18 08:41 1 MCG Sodium Chloride 1,000 ml @ 75 mls/hr [id number] 04/28/18 10:15 04/28/18 22:47 75 MLS/HR Tramadol HCl (Ultram) 50 mg PRN Q4HRS PRN 04/25/18 16:45 04/29/18 08:16 50 MG Lab Laboratory Tests Test 04/28/18 11:08 04/28/18 16:39 04/28/18 20:40 04/29/18 04:05 Glucose (Fingerstick) 288 mg/dL (70-99) 166 mg/dL (70-99) 183 mg/dL (70-99) White Blood Count 10.3 x10^3/uL (4.0-11.0) Red Blood Count 3.89 x10^6/uL (3.50-5.40) Hemoglobin 11.1 g/dL (12.0-15.5) Hematocrit 33.1 % (36.0-47.0) Mean Corpuscular Volume 85 fL (79-100) Mean Corpuscular Hemoglobin 28 pg (25-35) Mean Corpuscular Hemoglobin Concent 33 g/dL (31-37) Red Cell Distribution Width 14.7 % (11.5-14.5) Platelet Count 220 x10^3/uL (140-400) Neutrophils (%) (Auto) 64 % (31-73) Lymphocytes (%) (Auto) 28 % (24-48) Monocytes (%) (Auto) 5 % (0-9) Eosinophils (%) (Auto) 2 % (0-3) Basophils (%) (Auto) 1 % (0-3) Neutrophils # (Auto) 6.6 x10^3uL (1.8-7.7) Lymphocytes # (Auto) 2.8 x10^3/uL (1.0-4.8) Monocytes # (Auto) 0.5 x10^3/uL (0.0-1.1) Eosinophils # (Auto) 0.2 x10^3/uL (0.0-0.7) Basophils # (Auto) 0.1 x10^3/uL (0.0-0.2) Heparin Anti-Xa Act, Unfractionated 0.35 IU/mL (0.30-0.70) Sodium Level 141 mmol/L (136-145) Potassium Level 4.3 mmol/L (3.5-5.1) Chloride Level 105 mmol/L (98-107) Carbon Dioxide Level 27 mmol/L (21-32) Anion Gap 9 (6-14) Blood Urea Nitrogen 30 mg/dL (7-20) Creatinine 1.9 mg/dL (0.6-1.0) Estimated GFR (Cockcroft-Gault) 26.1 Glucose Level 222 mg/dL (70-99) Calcium Level 8.5 mg/dL (8.5-10.1) Test 04/29/18 07:36 Glucose (Fingerstick) 163 mg/dL (70-99) Results All relevant outside records, renal labs, imaging studies, telemetry/EKG's were reviewed. Other Findings on recent CT scan Somewhat atrophic appearing bilateral kidneys. Mild degenerative changes thoracic spine. IMPRESSION: 1. Minimal bibasilar prominent interstitial lung markings could be scarring or fibrosis. No evidence of honeycombing or traction bronchiectasis. 2. Stable pulmonary nodules. 3. Hepatic steatosis JAMILA KHAN MD Apr 29, 2018 11:09
[2018-04-29] MEDS ORDERED: LIDOCAINE 1% PF 2 ML VIAL. ONE (11:13)
--- NOTE | 2018-04-29 11:26 | PDOC ---
MODERATE SEDATION ASSESSMENT RISKS/ALTERNATIVES Risks/Alternatives Risks and alternatives of this type of sedation and procedure discussed with: RISK/ALTERNATIVES: Patient H & P ON CHART H & P H & P on chart and reviewed for co-morbid conditions and appropriate labs. H&P ON CHART: Yes STATUS PREG STATUS ASSESSED: N/A MEDS/ALLERGIES REVIEWED Meds/Allergies Reviewed Medications and Allergies including time and route of recently administered narcotics and sedatives. MEDS/ALLERGIES REVIEWED: Yes ASA RATING ASA RATING: II AIRWAY ASSESSMENT Airway Assessment Airway patency, oral function limitations, presence of caps, crowns, dentures, partials, and ability to extend neck assessed. AIRWAY ASSESSMENT: Yes MALLAMPATI SCORE MALLAMPATI SCORE: II PRE-SEDATION ASSESSMENT PRE-SEDATION ASSESSMENT: Yes JEREMY GREENE MD Apr 29, 2018 11:26
[2018-04-29] MEDS ORDERED: NITROGLYCERIN 200 MCG/2 ML SYRINGE FOR CATH/VASC LAB. ONE (11:32)
[2018-04-29] MEDS ORDERED: VERAPAMIL 5 MG/2 ML VIAL. ONE (11:32)
[2018-04-29] MEDS ORDERED: HEPARIN for IV BOLUS 10,000 UNIT/10 ML VIAL. ONE (11:32)
[2018-04-29] MEDS ORDERED: TIROFIBAN 5MG -0.9% NS 100 ML IV ONE (11:56)
[2018-04-29] MEDS ORDERED: LIDOCAINE 1% PF 30 ML VIAL. ONE (12:02)
[2018-04-29] MEDS ORDERED: TIROFIBAN 5MG -0.9% NS 100 ML IV PRN (12:30)
[2018-04-29] MEDS ORDERED: HEPARIN for IV BOLUS 10,000 UNIT/10 ML VIAL. IV ONE (12:30)
[2018-04-29] MEDS ORDERED: TICAGRELOR 90 MG TABLET. PO ONE (12:30)
[2018-04-29] MEDS ORDERED: LIDOCAINE 1% PF 30 ML VIAL. INJ ONE (12:45)
[2018-04-29] MEDS: IV NORMAL SALINE 1000ML BAG 1,000 ML IV SCH (12:55)
--- NOTE | 2018-04-29 13:09 | CARD ---
MR#: [id number] Date of Study: 04/29/2018 Ordering Physician: ROSIBEL RUSSO, Referring Physician: YOLANDA ERWIN Tech: RT Glendy (R) APPROVED REPORT Technologist: RT Glendy (R) Nurse: Jannette Machuca RN Procedure(s) performed: Moderate sedation: 67 minutes LHC, Coronary angiography, PCI of the LCx, iFR of the LAD HISTORY : The patient is a 72 year-old with a history of . INDICATION The indication(s) include : non-STEMI . PROCEDURE NARRATIVE CLINICAL INFORMATION: 72 y.o woman with NSTEMI in the setting of CKD underwent PCI after renal optimization. INFORMED CONSENT: After explaining the risks and benefits of the procedure and alternatives, informed consent was obtained. The patient was brought electively to the cardiac catheterization lab. A timeout was performed confi rming the patient's name, date of , procedure, and site of procedure. All necessary personnel w ere wearing the appropriate protective equipment and radiation monitor devices. (See nursing notes for medications administered). ACCESS: The right wrist was sterilely prepped and draped in the usual fashion. The right wrist was infiltrat ed with 1 mL of 2% lidocaine for subcutaneous anesthesia. A 6 Afghan Terumo glide sheath was inserte d into the right radial artery without difficulty. CORONARY ANGIOGRAPHY: Right and left coronary angiography was performed using a 5Fr TIG 4.0 catheter. FINDINGS: HEMODYNAMICS: LVEDP 18 mm Hg No gradient on LV to aortic pullback. AO: 110/70 LEFT VENTRICULOGRAM: Deferred due to known normal EF by echo and CKD with Cr > 1.5. CORONARY ANGIOGRAPHY: LM is a large caliber vessel with normal angiographic appearance. LAD is a large caliber vessel with a proximal to mid eccentric 50-60% stenosis. LCx is a moderate caliber non-dominant vessel with mild luminal irregularities of up to 20%. OM1 is a moderate caliber vessel with proximal 20% stenosis and mid 95% stenosis prior to a bifurcati on. RCA is a moderate caliber vessel with mild luminal irregularities. INTERVENTIONAL TECHNIQUE: Due to the NSTEMI and critical LCx stenosis an intervention was performed. Heparin and Tirofiban were used for anticoagulation. Attempts to advance a 6Fr guide through the right arm vasculature despite NTG/Verapamil and telescoping techniques did not help with arterial spasm. Therefore, a 6Fr sheath wa s placed in the RCFA via the modified seldinger technique. Next, through a 6Fr EBU 3.5 guide catheter , a 0.014'' Prowater wire was advanced to the distal LCx. The lesion was angioplastied with a Trek 2. 0/12 mm balloon and then stented with a 2.5/15 mm Resolute Colt ROZ at 12 darrel. Next, an iFR wire was advanced to the distal LAD after appropriate normalization and NTG administration. Two iFR studies re vealed an iFR of 0.90. Therefore, further intervention on the LAD was deferred. Final post-PCI angio graphy revealed excellent stent expansion with TIFFANIE 3 flow in the LAD. Left ventricular end diastolic pressure was obtained with a pigtail catheter and pullback was performed after left ventriculography . All catheter exchanges and advancements were performed over a guidewire. CLOSURE: At case completion the right radial sheath was removed and a Terumo radial band was applied with 13 m l of air. The right groin sheath was removed and hemostasis was achieved with an angioseal device. A t case completion, the patient received Ticagrelor 180mg. COMPLICATIONS: The patient tolerated the procedure well and there were no immediate complications. Conclusion 1. Elevated left ventricualr filling pressures consistent with mild acute on chronic decompensated HF . LVEDP 18 mm Hg 2. Two vessel CAD 3. Negative iFR of the LAD at 0.90 4. Successful PCI of the Lcx with a Resolute 2.5/15 mm ROZ. Recommendations ASA 81mg daily indefinitely Ticagrelor 90mg bid x 3 months and then switch to Plavix 75mg daily High dose statin therapy Cardiac rehab referral. Signed by : Pool Tapia, Electronically Approved : 04/29/2018 13:08:47
[2018-04-29] MEDS: LINAGLIPTIN 5 MG TABLET PO SCH (13:23)
[2018-04-29] MEDS: PARICALCITOL 1 MCG CAPSULE PO SCH (13:23)
[2018-04-29] MEDS: CETIRIZINE HCL 10 MG TABLET. PO SCH (13:23)
--- NOTE | 2018-04-29 15:24 | PDOC ---
PROGRESS NOTES Chief Complaint Chief Complaint Chest pain, NSTEMI, poST cath PCI Lcx 04/29 Uncontrolled DM2 SEJAL , vasomotor CKD3 H/o Hyperlipidemia H/o HTN plan: fu with card, cath today cont insulin cont home meds ivf labs daily History of Present Illness History of Present Illness Pt seen and examined. Pt is very pleasant and sitting in bedside chair and in some distress. this morning walked to the restroom, experienced worse chest pain radiating into her left arm and back, more short of breath again today. Her blood sugar has been up despite increased coverage yesterday ADRIEN RN Vitals Vitals Vital Signs Date Time Temp Pulse Resp B/P (MAP) Pulse Ox O2 Delivery O2 Flow Rate FiO2 04/29/18 14:12 72 99 Room Air 04/29/18 14:07 2.0 04/29/18 12:45 18 04/29/18 11:00 99.0 130/64 (86) 99.0 Physical Exam General: Oriented X3, Cooperative, mild distress Heart: Regular rate (SR), Normal S1, Normal S2, Other (2/6 systolic murmur to LLS border) Lungs: Crackles (one third bases) Abdomen: Soft, No tenderness Extremities: No cyanosis, Other (trace LE edema) Skin: No breakdown, No significant lesion Labs LABS Laboratory Tests Test 04/28/18 16:39 04/28/18 20:40 04/29/18 04:05 04/29/18 07:36 Glucose (Fingerstick) 166 mg/dL (70-99) 183 mg/dL (70-99) 163 mg/dL (70-99) White Blood Count 10.3 x10^3/uL (4.0-11.0) Red Blood Count 3.89 x10^6/uL (3.50-5.40) Hemoglobin 11.1 g/dL (12.0-15.5) Hematocrit 33.1 % (36.0-47.0) Mean Corpuscular Volume 85 fL (79-100) Mean Corpuscular Hemoglobin 28 pg (25-35) Mean Corpuscular Hemoglobin Concent 33 g/dL (31-37) Red Cell Distribution Width 14.7 % (11.5-14.5) Platelet Count 220 x10^3/uL (140-400) Neutrophils (%) (Auto) 64 % (31-73) Lymphocytes (%) (Auto) 28 % (24-48) Monocytes (%) (Auto) 5 % (0-9) Eosinophils (%) (Auto) 2 % (0-3) Basophils (%) (Auto) 1 % (0-3) Neutrophils # (Auto) 6.6 x10^3uL (1.8-7.7) Lymphocytes # (Auto) 2.8 x10^3/uL (1.0-4.8) Monocytes # (Auto) 0.5 x10^3/uL (0.0-1.1) Eosinophils # (Auto) 0.2 x10^3/uL (0.0-0.7) Basophils # (Auto) 0.1 x10^3/uL (0.0-0.2) Heparin Anti-Xa Act, Unfractionated 0.35 IU/mL (0.30-0.70) Sodium Level 141 mmol/L (136-145) Potassium Level 4.3 mmol/L (3.5-5.1) Chloride Level 105 mmol/L (98-107) Carbon Dioxide Level 27 mmol/L (21-32) Anion Gap 9 (6-14) Blood Urea Nitrogen 30 mg/dL (7-20) Creatinine 1.9 mg/dL (0.6-1.0) Estimated GFR (Cockcroft-Gault) 26.1 Glucose Level 222 mg/dL (70-99) Calcium Level 8.5 mg/dL (8.5-10.1) Test 04/29/18 13:25 Glucose (Fingerstick) 94 mg/dL (70-99) Assessment and Plan Assessmemt and Plan Problems Medical Problems: (1) Chronic renal failure Status: Acute (2) Hyperglycemia Status: Acute (3) NSTEMI (non-ST elevated myocardial infarction) Status: Acute Comment Review of Relevant I have reviewed the following items reena (where applicable) has been applied. Labs Laboratory Tests Test 04/27/18 16:58 04/27/18 17:55 04/27/18 21:01 04/28/18 00:25 Glucose (Fingerstick) 260 mg/dL (70-99) 235 mg/dL (70-99) Heparin Anti-Xa Act, Unfractionated 0.39 IU/mL (0.30-0.70) 0.33 IU/mL (0.30-0.70) Test 04/28/18 06:25 04/28/18 07:45 04/28/18 11:08 04/28/18 16:39 White Blood Count 11.6 x10^3/uL (4.0-11.0) Red Blood Count 4.47 x10^6/uL (3.50-5.40) Hemoglobin 12.5 g/dL (12.0-15.5) Hematocrit 37.9 % (36.0-47.0) Mean Corpuscular Volume 85 fL (79-100) Mean Corpuscular Hemoglobin 28 pg (25-35) Mean Corpuscular Hemoglobin Concent 33 g/dL (31-37) Red Cell Distribution Width 14.7 % (11.5-14.5) Platelet Count 280 x10^3/uL (140-400) Neutrophils (%) (Auto) 68 % (31-73) Lymphocytes (%) (Auto) 24 % (24-48) Monocytes (%) (Auto) 6 % (0-9) Eosinophils (%) (Auto) 2 % (0-3) Basophils (%) (Auto) 0 % (0-3) Neutrophils # (Auto) 7.9 x10^3uL (1.8-7.7) Lymphocytes # (Auto) 2.8 x10^3/uL (1.0-4.8) Monocytes # (Auto) 0.6 x10^3/uL (0.0-1.1) Eosinophils # (Auto) 0.2 x10^3/uL (0.0-0.7) Basophils # (Auto) 0.0 x10^3/uL (0.0-0.2) Heparin Anti-Xa Act, Unfractionated 0.48 IU/mL (0.30-0.70) Sodium Level 139 mmol/L (136-145) Potassium Level 3.6 mmol/L (3.5-5.1) Chloride Level 101 mmol/L (98-107) Carbon Dioxide Level 27 mmol/L (21-32) Anion Gap 11 (6-14) Blood Urea Nitrogen 32 mg/dL (7-20) Creatinine 2.0 mg/dL (0.6-1.0) Estimated GFR (Cockcroft-Gault) 24.6 Glucose Level 241 mg/dL (70-99) Calcium Level 9.3 mg/dL (8.5-10.1) Glucose (Fingerstick) 235 mg/dL (70-99) 288 mg/dL (70-99) 166 mg/dL (70-99) Test 04/28/18 20:40 04/29/18 04:05 04/29/18 07:36 04/29/18 13:25 Glucose (Fingerstick) 183 mg/dL (70-99) 163 mg/dL (70-99) 94 mg/dL (70-99) White Blood Count 10.3 x10^3/uL (4.0-11.0) Red Blood Count 3.89 x10^6/uL (3.50-5.40) Hemoglobin 11.1 g/dL (12.0-15.5) Hematocrit 33.1 % (36.0-47.0) Mean Corpuscular Volume 85 fL (79-100) Mean Corpuscular Hemoglobin 28 pg (25-35) Mean Corpuscular Hemoglobin Concent 33 g/dL (31-37) Red Cell Distribution Width 14.7 % (11.5-14.5) Platelet Count 220 x10^3/uL (140-400) Neutrophils (%) (Auto) 64 % (31-73) Lymphocytes (%) (Auto) 28 % (24-48) Monocytes (%) (Auto) 5 % (0-9) Eosinophils (%) (Auto) 2 % (0-3) Basophils (%) (Auto) 1 % (0-3) Neutrophils # (Auto) 6.6 x10^3uL (1.8-7.7) Lymphocytes # (Auto) 2.8 x10^3/uL (1.0-4.8) Monocytes # (Auto) 0.5 x10^3/uL (0.0-1.1) Eosinophils # (Auto) 0.2 x10^3/uL (0.0-0.7) Basophils # (Auto) 0.1 x10^3/uL (0.0-0.2) Heparin Anti-Xa Act, Unfractionated 0.35 IU/mL (0.30-0.70) Sodium Level 141 mmol/L (136-145) Potassium Level 4.3 mmol/L (3.5-5.1) Chloride Level 105 mmol/L (98-107) Carbon Dioxide Level 27 mmol/L (21-32) Anion Gap 9 (6-14) Blood Urea Nitrogen 30 mg/dL (7-20) Creatinine 1.9 mg/dL (0.6-1.0) Estimated GFR (Cockcroft-Gault) 26.1 Glucose Level 222 mg/dL (70-99) Calcium Level 8.5 mg/dL (8.5-10.1) Laboratory Tests Test 04/28/18 16:39 04/28/18 20:40 04/29/18 04:05 04/29/18 07:36 Glucose (Fingerstick) 166 mg/dL (70-99) 183 mg/dL (70-99) 163 mg/dL (70-99) White Blood Count 10.3 x10^3/uL (4.0-11.0) Red Blood Count 3.89 x10^6/uL (3.50-5.40) Hemoglobin 11.1 g/dL (12.0-15.5) Hematocrit 33.1 % (36.0-47.0) Mean Corpuscular Volume 85 fL (79-100) Mean Corpuscular Hemoglobin 28 pg (25-35) Mean Corpuscular Hemoglobin Concent 33 g/dL (31-37) Red Cell Distribution Width 14.7 % (11.5-14.5) Platelet Count 220 x10^3/uL (140-400) Neutrophils (%) (Auto) 64 % (31-73) Lymphocytes (%) (Auto) 28 % (24-48) Monocytes (%) (Auto) 5 % (0-9) Eosinophils (%) (Auto) 2 % (0-3) Basophils (%) (Auto) 1 % (0-3) Neutrophils # (Auto) 6.6 x10^3uL (1.8-7.7) Lymphocytes # (Auto) 2.8 x10^3/uL (1.0-4.8) Monocytes # (Auto) 0.5 x10^3/uL (0.0-1.1) Eosinophils # (Auto) 0.2 x10^3/uL (0.0-0.7) Basophils # (Auto) 0.1 x10^3/uL (0.0-0.2) Heparin Anti-Xa Act, Unfractionated 0.35 IU/mL (0.30-0.70) Sodium Level 141 mmol/L (136-145) Potassium Level 4.3 mmol/L (3.5-5.1) Chloride Level 105 mmol/L (98-107) Carbon Dioxide Level 27 mmol/L (21-32) Anion Gap 9 (6-14) Blood Urea Nitrogen 30 mg/dL (7-20) Creatinine 1.9 mg/dL (0.6-1.0) Estimated GFR (Cockcroft-Gault) 26.1 Glucose Level 222 mg/dL (70-99) Calcium Level 8.5 mg/dL (8.5-10.1) Test 04/29/18 13:25 Glucose (Fingerstick) 94 mg/dL (70-99) Microbiology 04/25/18 Urine Culture - Final, Complete 04/25/18 Urine Culture Result 1 (ELVIS) - Final, Complete Medications Current Medications Morphine Sulfate (Morphine Sulfate) 2 mg 1X ONCE IV Last administered on at 09:24; Start 04/25/18 at 09:00; Stop 04/25/18 at 09:01; Status DC Insulin Human Regular (HumuLIN R VIAL) 8 unit 1X ONCE IV Last administered on 04/25/18at 10:51; Start 04/25/18 at 10:30; Stop 04/25/18 at 10:31; Status DC Ondansetron HCl (Zofran) 4 mg PRN Q8HRS PRN IV NAUSEA/VOMITING Last administered on 04/25/18at 17:15; Start 04/25/18 at 10:30; Stop 04/26/18 at 10:29 ; Status DC Morphine Sulfate (Morphine Sulfate) 4 mg PRN Q2HR PRN IV PAIN; Start 04/25/18 at 10:30; Stop 04/26/18 at 10:29; Status DC Acetaminophen (Tylenol) 650 mg PRN Q4HRS PRN PO FEVER; Start 04/25/18 at 10:30 ; Stop 04/26/18 at 10:29; Status DC Nitroglycerin (Nitrostat) 0.4 mg PRN Q5MIN PRN SL CHEST PAIN Last administered on 04/25/18at 10:55; Start 04/25/18 at 10:30; Stop 04/26/18 at 10:29; Status DC Dextrose (Dextrose 50%-Water Syringe) 12.5 gm PRN Q15MIN PRN IV SEE COMMENTS; Start 04/25/18 at 10:30 Insulin Human Lispro (HumaLOG) 12 units 1X ONCE SQ Last administered on at 12:46; Start 04/25/18 at 12:15; Stop 04/25/18 at 12:17; Status DC Insulin Human Lispro (HumaLOG) 0-9 UNITS TIDWMEALS SQ Last administered on 04/26at 18:18; Start 04/25/18 at 17:00; Stop 04/26/18 at 20:02; Status DC Dextrose (Dextrose 50%-Water Syringe) 12.5 gm PRN Q15MIN PRN IV SEE COMMENTS; Start 04/25/18 at 12:15; Status UNV Sodium Chloride 1,000 ml @ 75 mls/hr 1X ONCE IV Last administered on at 16:14; Start 04/25/18 at 12:45; Stop 04/26/18 at 02:04; Status DC Labetalol HCl (Normodyne Iv Push) 20 mg PRN Q2HR PRN IVP HYPERTENSION, SEE COMMENTS; Start 04/25/18 at 12:45 Aspirin (Ecotrin) 81 mg [id number] PO Last administered on 04/29/18at 08:12; Start 04/26/18 at 08:00 Amlodipine Besylate (Norvasc) 5 mg DAILY PO Last administered on 04/29/18at 08: 15; Start 04/25/18 at 13:00 Carvedilol (Coreg) 6.25 mg BIDWMEALS PO Last administered on 04/29/18at 08:14; Start 04/25/18 at 17:00 Enoxaparin Sodium (Lovenox 60mg Syringe) 60 mg 1X ONCE SQ Last administered on 04/25/18at 16:15; Start 04/25/18 at 13:00; Stop 04/25/18 at 13:02; Status DC Cetirizine HCl (ZyrTEC) 10 mg DAILY PO Last administered on 04/29/18at 13:23; Start 04/26/18 at 09:00 Insulin Glargine (Lantus) 20 units QHS SQ Last administered on 04/26/18 21:25 ; Start 04/25/18 at 21:00; Stop 04/27/18 at 17:05; Status DC Paricalcitol (Zemplar) 1 mcg DAILY PO Last administered on 04/29/18 13:23; Start 04/26/18 at 09:00 Tramadol HCl (Ultram) 50 mg PRN Q4HRS PRN PO PAIN Last administered on 08:16; Start 04/25/18 at 16:45 Glimepiride (Amaryl) 1 mg DAILY PO Last administered on 04/29/18 08:15; Start 04/26/18 at 09:00 Atorvastatin Calcium (Lipitor) 40 mg QHS PO Last administered on 04/28/18 21: 01; Start 04/25/18 at 21:00 Linagliptin (Tradjenta) 5 mg DAILY PO Last administered on 04/29/18 13:23; Start 04/26/18 at 09:00 Insulin Human Lispro (HumaLOG) 5 units 1X ONCE SQ Last administered on at 22:33; Start 04/25/18 at 22:30; Stop 04/25/18 at 22:45; Status DC Enoxaparin Sodium (Lovenox 60mg Syringe) 60 mg 1X ONCE SQ Last administered on 04/26/18 18:06; Start 04/26/18 at 16:00; Stop 04/26/18 at 16:01; Status DC Insulin Human Lispro (HumaLOG) 0-9 UNITS QIDACHS SQ Last administered on at 17:45; Start 04/26/18 at 21:00 Heparin Sodium/ Dextrose 500 ml @ 0 mls/hr CONT PRN IV SEE I/O RECORD Last administered on 04/28/18 22:32; Start 04/27/18 at 11:30 Nitroglycerin (Nitrostat) 0.4 mg PRN Q5MIN PRN SL CHEST PAIN Last administered on 04/27/18 13:28; Start 04/27/18 at 13:00 Insulin Glargine (Lantus) 25 units QHS SQ Last administered on 04/28/18at 20:57 ; Start 04/27/18 at 21:00 Insulin Human Lispro (HumaLOG) 5 units TIDAC SQ Last administered on 04/28/18at 08:40; Start 04/28/18 at 07:30; Stop 04/28/18 at 11:17; Status DC Sodium Chloride 1,000 ml @ 75 mls/hr [id number] IV Last administered on at 22:47; Start 04/28/18 at 10:15 Insulin Human Lispro (HumaLOG) 10 units TIDAC SQ Last administered on at 17:44; Start 04/28/18 at 11:30 Morphine Sulfate (Morphine Sulfate) 2 mg PRN Q4HRS PRN IV PAIN Last administered on 04/28/18at 13:55; Start 04/28/18 at 13:45 Acetaminophen (Tylenol) 650 mg PRN Q4HRS PRN PO HEADACHE Last administered on 04/28/18at 22:28; Start 04/28/18 at 13:45 Iodixanol (Visipaque 320) 100 ml STK-MED ONCE .ROUTE ; Start 04/29/18 at 07:59; Stop 04/29/18 at 08:00; Status DC Fentanyl Citrate (Fentanyl 2ml Vial) 100 mcg STK-MED ONCE .ROUTE ; Start at 10:32; Stop 04/29/18 at 10:33; Status DC Midazolam HCl (Versed) 2 mg STK-MED ONCE .ROUTE ; Start 04/29/18 at 10:32; Stop 04/29/18 at 10:33; Status DC Lidocaine HCl (Xylocaine-Mpf 1% 2ml Vial) 2 ml STK-MED ONCE .ROUTE ; Start 04/29 at 11:13; Stop 04/29/18 at 11:14; Status DC Heparin Sodium/ Sodium Chloride 500 ml @ As Directed STK-MED ONCE .ROUTE ; Start 04/29/18 at 11:13; Stop 04/29/18 at 11:14; Status DC Heparin Sodium (Porcine) (Heparin Sodium) 10,000 unit STK-MED ONCE .ROUTE ; Start 04/29/18 at 11:32; Stop 04/29/18 at 11:33; Status DC Verapamil HCl (Verapamil) 5 mg STK-MED ONCE .ROUTE ; Start 04/29/18 at 11:32; Stop 04/29/18 at 11:33; Status DC Nitroglycerin (Nitroglycerin) 200 mcg STK-MED ONCE .ROUTE ; Start 04/29/18 at 11 :32; Stop 04/29/18 at 11:33; Status DC Nitroglycerin (Nitroglycerin) 200 mcg 1X ONCE IART Last administered on at 11:00; Start 04/29/18 at 11:00; Stop 04/29/18 at 11:47; Status DC Verapamil HCl (Verapamil) 2.5 mg 1X ONCE IART Last administered on 04/29/18at 11:00; Start 04/29/18 at 11:00; Stop 04/29/18 at 11:47; Status DC Heparin Sodium (Porcine) (Heparin Sodium) 2,500 unit 1X ONCE IART Last administered on 04/29/18at 11:00; Start 04/29/18 at 11:00; Stop 04/29/18 at 11:47 ; Status DC Heparin Sodium/ Sodium Chloride (HEPARIN for ARTERIAL LINE FLUSH) 1,000 unit 1X ONCE IART Last administered on 04/29/18at 11:00; Start 04/29/18 at 11:00; Stop 04/29/18 at 11:47; Status DC Heparin Sodium/ Sodium Chloride (HEPARIN for ARTERIAL LINE FLUSH) 1,000 unit 1X ONCE IART Last administered on 04/29/18at 11:00; Start 04/29/18 at 11:00; Stop 04/29/18 at 11:47; Status DC Midazolam HCl (Versed) 2 mg 1X ONCE IV Last administered on 04/29/18at 11:00; Start 04/29/18 at 11:00; Stop 04/29/18 at 11:47; Status DC Fentanyl Citrate (Fentanyl 2ml Vial) 100 mcg 1X ONCE IV Last administered on 04/29/18at 11:00; Start 04/29/18 at 11:00; Stop 04/29/18 at 11:47; Status DC Iodixanol (Visipaque 320) 100 ml 1X ONCE IART Last administered on 04/29/18at 11:00; Start 04/29/18 at 11:00; Stop 04/29/18 at 11:47; Status DC Lidocaine HCl (Xylocaine-Mpf 1% 2ml Vial) 2 ml 1X ONCE INJ Last administered on 04/29/18at 11:00; Start 04/29/18 at 11:00; Stop 04/29/18 at 11:47; Status DC Tirofiban/Sodium Chloride 100 ml @ As Directed STK-MED ONCE IV ; Start at 11:56; Stop 04/29/18 at 11:57; Status DC Lidocaine HCl (Xylocaine 1% Pf 30ml Vial) 30 ml STK-MED ONCE .ROUTE ; Start 04/29/18 at 12:02; Stop 04/29/18 at 12:03; Status DC Heparin Sodium/ Sodium Chloride 500 ml @ As Directed STK-MED ONCE .ROUTE ; Start 04/29/18 at 12:17; Stop 04/29/18 at 12:18; Status DC Lidocaine HCl (Xylocaine 1% Pf 30ml Vial) 30 ml 1X ONCE INJ Last administered on 04/29/18at 12:43; Start 04/29/18 at 12:45; Stop 04/29/18 at 12:46; Status DC Heparin Sodium (Porcine) (Heparin Sodium) 2,000 unit 1X ONCE IV Last administered on 04/29/18at 12:30; Start 04/29/18 at 12:30; Stop 04/29/18 at 12:31 ; Status DC Tirofiban/Sodium Chloride 100 ml @ 0 mls/hr CONT PRN IV PER PROTOCOL Last administered on 04/29/18at 12:44; Start 04/29/18 at 12:30; Stop 04/30/18 at 06:29 Ticagrelor (Brilinta) 180 mg 1X ONCE PO Last administered on 04/29/18at 12:30; Start 04/29/18 at 12:30; Stop 04/29/18 at 12:36; Status DC Active Scripts Active Reported Zemplar (Paricalcitol) 1 Mcg Capsule 1 Mcg PO DAILY Lantus Solostar (Insulin Glargine,Hum.rec.anlog) 100 Unit/1 Ml Insuln.pen 20 Unit SQ QHS Carvedilol 6.25 Mg Tablet 6.25 Mg PO BIDWMEALS Cetirizine Hcl 10 Mg Tablet 10 Mg PO DAILY Amlodipine Besylate 5 Mg Tablet 5 Mg PO DAILY Tramadol Hcl 50 Mg Tablet 50 Mg PO Q4HRS PRN Glimepiride 1 Mg Tablet 1 Mg PO DAILY Januvia (Sitagliptin Phosphate) 50 Mg Tablet 50 Mg PO DAILY Crestor (Rosuvastatin Calcium) 20 Mg Tablet 20 Mg PO HS Vitals/I & O Vital Sign - Last 24 Hours 04/28/18 04/28/18 04/28/18 04/28/18 17:42 19:00 20:00 21:01 Temp 99.1 99.1 Pulse 83 84 Resp 18 18 B/P (MAP) 143/78 116/63 (80) Pulse Ox 99 99 O2 Delivery Nasal Cannula Room Air Room Air O2 Flow Rate 1.0 04/28/18 04/29/18 04/29/18 04/29/18 23:00 01:14 02:15 02:55 Temp 98.5 98.8 98.5 98.8 Pulse 75 56 Resp 17 20 18 17 B/P (MAP) 103/60 (74) 142/65 (90) Pulse Ox 99 99 97 O2 Delivery Nasal Cannula Nasal Cannula Nasal Cannula O2 Flow Rate 1.0 2.0 1.0 04/29/18 04/29/18 04/29/18 04/29/18 07:00 08:00 08:14 08:15 Temp 98.6 98.6 Pulse 73 73 73 Resp 17 B/P (MAP) 118/65 (82) 118/65 118/65 Pulse Ox 96 O2 Delivery Nasal Cannula Room Air O2 Flow Rate 1.0 04/29/18 04/29/18 04/29/18 04/29/18 08:16 09:33 11:00 11:00 Pulse 72 Resp 19 Pulse Ox 96 O2 Delivery Room Air Room Air O2 Flow Rate 1.0 1.0 04/29/18 04/29/18 04/29/18 04/29/18 11:00 12:45 13:10 14:07 Temp 99.0 99.0 Pulse 69 72 72 Resp 17 18 B/P (MAP) 130/64 (86) Pulse Ox 99 99 99 99 O2 Delivery Nasal Cannula Nasal Cannula Room Air Nasal Cannula O2 Flow Rate 1.0 2.0 2.0 2.0 04/29/18 14:12 Pulse 72 Pulse Ox 99 O2 Delivery Room Air Intake and Output 04/28/18 04/28/18 04/29/18 15:00 23:00 07:00 Intake Total 2083 ml Output Total 300 ml 300 ml 575 ml Balance -300 ml 1783 ml -575 ml JESSICA RUIZ MD Apr 29, 2018 15:24
[2018-04-29] MEDS: ACETAMINOPHEN 325 MG TABLET. PO PRN (19:53)
[2018-04-29] MEDS: TICAGRELOR 90 MG TABLET. PO SCH (19:53)
[2018-04-29] MEDS: ATORVASTATIN CALCIUM 40 MG TABLET. PO SCH (19:53)
[2018-04-29] MEDS: INSULIN GLARGINE 300 UNITS/3 ML INSULN.PEN. SQ SCH (22:11)
[2018-04-30] MEDS: IV NORMAL SALINE 1000ML BAG 1,000 ML IV SCH (02:15)
[2018-04-30 03:29] VITALS: BP 108/56
[2018-04-30 04:29] LABS: BASO % 0 % (0-3); EOS # 0.1 x10^3/uL (0.0-0.7); EOS % 1 % (0-3); HEMATOCRIT 30.5 % (36.0-47.0); HEMOGLOBIN 10.2 g/dL (12.0-15.5); LYMPH # 1.7 x10^3/uL (1.0-4.8); LYMPH % 18 % (24-48); MEAN CORPUSCULAR HEMOGLOBIN 28 pg (25-35); MEAN CORPUSCULAR HGB CONC 33 g/dL (31-37); MEAN CORPUSCULAR VOLUME 85 fL (79-100); MONO # 0.6 x10^3/uL (0.0-1.1); MONO % 6 % (0-9); NEUT # 6.8 x10^3uL (1.8-7.7); NEUT % 74 % (31-73); PLATELET COUNT 212 x10^3/uL (140-400); RED BLOOD COUNT 3.58 x10^6/uL (3.50-5.40); RED CELL DISTRIBUTION WIDTH 15.1 % (11.5-14.5); WHITE BLOOD COUNT 9.2 x10^3/uL (4.0-11.0)
[2018-04-30 04:48] LABS: CALCIUM 8.5 mg/dL (8.5-10.1); CREATININE 1.8 mg/dL (0.6-1.0); GFR 27.8; POTASSIUM 4.1 mmol/L (3.5-5.1)
[2018-04-30 07:00] VITALS: BP 108/91
[2018-04-30] MEDS: INSULIN LISPRO 300 UNITS/3 ML INSULN.PEN. SQ SCH ×7 (07:30→22:18)
[2018-04-30] MEDS: CETIRIZINE HCL 10 MG TABLET. PO SCH (08:25)
[2018-04-30] MEDS: ASPIRIN ENTERIC COATED 81 MG TABLET.DR. PO SCH (08:25)
[2018-04-30] MEDS: PARICALCITOL 1 MCG CAPSULE PO SCH (08:25)
[2018-04-30] MEDS: GLIMEPIRIDE 2 MG TABLET. PO SCH (08:26)
[2018-04-30] MEDS: amLODIPine BESYLATE 5 MG TABLET PO SCH (08:26)
[2018-04-30] MEDS: TICAGRELOR 90 MG TABLET. PO SCH ×2 (08:27→20:07)
[2018-04-30] MEDS: LINAGLIPTIN 5 MG TABLET PO SCH (08:27)
[2018-04-30] MEDS: CARVEDILOL 6.25 MG TABLET. PO SCH ×2 (08:28→17:26)
--- NOTE | 2018-04-30 08:36 | PDOC ---
PULMONARY PROGRESS NOTES Subjective PT SOA WITH EXERTION Vitals Vital Signs Date Time Temp Pulse Resp B/P (MAP) Pulse Ox O2 Delivery O2 Flow Rate FiO2 04/30/18 08:28 84 108/91 04/30/18 07:00 98.4 20 99 Room Air 98.4 04/29/18 18:19 1.0 ROS: No Nausea, No Chest Pain, No Abdominal Pain, No Increase Cough General: Alert, No acute distress Lungs: Crackles (one third bases) Cardiovascular: S1 Abdomen: Soft Neuro Exam: Alert Extremities: No Edema Skin: Warm Labs Laboratory Tests Test 04/28/18 11:08 04/28/18 16:39 04/28/18 20:40 04/29/18 04:05 Glucose (Fingerstick) 288 mg/dL (70-99) 166 mg/dL (70-99) 183 mg/dL (70-99) White Blood Count 10.3 x10^3/uL (4.0-11.0) Red Blood Count 3.89 x10^6/uL (3.50-5.40) Hemoglobin 11.1 g/dL (12.0-15.5) Hematocrit 33.1 % (36.0-47.0) Mean Corpuscular Volume 85 fL (79-100) Mean Corpuscular Hemoglobin 28 pg (25-35) Mean Corpuscular Hemoglobin Concent 33 g/dL (31-37) Red Cell Distribution Width 14.7 % (11.5-14.5) Platelet Count 220 x10^3/uL (140-400) Neutrophils (%) (Auto) 64 % (31-73) Lymphocytes (%) (Auto) 28 % (24-48) Monocytes (%) (Auto) 5 % (0-9) Eosinophils (%) (Auto) 2 % (0-3) Basophils (%) (Auto) 1 % (0-3) Neutrophils # (Auto) 6.6 x10^3uL (1.8-7.7) Lymphocytes # (Auto) 2.8 x10^3/uL (1.0-4.8) Monocytes # (Auto) 0.5 x10^3/uL (0.0-1.1) Eosinophils # (Auto) 0.2 x10^3/uL (0.0-0.7) Basophils # (Auto) 0.1 x10^3/uL (0.0-0.2) Heparin Anti-Xa Act, Unfractionated 0.35 IU/mL (0.30-0.70) Sodium Level 141 mmol/L (136-145) Potassium Level 4.3 mmol/L (3.5-5.1) Chloride Level 105 mmol/L (98-107) Carbon Dioxide Level 27 mmol/L (21-32) Anion Gap 9 (6-14) Blood Urea Nitrogen 30 mg/dL (7-20) Creatinine 1.9 mg/dL (0.6-1.0) Estimated GFR (Cockcroft-Gault) 26.1 Glucose Level 222 mg/dL (70-99) Calcium Level 8.5 mg/dL (8.5-10.1) Test 04/29/18 07:36 04/29/18 13:25 04/29/18 17:09 04/29/18 20:46 Glucose (Fingerstick) 163 mg/dL (70-99) 94 mg/dL (70-99) 118 mg/dL (70-99) 187 mg/dL (70-99) Test 04/30/18 04:10 04/30/18 07:50 White Blood Count 9.2 x10^3/uL (4.0-11.0) Red Blood Count 3.58 x10^6/uL (3.50-5.40) Hemoglobin 10.2 g/dL (12.0-15.5) Hematocrit 30.5 % (36.0-47.0) Mean Corpuscular Volume 85 fL (79-100) Mean Corpuscular Hemoglobin 28 pg (25-35) Mean Corpuscular Hemoglobin Concent 33 g/dL (31-37) Red Cell Distribution Width 15.1 % (11.5-14.5) Platelet Count 212 x10^3/uL (140-400) Neutrophils (%) (Auto) 74 % (31-73) Lymphocytes (%) (Auto) 18 % (24-48) Monocytes (%) (Auto) 6 % (0-9) Eosinophils (%) (Auto) 1 % (0-3) Basophils (%) (Auto) 0 % (0-3) Neutrophils # (Auto) 6.8 x10^3uL (1.8-7.7) Lymphocytes # (Auto) 1.7 x10^3/uL (1.0-4.8) Monocytes # (Auto) 0.6 x10^3/uL (0.0-1.1) Eosinophils # (Auto) 0.1 x10^3/uL (0.0-0.7) Basophils # (Auto) 0.0 x10^3/uL (0.0-0.2) Sodium Level 141 mmol/L (136-145) Potassium Level 4.1 mmol/L (3.5-5.1) Chloride Level 107 mmol/L (98-107) Carbon Dioxide Level 25 mmol/L (21-32) Anion Gap 9 (6-14) Blood Urea Nitrogen 20 mg/dL (7-20) Creatinine 1.8 mg/dL (0.6-1.0) Estimated GFR (Cockcroft-Gault) 27.8 Glucose Level 248 mg/dL (70-99) Calcium Level 8.5 mg/dL (8.5-10.1) Glucose (Fingerstick) 131 mg/dL (70-99) Laboratory Tests Test 04/29/18 13:25 04/29/18 17:09 04/29/18 20:46 04/30/18 04:10 Glucose (Fingerstick) 94 mg/dL (70-99) 118 mg/dL (70-99) 187 mg/dL (70-99) White Blood Count 9.2 x10^3/uL (4.0-11.0) Red Blood Count 3.58 x10^6/uL (3.50-5.40) Hemoglobin 10.2 g/dL (12.0-15.5) Hematocrit 30.5 % (36.0-47.0) Mean Corpuscular Volume 85 fL (79-100) Mean Corpuscular Hemoglobin 28 pg (25-35) Mean Corpuscular Hemoglobin Concent 33 g/dL (31-37) Red Cell Distribution Width 15.1 % (11.5-14.5) Platelet Count 212 x10^3/uL (140-400) Neutrophils (%) (Auto) 74 % (31-73) Lymphocytes (%) (Auto) 18 % (24-48) Monocytes (%) (Auto) 6 % (0-9) Eosinophils (%) (Auto) 1 % (0-3) Basophils (%) (Auto) 0 % (0-3) Neutrophils # (Auto) 6.8 x10^3uL (1.8-7.7) Lymphocytes # (Auto) 1.7 x10^3/uL (1.0-4.8) Monocytes # (Auto) 0.6 x10^3/uL (0.0-1.1) Eosinophils # (Auto) 0.1 x10^3/uL (0.0-0.7) Basophils # (Auto) 0.0 x10^3/uL (0.0-0.2) Sodium Level 141 mmol/L (136-145) Potassium Level 4.1 mmol/L (3.5-5.1) Chloride Level 107 mmol/L (98-107) Carbon Dioxide Level 25 mmol/L (21-32) Anion Gap 9 (6-14) Blood Urea Nitrogen 20 mg/dL (7-20) Creatinine 1.8 mg/dL (0.6-1.0) Estimated GFR (Cockcroft-Gault) 27.8 Glucose Level 248 mg/dL (70-99) Calcium Level 8.5 mg/dL (8.5-10.1) Test 04/30/18 07:50 Glucose (Fingerstick) 131 mg/dL (70-99) Medications Active Scripts Medications Dose Route/Sig Max Daily Dose Days Date Category Zemplar (Paricalcitol) 1 Mcg Capsule 1 Mcg PO DAILY 04/25/18 Reported Lantus Solostar (Insulin Glargine,Hum.rec.anlog) 100 Unit/1 Ml Insuln.pen 20 Unit SQ QHS 04/25/18 Reported Carvedilol 6.25 Mg Tablet 6.25 Mg PO BIDWMEALS 04/25/18 Reported Cetirizine Hcl 10 Mg Tablet 10 Mg PO DAILY 04/25/18 Reported Amlodipine Besylate 5 Mg Tablet 5 Mg PO DAILY 04/25/18 Reported Tramadol Hcl 50 Mg Tablet 50 Mg PO Q4HRS PRN 04/25/18 Reported Glimepiride 1 Mg Tablet 1 Mg PO DAILY 04/25/18 Reported Januvia (Sitagliptin Phosphate) 50 Mg Tablet 50 Mg PO DAILY 04/25/18 Reported Crestor (Rosuvastatin Calcium) 20 Mg Tablet 20 Mg PO HS 04/25/18 Reported Comments HRCT CHEST 1. Minimal bibasilar prominent interstitial lung markings could be scarring or fibrosis. No evidence of honeycombing or traction bronchiectasis. 2. Stable pulmonary nodules. 3. Hepatic steatosis. Electronically signed by: Mansoor Marinelli MD (04/27/2018 12:29 PM) [facility] Impression . 1. Substernal chest pain WORK UP PER CARD SEE CATH REPORT 2. Persistent crackles ON EXAM SUSPECT PULMONARY EDEMA POSSIBLE EARLY FIBROSIS. CT OF CHEST NO EVIDENCE OF FIBROSIS 3. No significant history of tobacco use. No history of asthma. 4. CP with exertion/ No pulmonary HTN on echo. suspect unstable angina. CATH 04/29 Conclusion 1. Elevated left ventricualr filling pressures consistent with mild acute on chronic decompensated HF. LVEDP 18 mm Hg 2. Two vessel CAD 3. Negative iFR of the LAD at 0.90 4. Successful PCI of the Lcx with a Resolute 2.5/15 mm ROZ. Recommendations ASA 81mg daily indefinitely Ticagrelor 90mg bid x 3 months and then switch to Plavix 75mg daily High dose statin therapy Cardiac rehab referral. Conclusion 1. Elevated left ventricualr filling pressures consistent with mild acute on chronic decompensated HF. LVEDP 18 mm Hg 2. Two vessel CAD 3. Negative iFR of the LAD at 0.90 4. Successful PCI of the Lcx with a Resolute 2.5/15 mm ROZ. Recommendations ASA 81mg daily indefinitely Ticagrelor 90mg bid x 3 months and then switch to Plavix 75mg daily High dose statin therapy Cardiac rehab referral. Plan . 6 MIN WALK FOLLOW UP WITH DR YUSUF OUT PT FOR POSSIBLE AUTOIMMUNE WORK UP PFT OUT PT SERA ARAYA MD Apr 30, 2018 08:36
--- NOTE | 2018-04-30 09:34 | PDOC ---
CARDIO Progress Notes Date and Time Date of Service 04/30/18 Time of Evaluation 0999 Subjective Subjective: No Chest Pain, No shortness of breath, No Palpitations Vitals Vitals Vital Signs Date Time Temp Pulse Resp B/P (MAP) Pulse Ox O2 Delivery O2 Flow Rate FiO2 04/30/18 08:28 84 108/91 04/30/18 07:00 98.4 20 99 Room Air 98.4 04/29/18 18:19 1.0 Weight Weight [ ] Input and Output Intake and Output Intake and Output 04/30/18 07:00 Intake Total 2680 ml Output Total 2400 ml Balance 280 ml Intake Oral 1500 ml IV Total 1180 ml Output Urine Total 2400 ml Laboratory Labs Laboratory Tests Test 04/29/18 13:25 04/29/18 17:09 04/29/18 20:46 04/30/18 04:10 Glucose (Fingerstick) 94 mg/dL (70-99) 118 mg/dL (70-99) 187 mg/dL (70-99) White Blood Count 9.2 x10^3/uL (4.0-11.0) Red Blood Count 3.58 x10^6/uL (3.50-5.40) Hemoglobin 10.2 g/dL (12.0-15.5) Hematocrit 30.5 % (36.0-47.0) Mean Corpuscular Volume 85 fL (79-100) Mean Corpuscular Hemoglobin 28 pg (25-35) Mean Corpuscular Hemoglobin Concent 33 g/dL (31-37) Red Cell Distribution Width 15.1 % (11.5-14.5) Platelet Count 212 x10^3/uL (140-400) Neutrophils (%) (Auto) 74 % (31-73) Lymphocytes (%) (Auto) 18 % (24-48) Monocytes (%) (Auto) 6 % (0-9) Eosinophils (%) (Auto) 1 % (0-3) Basophils (%) (Auto) 0 % (0-3) Neutrophils # (Auto) 6.8 x10^3uL (1.8-7.7) Lymphocytes # (Auto) 1.7 x10^3/uL (1.0-4.8) Monocytes # (Auto) 0.6 x10^3/uL (0.0-1.1) Eosinophils # (Auto) 0.1 x10^3/uL (0.0-0.7) Basophils # (Auto) 0.0 x10^3/uL (0.0-0.2) Sodium Level 141 mmol/L (136-145) Potassium Level 4.1 mmol/L (3.5-5.1) Chloride Level 107 mmol/L (98-107) Carbon Dioxide Level 25 mmol/L (21-32) Anion Gap 9 (6-14) Blood Urea Nitrogen 20 mg/dL (7-20) Creatinine 1.8 mg/dL (0.6-1.0) Estimated GFR (Cockcroft-Gault) 27.8 Glucose Level 248 mg/dL (70-99) Calcium Level 8.5 mg/dL (8.5-10.1) Test 04/30/18 07:50 Glucose (Fingerstick) 131 mg/dL (70-99) Microbiology Micro Microbiology 04/25/18 Urine Culture - Final, Complete 04/25/18 Urine Culture Result 1 (ELVIS) - Final, Complete Review of Systems Constitutional: yes: malaise, weakness, alert, oriented Ears/Nose/Throat: Yes: no symptom reported Eyes: Yes: no symptom reported Pulmonary: Yes no symptom reported Cardiovascular: Yes chest pain Gastrointestional: Yes: no symptom reported Genitourinary: Yes: no symptom reported Musculoskeletal: Yes: no symptom reported Skin: Yes no symptom reported Psychiatric/Neurological: Yes: no symptom reported Endocrine: Yes: no symptom reported Physical Exam HEENT: Neck Supple W Full Motion Chest: Symmetric LUNGS: Other (diminished bases) Heart: S1S2, RRR (SR) Abdomen: Soft N/T Extremities: No Calf Tenderness, Other (1+ bilateral LE pitting edema) Neurology: alert, oriented, follow commands Assessment Assessment 1. NSTEMI 2. CAD; cath revealed two-vessel disease. s/p PCI/ROZ to LCx. LAD stenosis insignificant based upon iFR. 3. Acute on chronic diastolic HF 4. SEJAL on CKD; 24-hr urine in process 5. Hypertension 6. Dyslipidemia 7. Diabetes,II; uncontrolled Recommendations Stop IV fluids. Diuresis if okay with nephrology Secondary prevention measures DAPT with ASA and Ticagrelor- switch to ASA and Plavix after 3 months. Risk stratification modification Cardiac rehab referral. Follow up in our office in 4 weeks as scheduled. JESSICA ISRAEL APRN Apr 30, 2018 09:34
--- NOTE | 2018-04-30 10:28 | PDOC ---
SUBJECTIVE ROS Follow-up for CK D stage IV Denies any new complaints today. She thinks her edema is better. She was not orthopneic, she does have mild dyspnea on exertion though. CVS: no Orthopnea, no CP RESP: no SOB, min CHRISTINE GI: no Nausea, no Vomiting : no Dysuria, no Urgency OBJECTIVE Vital Signs Vital Signs Date Time Temp Pulse Resp B/P (MAP) Pulse Ox O2 Delivery O2 Flow Rate FiO2 04/30/18 08:28 84 108/91 04/30/18 07:00 98.4 20 99 Room Air 98.4 04/29/18 18:19 1.0 I & 0 Intake and Output 04/30/18 07:00 Intake Total 2680 ml Output Total 2400 ml Balance 280 ml Intake Oral 1500 ml IV Total 1180 ml Output Urine Total 2400 ml PHYSICAL EXAM Physical Exam GEN: Awake, Oriented x 3, In no distress EYES: Vision Unchanged, Conjunctiva Normal EN: No EN Drainage, Mucous Membranes moist NECK: no JVD, min JVP, Supple, no Thyromegaly CVS: S1S2, ? soft Murmur, No Gallop, No Rub, no Edema RESP: no Rales, no Rhonchi,no Acc. Muscle Use GI: BS + ve, NO Bruit, Non Tender, Non Distended : no CVA tenderness, no Suprapubic Tenderness DIAGNOSIS/ASSESSMENT Assessment & Plan CK D stage 4 at current levels. Presumably a result of diabetic hypertensive nephrosclerosis and renal atrophy is noted on CT scan. Current fluid and E- lyte status does not necessitate emergent need for dialysis. Await 24-hour urine collection. This can be followed up as an outpatient Angina: Now status post stenting Dyspnea on exertion: LVEDP was noted to be 18. Could resume diuresis tomorrow ( 48 hours post catheter). It should however be noted that patient has been a poorly controlled diabetic as reflected by her A1c. She may have a tendency to dehydration due to the same anyways, especially if she returns to her previous ways Marginal anemia ANEMIA; presumably dilutional. Follow-up as outpatient. Defer to PCP to update colonoscopy if deemed necessary HTN: Current BP meds as reviewed. Defer to cardiology to optimize after left heart catheter Possible proteinuria: We'll quantitated with 24-hour urine collection Poorly controlled diabetes: Discussion as above Hepatic steatosis as noted on CT scan: This could be a risk factor for chronic kidney disease. Discussed Plan of Care with patient at bedside: Patient will follow-up with Dr. Chavis in our practice at discharge COMMENT/RELEVANT DATA Meds Current Medications Medications (Trade) Dose Ordered Sig/Gerald Start Time Stop Time Status Last Admin Dose Admin Acetaminophen (Tylenol) 650 mg PRN Q4HRS PRN 04/28/18 13:45 04/29/18 19:53 650 MG Amlodipine Besylate (Norvasc) 5 mg DAILY 04/25/18 13:00 04/30/18 08:26 5 MG Aspirin (Ecotrin) 81 mg DAILYWBKFT 04/26/18 08:00 04/30/18 08:25 81 MG Atorvastatin Calcium (Lipitor) 40 mg QHS 04/25/18 21:00 04/29/18 19:53 40 MG Carvedilol (Coreg) 6.25 mg BIDWMEALS 04/25/18 17:00 04/30/18 08:28 6.25 MG Cetirizine HCl (ZyrTEC) 10 mg DAILY 04/26/18 09:00 04/30/18 08:25 10 MG Dextrose (Dextrose 50%-Water Syringe) 12.5 gm PRN Q15MIN PRN 04/25/18 12:15 UNV Enoxaparin Sodium (Lovenox 60mg Syringe) 60 mg 1X ONCE 04/26/18 16:00 04/26/18 16:01 DC 04/26/18 18:06 60 MG Fentanyl Citrate (Fentanyl 2ml Vial) 100 mcg 1X ONCE 04/29/18 11:00 04/29/18 11:47 DC 04/29/18 11:00 100 MCG Glimepiride (Amaryl) 1 mg DAILY 04/26/18 09:00 04/30/18 08:26 1 MG Heparin Sodium (Porcine) (Heparin Sodium) 2,000 unit 1X ONCE 04/29/18 12:30 04/29/18 12:31 DC 04/29/18 12:30 2,000 UNIT Heparin Sodium/ Dextrose 500 ml @ 0 mls/hr CONT PRN 04/27/18 11:30 04/28/18 22:32 14.4 MLS/HR Heparin Sodium/ Sodium Chloride 500 ml @ As Directed STK-MED ONCE 04/29/18 12:17 04/29/18 12:18 DC Heparin Sodium/ Sodium Chloride (HEPARIN for ARTERIAL LINE FLUSH) 1,000 unit 1X ONCE 04/29/18 11:00 04/29/18 11:47 DC 04/29/18 11:00 1,000 UNIT Insulin Glargine (Lantus) 25 units QHS 04/27/18 21:00 04/29/18 22:11 25 UNITS Insulin Human Lispro (HumaLOG) 10 units TIDAC 04/28/18 11:30 04/28/18 17:44 10 UNITS Insulin Human Regular (HumuLIN R VIAL) 8 unit 1X ONCE 04/25/18 10:30 04/25/18 10:31 DC 04/25/18 10:51 8 UNIT Iodixanol (Visipaque 320) 100 ml 1X ONCE 04/29/18 11:00 04/29/18 11:47 DC 04/29/18 11:00 63 ML Labetalol HCl (Normodyne Iv Push) 20 mg PRN Q2HR PRN 04/25/18 12:45 Lidocaine HCl (Xylocaine 1% Pf 30ml Vial) 30 ml 1X ONCE 04/29/18 12:45 04/29/18 12:46 DC 04/29/18 12:43 10 ML Lidocaine HCl (Xylocaine-Mpf 1% 2ml Vial) 2 ml 1X ONCE 04/29/18 11:00 04/29/18 11:47 DC 04/29/18 11:00 2 ML Linagliptin (Tradjenta) 5 mg DAILY 04/26/18 09:00 04/30/18 08:27 5 MG Midazolam HCl (Versed) 2 mg 1X ONCE 04/29/18 11:00 04/29/18 11:47 DC 04/29/18 11:00 2 MG Morphine Sulfate (Morphine Sulfate) 2 mg PRN Q4HRS PRN 04/28/18 13:45 04/28/18 13:55 2 MG Nitroglycerin (Nitroglycerin) 200 mcg 1X ONCE 04/29/18 11:00 04/29/18 11:47 DC 04/29/18 11:00 600 MCG Nitroglycerin (Nitrostat) 0.4 mg PRN Q5MIN PRN 04/27/18 13:00 04/27/18 13:28 0.4 MG Ondansetron HCl (Zofran) 4 mg PRN Q8HRS PRN 04/25/18 10:30 04/26/18 10:29 DC 04/25/18 17:15 4 MG Paricalcitol (Zemplar) 1 mcg DAILY 04/26/18 09:00 04/30/18 08:25 1 MCG Sodium Chloride 1,000 ml @ 75 mls/hr [id number] 04/28/18 10:15 04/30/18 10:19 DC 04/28/18 22:47 75 MLS/HR Ticagrelor (Brilinta) 90 mg BID 04/29/18 21:00 04/30/18 08:27 90 MG Tirofiban/Sodium Chloride 100 ml @ 0 mls/hr CONT PRN 04/29/18 12:30 04/30/18 06:29 DC 04/29/18 12:44 5.8 MLS/HR Tramadol HCl (Ultram) 50 mg PRN Q4HRS PRN 04/25/18 16:45 04/29/18 22:04 50 MG Verapamil HCl (Verapamil) 2.5 mg 1X ONCE 04/29/18 11:00 04/29/18 11:47 DC 04/29/18 11:00 5 MG Lab Laboratory Tests Test 04/29/18 13:25 04/29/18 17:09 04/29/18 20:46 04/30/18 04:10 Glucose (Fingerstick) 94 mg/dL (70-99) 118 mg/dL (70-99) 187 mg/dL (70-99) White Blood Count 9.2 x10^3/uL (4.0-11.0) Red Blood Count 3.58 x10^6/uL (3.50-5.40) Hemoglobin 10.2 g/dL (12.0-15.5) Hematocrit 30.5 % (36.0-47.0) Mean Corpuscular Volume 85 fL (79-100) Mean Corpuscular Hemoglobin 28 pg (25-35) Mean Corpuscular Hemoglobin Concent 33 g/dL (31-37) Red Cell Distribution Width 15.1 % (11.5-14.5) Platelet Count 212 x10^3/uL (140-400) Neutrophils (%) (Auto) 74 % (31-73) Lymphocytes (%) (Auto) 18 % (24-48) Monocytes (%) (Auto) 6 % (0-9) Eosinophils (%) (Auto) 1 % (0-3) Basophils (%) (Auto) 0 % (0-3) Neutrophils # (Auto) 6.8 x10^3uL (1.8-7.7) Lymphocytes # (Auto) 1.7 x10^3/uL (1.0-4.8) Monocytes # (Auto) 0.6 x10^3/uL (0.0-1.1) Eosinophils # (Auto) 0.1 x10^3/uL (0.0-0.7) Basophils # (Auto) 0.0 x10^3/uL (0.0-0.2) Sodium Level 141 mmol/L (136-145) Potassium Level 4.1 mmol/L (3.5-5.1) Chloride Level 107 mmol/L (98-107) Carbon Dioxide Level 25 mmol/L (21-32) Anion Gap 9 (6-14) Blood Urea Nitrogen 20 mg/dL (7-20) Creatinine 1.8 mg/dL (0.6-1.0) Estimated GFR (Cockcroft-Gault) 27.8 Glucose Level 248 mg/dL (70-99) Calcium Level 8.5 mg/dL (8.5-10.1) Test 04/30/18 07:50 Glucose (Fingerstick) 131 mg/dL (70-99) Results All relevant outside records, renal labs, imaging studies, telemetry/EKG's were reviewed. JAMILA KHAN MD Apr 30, 2018 10:28
[2018-04-30 11:00] VITALS: BP 121/63
[2018-04-30] MEDS ORDERED: ASPI-612 PO (14:31)
[2018-04-30] MEDS ORDERED: INSU100I13 SQ (14:31)
[2018-04-30] MEDS ORDERED: ATOR40TA59 PO (14:31)
[2018-04-30] MEDS ORDERED: TICA90TA PO (14:31)
--- NOTE | 2018-04-30 14:37 | PDOC3 ---
Discharge Summary [facility] Date of Admission: Apr 25, 2018 Discharge Date: Apr 30, 2018 Admitting Diagnosis Chest pain, NSTEMI, poST cath PCI Lcx 04/29 Uncontrolled DM2 SEJAL , vasomotor CKD3 H/o Hyperlipidemia H/o HTN Final Diagnosis CONSULTS renal card Brief Hospital Course Ms. Garcia is a 72 old F, dm2, ckd, comes for chest pain, was found high Trop, t wave change, and then got cath, 1 stent at Lcx. Cr was found high at 2.2, better to 1.8. 24h urine protein collected. pt feels good now, no chest pain, or sob. dc home with asa, brilinta, then switch to plavix after 3ms as per card. fu with uro for CKD. lantus increased to 25u qhs. dc time 35min. General: Oriented X3, Cooperative, mild distress Heart: Regular rate (SR), Normal S1, Normal S2, Other (2/6 systolic murmur to LLS border) Lungs: Crackles (one third bases) Abdomen: Soft, No tenderness Extremities: No cyanosis, Other (trace LE edema) Skin: No breakdown, No significant lesion Patient History: Patient reports no known family medical history. Disposition home CONDITION AT DISCHARGE: Improved Scheduled Amlodipine Besylate (Amlodipine Besylate), 5 MG PO DAILY, (Reported) Aspirin (Aspirin Ec), 81 MG PO DAILYWBKFT Atorvastatin Calcium (Atorvastatin Calcium), 40 MG PO QHS Carvedilol (Carvedilol), 6.25 MG PO BIDWMEALS, (Reported) Cetirizine Hcl (Cetirizine Hcl), 10 MG PO DAILY, (Reported) Glimepiride (Glimepiride), 1 MG PO DAILY, (Reported) Insulin Glargine,Hum.rec.anlog (Lantus Solostar), 25 UNITS SQ QHS Paricalcitol (Zemplar), 1 MCG PO DAILY, (Reported) Sitagliptin Phosphate (Januvia), 50 MG PO DAILY, (Reported) Ticagrelor (Brilinta), 90 MG PO BID Scheduled PRN Tramadol Hcl (Tramadol Hcl), 50 MG PO Q4HRS PRN for PAIN, (Reported) Discontinued Medications Insulin Glargine,Hum.rec.anlog (Lantus Solostar), 20 UNIT SQ QHS, (Reported) Rosuvastatin Calcium (Crestor), 20 MG PO HS, (Reported) JESSICA RUIZ MD Apr 30, 2018 14:37
[2018-04-30 15:00] VITALS: BP 136/70
[2018-04-30 19:15] VITALS: BP 119/68
[2018-04-30] MEDS: ACETAMINOPHEN 325 MG TABLET. PO PRN (20:07)
[2018-04-30] MEDS: ATORVASTATIN CALCIUM 40 MG TABLET. PO SCH (20:07)
[2018-04-30] MEDS: INSULIN GLARGINE 300 UNITS/3 ML INSULN.PEN. SQ SCH (22:19)
[2018-04-30 22:35] VITALS: BP 135/72
[2018-05-01 02:50] VITALS: BP 116/56
[2018-05-01 06:10] LABS: BASO # 0.1 x10^3/uL (0.0-0.2); BASO % 1 % (0-3); EOS # 0.2 x10^3/uL (0.0-0.7); EOS % 2 % (0-3); HEMATOCRIT 35.5 % (36.0-47.0); HEMOGLOBIN 11.5 g/dL (12.0-15.5); LYMPH # 1.9 x10^3/uL (1.0-4.8); LYMPH % 19 % (24-48); MEAN CORPUSCULAR HEMOGLOBIN 28 pg (25-35); MEAN CORPUSCULAR HGB CONC 33 g/dL (31-37); MEAN CORPUSCULAR VOLUME 85 fL (79-100); MONO # 0.8 x10^3/uL (0.0-1.1); MONO % 8 % (0-9); NEUT % 70 % (31-73); PLATELET COUNT 257 x10^3/uL (140-400); RED BLOOD COUNT 4.16 x10^6/uL (3.50-5.40); RED CELL DISTRIBUTION WIDTH 15.1 % (11.5-14.5); WHITE BLOOD COUNT 9.9 x10^3/uL (4.0-11.0)
[2018-05-01 06:23] LABS: CALCIUM 9.3 mg/dL (8.5-10.1); GFR 24.6; POTASSIUM 3.8 mmol/L (3.5-5.1)
[2018-05-01 07:00] VITALS: BP 92/70
--- NOTE | 2018-05-01 09:33 | PDOC ---
JESSICA ISRAEL FERNANDO 05/01/18 0932: CARDIO Progress Notes Date and Time Date of Service 05/01/18 Time of Evaluation 0930 Subjective Subjective: No Chest Pain, No shortness of breath, No Palpitations, Other (c/o bilateral LE tightness,swelling, and pain) Vitals Vitals Vital Signs Date Time Temp Pulse Resp B/P (MAP) Pulse Ox O2 Delivery O2 Flow Rate FiO2 05/01/18 07:00 98.0 80 18 92/70 (77) 98 Room Air 98.0 Weight Weight [ ] Input and Output Intake and Output Intake and Output 05/01/18 07:00 Intake Total 1600 ml Output Total 1300 ml Balance 300 ml Intake Oral 1600 ml Output Urine Total 1300 ml Laboratory Labs Laboratory Tests Test 04/30/18 11:51 04/30/18 17:23 04/30/18 20:41 05/01/18 05:40 Glucose (Fingerstick) 205 mg/dL (70-99) 181 mg/dL (70-99) 206 mg/dL (70-99) White Blood Count 9.9 x10^3/uL (4.0-11.0) Red Blood Count 4.16 x10^6/uL (3.50-5.40) Hemoglobin 11.5 g/dL (12.0-15.5) Hematocrit 35.5 % (36.0-47.0) Mean Corpuscular Volume 85 fL (79-100) Mean Corpuscular Hemoglobin 28 pg (25-35) Mean Corpuscular Hemoglobin Concent 33 g/dL (31-37) Red Cell Distribution Width 15.1 % (11.5-14.5) Platelet Count 257 x10^3/uL (140-400) Neutrophils (%) (Auto) 70 % (31-73) Lymphocytes (%) (Auto) 19 % (24-48) Monocytes (%) (Auto) 8 % (0-9) Eosinophils (%) (Auto) 2 % (0-3) Basophils (%) (Auto) 1 % (0-3) Neutrophils # (Auto) 7.0 x10^3uL (1.8-7.7) Lymphocytes # (Auto) 1.9 x10^3/uL (1.0-4.8) Monocytes # (Auto) 0.8 x10^3/uL (0.0-1.1) Eosinophils # (Auto) 0.2 x10^3/uL (0.0-0.7) Basophils # (Auto) 0.1 x10^3/uL (0.0-0.2) Sodium Level 142 mmol/L (136-145) Potassium Level 3.8 mmol/L (3.5-5.1) Chloride Level 106 mmol/L (98-107) Carbon Dioxide Level 27 mmol/L (21-32) Anion Gap 9 (6-14) Blood Urea Nitrogen 21 mg/dL (7-20) Creatinine 2.0 mg/dL (0.6-1.0) Estimated GFR (Cockcroft-Gault) 24.6 Glucose Level 98 mg/dL (70-99) Calcium Level 9.3 mg/dL (8.5-10.1) Test 05/01/18 07:35 Glucose (Fingerstick) 87 mg/dL (70-99) Microbiology Micro Microbiology 04/25/18 Urine Culture - Final, Complete 04/25/18 Urine Culture Result 1 (ELVIS) - Final, Complete Review of Systems Constitutional: yes: malaise, weakness, alert, oriented Ears/Nose/Throat: Yes: no symptom reported Eyes: Yes: no symptom reported Pulmonary: Yes no symptom reported Cardiovascular: Yes chest pain Gastrointestional: Yes: no symptom reported Genitourinary: Yes: no symptom reported Musculoskeletal: Yes: no symptom reported Skin: Yes no symptom reported Psychiatric/Neurological: Yes: no symptom reported Endocrine: Yes: no symptom reported Physical Exam HEENT: Neck Supple W Full Motion Chest: Symmetric LUNGS: Other (diminished bases) Heart: S1S2, RRR (SR) Abdomen: Soft N/T Extremities: No Calf Tenderness, Other (1-2+ bilateral LE pitting edema) Neurology: alert, oriented, follow commands Assessment Assessment 1. NSTEMI 2. CAD; cath revealed two-vessel disease. s/p PCI/ROZ to LCx. 3. Acute on chronic diastolic HF 4. SEJAL on CKD 5. Hypertension 6. Dyslipidemia 7. Diabetes,II; uncontrolled Recommendations Diuresis this am Plan for discharge later this afternoon No diuresis needed for discharge F/u in our office with Dr. Tapia in 1 month as scheduled JEREMY TAPIA MD 05/01/18 1816: CARDIO Progress Notes Plan Plan Pt. seen and examined. Agree with above [employer]GER note. No significant edema after gentle diuresis Home on low dose diuretic prn for lower ext edema. continue asa, ticagrelor Supportive care. Will f/u in the office in 4 weeks or so. Noted lower ext duplex results. Thanks JESSICA ISRAEL APRN May 01, 2018 09:32 JEREMY TAPIA MD May 01, 2018 18:16
[2018-05-01] MEDS ORDERED: FUROSEMIDE 40 MG/4 ML VIAL. IVP ONE (09:45)
[2018-05-01] MEDS ORDERED: POTASSIUM CHLORIDE 10 MEQ TABLET.ER. PO ONE (09:45)
[2018-05-01] MEDS: ASPIRIN ENTERIC COATED 81 MG TABLET.DR. PO SCH (10:45)
[2018-05-01] MEDS: GLIMEPIRIDE 2 MG TABLET. PO SCH (10:46)
[2018-05-01] MEDS: traMADol 50 MG TABLET PO PRN (10:46)
[2018-05-01] MEDS: TICAGRELOR 90 MG TABLET. PO SCH (10:46)
[2018-05-01] MEDS: PARICALCITOL 1 MCG CAPSULE PO SCH (10:46)
[2018-05-01] MEDS: LINAGLIPTIN 5 MG TABLET PO SCH (10:46)
[2018-05-01] MEDS: CETIRIZINE HCL 10 MG TABLET. PO SCH (10:47)
[2018-05-01] MEDS: CARVEDILOL 6.25 MG TABLET. PO SCH ×2 (10:47→17:51)
[2018-05-01] MEDS: amLODIPine BESYLATE 5 MG TABLET PO SCH (10:47)
--- NOTE | 2018-05-01 10:48 | PDOC ---
SUBJECTIVE ROS Stable OBJECTIVE Vital Signs Vital Signs Date Time Temp Pulse Resp B/P (MAP) Pulse Ox O2 Delivery O2 Flow Rate FiO2 05/01/18 07:00 98.0 80 18 92/70 (77) 98 Room Air 98.0 I & 0 Intake and Output 05/01/18 07:00 Intake Total 1600 ml Output Total 1300 ml Balance 300 ml Intake Oral 1600 ml Output Urine Total 1300 ml PHYSICAL EXAM Physical Exam HEENT: Neck Supple LUNGS: CTA bilat, Non labored Heart: S1S2, RRR (SR) Abdomen: Soft N/T Extremities: (1+ bilateral LE pitting edema Neurology: alert, oriented, follow commands DIAGNOSIS/ASSESSMENT Assessment & Plan CK D stage 4 - Presumably a result of diabetic hypertensive nephrosclerosis and renal atrophy is noted on CT scan. Current fluid and E-lyte status does not necessitate emergent need for dialysis. 24-hour urine collection pending Angina: Now status post stenting Dyspnea on exertion: LVEDP was noted to be 18. Recd IV Lasix for edema of feet ANEMIA Stable NSTEMI CAD; cath revealed two-vessel disease. s/p PCI/ROZ to LCx. HTN: Cardiology managing Poorly controlled diabetes: Hepatic steatosis as noted on CT scan Discussed Plan of Care with patient and RN follow-up with me after dc COMMENT/RELEVANT DATA Meds Current Medications Medications (Trade) Dose Ordered Sig/Gerald Start Time Stop Time Status Last Admin Dose Admin Acetaminophen (Tylenol) 650 mg PRN Q4HRS PRN 04/28/18 13:45 04/30/18 20:07 650 MG Amlodipine Besylate (Norvasc) 5 mg DAILY 04/25/18 13:00 04/30/18 08:26 5 MG Aspirin (Ecotrin) 81 mg DAILYWBKFT 04/26/18 08:00 04/30/18 08:25 81 MG Atorvastatin Calcium (Lipitor) 40 mg QHS 04/25/18 21:00 04/30/18 20:07 40 MG Carvedilol (Coreg) 6.25 mg BIDWMEALS 04/25/18 17:00 04/30/18 17:26 6.25 MG Cetirizine HCl (ZyrTEC) 10 mg DAILY 04/26/18 09:00 04/30/18 08:25 10 MG Dextrose (Dextrose 50%-Water Syringe) 12.5 gm PRN Q15MIN PRN 04/25/18 12:15 UNV Enoxaparin Sodium (Lovenox 60mg Syringe) 60 mg 1X ONCE 04/26/18 16:00 04/26/18 16:01 DC 04/26/18 18:06 60 MG Fentanyl Citrate (Fentanyl 2ml Vial) 100 mcg 1X ONCE 04/29/18 11:00 04/29/18 11:47 DC 04/29/18 11:00 100 MCG Furosemide (Lasix) 40 mg 1X ONCE 05/01/18 09:45 05/01/18 09:46 DC Glimepiride (Amaryl) 1 mg DAILY 04/26/18 09:00 04/30/18 08:26 1 MG Heparin Sodium (Porcine) (Heparin Sodium) 2,000 unit 1X ONCE 04/29/18 12:30 04/29/18 12:31 DC 04/29/18 12:30 2,000 UNIT Heparin Sodium/ Dextrose 500 ml @ 0 mls/hr CONT PRN 04/27/18 11:30 04/30/18 10:58 DC 04/28/18 22:32 14.4 MLS/HR Heparin Sodium/ Sodium Chloride 500 ml @ As Directed STK-MED ONCE 04/29/18 12:17 04/29/18 12:18 DC Heparin Sodium/ Sodium Chloride (HEPARIN for ARTERIAL LINE FLUSH) 1,000 unit 1X ONCE 04/29/18 11:00 04/29/18 11:47 DC 04/29/18 11:00 1,000 UNIT Insulin Glargine (Lantus) 25 units QHS 04/27/18 21:00 04/30/18 22:19 25 UNITS Insulin Human Lispro (HumaLOG) 10 units TIDAC 04/28/18 11:30 04/30/18 17:32 6 UNITS Insulin Human Regular (HumuLIN R VIAL) 8 unit 1X ONCE 04/25/18 10:30 04/25/18 10:31 DC 04/25/18 10:51 8 UNIT Iodixanol (Visipaque 320) 100 ml 1X ONCE 04/29/18 11:00 04/29/18 11:47 DC 04/29/18 11:00 63 ML Labetalol HCl (Normodyne Iv Push) 20 mg PRN Q2HR PRN 04/25/18 12:45 Lidocaine HCl (Xylocaine 1% Pf 30ml Vial) 30 ml 1X ONCE 04/29/18 12:45 04/29/18 12:46 DC 04/29/18 12:43 10 ML Lidocaine HCl (Xylocaine-Mpf 1% 2ml Vial) 2 ml 1X ONCE 04/29/18 11:00 04/29/18 11:47 DC 04/29/18 11:00 2 ML Linagliptin (Tradjenta) 5 mg DAILY 04/26/18 09:00 04/30/18 08:27 5 MG Midazolam HCl (Versed) 2 mg 1X ONCE 04/29/18 11:00 04/29/18 11:47 DC 04/29/18 11:00 2 MG Morphine Sulfate (Morphine Sulfate) 2 mg PRN Q4HRS PRN 04/28/18 13:45 04/28/18 13:55 2 MG Nitroglycerin (Nitroglycerin) 200 mcg 1X ONCE 04/29/18 11:00 04/29/18 11:47 DC 04/29/18 11:00 600 MCG Nitroglycerin (Nitrostat) 0.4 mg PRN Q5MIN PRN 04/27/18 13:00 04/27/18 13:28 0.4 MG Ondansetron HCl (Zofran) 4 mg PRN Q8HRS PRN 04/25/18 10:30 04/26/18 10:29 DC 04/25/18 17:15 4 MG Paricalcitol (Zemplar) 1 mcg DAILY 04/26/18 09:00 04/30/18 08:25 1 MCG Potassium Chloride (Klor-Con) 10 meq 1X ONCE 05/01/18 09:45 05/01/18 09:46 DC Sodium Chloride 1,000 ml @ 75 mls/hr [id number] 04/28/18 10:15 04/30/18 10:19 DC 04/28/18 22:47 75 MLS/HR Ticagrelor (Brilinta) 90 mg BID 04/29/18 21:00 04/30/18 20:07 90 MG Tirofiban/Sodium Chloride 100 ml @ 0 mls/hr CONT PRN 04/29/18 12:30 04/30/18 06:29 DC 04/29/18 12:44 5.8 MLS/HR Tramadol HCl (Ultram) 50 mg PRN Q4HRS PRN 04/25/18 16:45 04/29/18 22:04 50 MG Verapamil HCl (Verapamil) 2.5 mg 1X ONCE 04/29/18 11:00 04/29/18 11:47 DC 04/29/18 11:00 5 MG Lab Laboratory Tests Test 04/30/18 11:51 04/30/18 17:23 04/30/18 20:41 05/01/18 05:40 Glucose (Fingerstick) 205 mg/dL (70-99) 181 mg/dL (70-99) 206 mg/dL (70-99) White Blood Count 9.9 x10^3/uL (4.0-11.0) Red Blood Count 4.16 x10^6/uL (3.50-5.40) Hemoglobin 11.5 g/dL (12.0-15.5) Hematocrit 35.5 % (36.0-47.0) Mean Corpuscular Volume 85 fL (79-100) Mean Corpuscular Hemoglobin 28 pg (25-35) Mean Corpuscular Hemoglobin Concent 33 g/dL (31-37) Red Cell Distribution Width 15.1 % (11.5-14.5) Platelet Count 257 x10^3/uL (140-400) Neutrophils (%) (Auto) 70 % (31-73) Lymphocytes (%) (Auto) 19 % (24-48) Monocytes (%) (Auto) 8 % (0-9) Eosinophils (%) (Auto) 2 % (0-3) Basophils (%) (Auto) 1 % (0-3) Neutrophils # (Auto) 7.0 x10^3uL (1.8-7.7) Lymphocytes # (Auto) 1.9 x10^3/uL (1.0-4.8) Monocytes # (Auto) 0.8 x10^3/uL (0.0-1.1) Eosinophils # (Auto) 0.2 x10^3/uL (0.0-0.7) Basophils # (Auto) 0.1 x10^3/uL (0.0-0.2) Sodium Level 142 mmol/L (136-145) Potassium Level 3.8 mmol/L (3.5-5.1) Chloride Level 106 mmol/L (98-107) Carbon Dioxide Level 27 mmol/L (21-32) Anion Gap 9 (6-14) Blood Urea Nitrogen 21 mg/dL (7-20) Creatinine 2.0 mg/dL (0.6-1.0) Estimated GFR (Cockcroft-Gault) 24.6 Glucose Level 98 mg/dL (70-99) Calcium Level 9.3 mg/dL (8.5-10.1) Test 05/01/18 07:35 Glucose (Fingerstick) 87 mg/dL (70-99) Results All relevant outside records, renal labs, imaging studies, telemetry/EKG's were reviewed. TIKA SNELL MD May 01, 2018 10:47
[2018-05-01 10:49] VITALS: BP 124/63
[2018-05-01] MEDS: INSULIN LISPRO 300 UNITS/3 ML INSULN.PEN. SQ SCH ×5 (11:30→18:16)
[2018-05-01 14:27] LABS: TOTAL SERUM CREATININE 2.01 mg/dL (0.57-1.00); TOTAL URINE CREATININE 31.4 mg/dL (Not Estab.)
--- NOTE | 2018-05-01 14:36 | PDOC ---
PULMONARY PROGRESS NOTES Subjective PT SOA WITH EXERTION Vitals Vital Signs Date Time Temp Pulse Resp B/P (MAP) Pulse Ox O2 Delivery O2 Flow Rate FiO2 05/01/18 10:49 98.9 88 18 124/63 (83) 97 Room Air 98.9 ROS: No Nausea, No Chest Pain, No Abdominal Pain, No Increase Cough General: Alert, No acute distress Lungs: Crackles (one third bases) Cardiovascular: S1 Abdomen: Soft Neuro Exam: Alert Extremities: No Edema Skin: Warm Labs Laboratory Tests Test 04/29/18 17:09 04/29/18 20:46 04/30/18 04:10 04/30/18 07:50 Glucose (Fingerstick) 118 mg/dL (70-99) 187 mg/dL (70-99) 131 mg/dL (70-99) White Blood Count 9.2 x10^3/uL (4.0-11.0) Red Blood Count 3.58 x10^6/uL (3.50-5.40) Hemoglobin 10.2 g/dL (12.0-15.5) Hematocrit 30.5 % (36.0-47.0) Mean Corpuscular Volume 85 fL (79-100) Mean Corpuscular Hemoglobin 28 pg (25-35) Mean Corpuscular Hemoglobin Concent 33 g/dL (31-37) Red Cell Distribution Width 15.1 % (11.5-14.5) Platelet Count 212 x10^3/uL (140-400) Neutrophils (%) (Auto) 74 % (31-73) Lymphocytes (%) (Auto) 18 % (24-48) Monocytes (%) (Auto) 6 % (0-9) Eosinophils (%) (Auto) 1 % (0-3) Basophils (%) (Auto) 0 % (0-3) Neutrophils # (Auto) 6.8 x10^3uL (1.8-7.7) Lymphocytes # (Auto) 1.7 x10^3/uL (1.0-4.8) Monocytes # (Auto) 0.6 x10^3/uL (0.0-1.1) Eosinophils # (Auto) 0.1 x10^3/uL (0.0-0.7) Basophils # (Auto) 0.0 x10^3/uL (0.0-0.2) Sodium Level 141 mmol/L (136-145) Potassium Level 4.1 mmol/L (3.5-5.1) Chloride Level 107 mmol/L (98-107) Carbon Dioxide Level 25 mmol/L (21-32) Anion Gap 9 (6-14) Blood Urea Nitrogen 20 mg/dL (7-20) Creatinine 1.8 mg/dL (0.6-1.0) Estimated GFR (Cockcroft-Gault) 27.8 Glucose Level 248 mg/dL (70-99) Calcium Level 8.5 mg/dL (8.5-10.1) Test 04/30/18 11:51 04/30/18 17:23 04/30/18 20:41 05/01/18 05:40 Glucose (Fingerstick) 205 mg/dL (70-99) 181 mg/dL (70-99) 206 mg/dL (70-99) White Blood Count 9.9 x10^3/uL (4.0-11.0) Red Blood Count 4.16 x10^6/uL (3.50-5.40) Hemoglobin 11.5 g/dL (12.0-15.5) Hematocrit 35.5 % (36.0-47.0) Mean Corpuscular Volume 85 fL (79-100) Mean Corpuscular Hemoglobin 28 pg (25-35) Mean Corpuscular Hemoglobin Concent 33 g/dL (31-37) Red Cell Distribution Width 15.1 % (11.5-14.5) Platelet Count 257 x10^3/uL (140-400) Neutrophils (%) (Auto) 70 % (31-73) Lymphocytes (%) (Auto) 19 % (24-48) Monocytes (%) (Auto) 8 % (0-9) Eosinophils (%) (Auto) 2 % (0-3) Basophils (%) (Auto) 1 % (0-3) Neutrophils # (Auto) 7.0 x10^3uL (1.8-7.7) Lymphocytes # (Auto) 1.9 x10^3/uL (1.0-4.8) Monocytes # (Auto) 0.8 x10^3/uL (0.0-1.1) Eosinophils # (Auto) 0.2 x10^3/uL (0.0-0.7) Basophils # (Auto) 0.1 x10^3/uL (0.0-0.2) Sodium Level 142 mmol/L (136-145) Potassium Level 3.8 mmol/L (3.5-5.1) Chloride Level 106 mmol/L (98-107) Carbon Dioxide Level 27 mmol/L (21-32) Anion Gap 9 (6-14) Blood Urea Nitrogen 21 mg/dL (7-20) Creatinine 2.0 mg/dL (0.6-1.0) Estimated GFR (Cockcroft-Gault) 24.6 Glucose Level 98 mg/dL (70-99) Calcium Level 9.3 mg/dL (8.5-10.1) Test 05/01/18 07:35 05/01/18 11:39 Glucose (Fingerstick) 87 mg/dL (70-99) 302 mg/dL (70-99) Laboratory Tests Test 04/30/18 17:23 04/30/18 20:41 05/01/18 05:40 05/01/18 07:35 Glucose (Fingerstick) 181 mg/dL (70-99) 206 mg/dL (70-99) 87 mg/dL (70-99) White Blood Count 9.9 x10^3/uL (4.0-11.0) Red Blood Count 4.16 x10^6/uL (3.50-5.40) Hemoglobin 11.5 g/dL (12.0-15.5) Hematocrit 35.5 % (36.0-47.0) Mean Corpuscular Volume 85 fL (79-100) Mean Corpuscular Hemoglobin 28 pg (25-35) Mean Corpuscular Hemoglobin Concent 33 g/dL (31-37) Red Cell Distribution Width 15.1 % (11.5-14.5) Platelet Count 257 x10^3/uL (140-400) Neutrophils (%) (Auto) 70 % (31-73) Lymphocytes (%) (Auto) 19 % (24-48) Monocytes (%) (Auto) 8 % (0-9) Eosinophils (%) (Auto) 2 % (0-3) Basophils (%) (Auto) 1 % (0-3) Neutrophils # (Auto) 7.0 x10^3uL (1.8-7.7) Lymphocytes # (Auto) 1.9 x10^3/uL (1.0-4.8) Monocytes # (Auto) 0.8 x10^3/uL (0.0-1.1) Eosinophils # (Auto) 0.2 x10^3/uL (0.0-0.7) Basophils # (Auto) 0.1 x10^3/uL (0.0-0.2) Sodium Level 142 mmol/L (136-145) Potassium Level 3.8 mmol/L (3.5-5.1) Chloride Level 106 mmol/L (98-107) Carbon Dioxide Level 27 mmol/L (21-32) Anion Gap 9 (6-14) Blood Urea Nitrogen 21 mg/dL (7-20) Creatinine 2.0 mg/dL (0.6-1.0) Estimated GFR (Cockcroft-Gault) 24.6 Glucose Level 98 mg/dL (70-99) Calcium Level 9.3 mg/dL (8.5-10.1) Test 05/01/18 11:39 Glucose (Fingerstick) 302 mg/dL (70-99) Medications Active Scripts Medications Dose Route/Sig Max Daily Dose Days Date Category Zemplar (Paricalcitol) 1 Mcg Capsule 1 Mcg PO DAILY 04/25/18 Reported Lantus Solostar (Insulin Glargine,Hum.rec.anlog) 100 Unit/1 Ml Insuln.pen 20 Unit SQ QHS 04/25/18 Reported Carvedilol 6.25 Mg Tablet 6.25 Mg PO BIDWMEALS 04/25/18 Reported Cetirizine Hcl 10 Mg Tablet 10 Mg PO DAILY 04/25/18 Reported Amlodipine Besylate 5 Mg Tablet 5 Mg PO DAILY 04/25/18 Reported Tramadol Hcl 50 Mg Tablet 50 Mg PO Q4HRS PRN 04/25/18 Reported Glimepiride 1 Mg Tablet 1 Mg PO DAILY 04/25/18 Reported Januvia (Sitagliptin Phosphate) 50 Mg Tablet 50 Mg PO DAILY 04/25/18 Reported Crestor (Rosuvastatin Calcium) 20 Mg Tablet 20 Mg PO HS 04/25/18 Reported Comments HRCT CHEST 1. Minimal bibasilar prominent interstitial lung markings could be scarring or fibrosis. No evidence of honeycombing or traction bronchiectasis. 2. Stable pulmonary nodules. 3. Hepatic steatosis. Electronically signed by: Mansoor Marinelli MD (04/27/2018 12:29 PM) [facility] Impression . 1. Substernal chest pain WORK UP PER CARD SEE CATH REPORT 2. Persistent crackles ON EXAM SUSPECT PULMONARY EDEMA POSSIBLE EARLY FIBROSIS. CT OF CHEST NO EVIDENCE OF FIBROSIS 3. No significant history of tobacco use. No history of asthma. 4. CP with exertion/ No pulmonary HTN on echo. suspect unstable angina. CATH 04/29 Conclusion 1. Elevated left ventricualr filling pressures consistent with mild acute on chronic decompensated HF. LVEDP 18 mm Hg 2. Two vessel CAD 3. Negative iFR of the LAD at 0.90 4. Successful PCI of the Lcx with a Resolute 2.5/15 mm ROZ. Recommendations ASA 81mg daily indefinitely Ticagrelor 90mg bid x 3 months and then switch to Plavix 75mg daily High dose statin therapy Cardiac rehab referral. Conclusion 1. Elevated left ventricualr filling pressures consistent with mild acute on chronic decompensated HF. LVEDP 18 mm Hg 2. Two vessel CAD 3. Negative iFR of the LAD at 0.90 4. Successful PCI of the Lcx with a Resolute 2.5/15 mm ROZ. Recommendations ASA 81mg daily indefinitely Ticagrelor 90mg bid x 3 months and then switch to Plavix 75mg daily High dose statin therapy Cardiac rehab referral. Plan . 6 MIN WALK NO PERIODS OF DESATURATION OK TO D/C FOLLOW UP WITH DR YUSUF OUT PT FOR POSSIBLE AUTOIMMUNE WORK UP PFT OUT PT SERA ARAYA MD May 01, 2018 14:36
[2018-05-01 15:00] VITALS: BP 116/71
[2018-05-01] MEDS: ACETAMINOPHEN 325 MG TABLET. PO PRN (15:51)
[2018-05-01] MEDS ORDERED: CRESTOR40 MG PO (16:07)
--- NOTE | 2018-05-01 16:20 | RAD ---
Bilateral lower extremity venous ultrasound, 05/01/2018: History: Leg swelling and pain Duplex evaluation of the deep veins in the lower extremities was performed including grayscale, color-flow and spectral Doppler analysis. The femoral and popliteal veins demonstrate normal compressibility and normal responses to distal augmentation maneuvers. Color imaging of those vessels shows no evidence of intraluminal clot. The visualized deep veins in both calves are patent. There is a 4.0 x 1.6 x 3.1 cm lobulated cyst in the left popliteal fossa compatible with a Schultz's cyst. IMPRESSION: 1. There is no sonographic evidence of deep vein thrombosis in either lower extremity. 2. Left popliteal cyst. Electronically signed by: Renan Lees MD (05/01/2018 4:17 PM) [facility]
--- NOTE | 2018-05-01 16:25 | RAD ---
Bilateral lower extremity arterial ultrasound, 05/01/2018: HISTORY: Foot swelling and pain Duplex evaluation of the major arteries in both lower extremities was performed including grayscale, color-flow and spectral Doppler analysis. There are mild to moderate scattered atherosclerotic plaques, which are worst in both lower legs. The left common femoral Doppler waveform is triphasic. The left superficial femoral and popliteal Doppler waveforms are biphasic. No significant focal velocity acceleration is seen in those arteries to suggest high-grade stenosis. Patent anterior tibial, posterior tibial and peroneal arteries are present in the left lower leg demonstrating biphasic Doppler waveforms. The left dorsalis pedis artery is also patent demonstrating a similar good amplitude biphasic Doppler waveform. On the right, the common femoral, superficial femoral and popliteal Doppler waveforms are all biphasic. No significant focal velocity elevation is seen to suggest high-grade stenosis. Patent anterior tibial, posterior tibial and peroneal arteries are present in the right lower leg demonstrating biphasic Doppler waveforms. The right dorsalis pedis artery is patent demonstrating a similar biphasic Doppler waveform. IMPRESSION: Mild to moderate scattered atherosclerotic plaquing, greatest in both lower legs, with no duplex evidence of high-grade stenotic or occlusive arterial disease in either lower extremity. Electronically signed by: Renan Lees MD (05/01/2018 4:22 PM) [facility]
--- NOTE | 2018-05-01 16:28 | PDOC3 ---
Discharge Summary [facility] Date of Admission: Apr 25, 2018 Discharge Date: May 01, 2018 Admitting Diagnosis Chest pain, NSTEMI, poST cath PCI Lcx 04/29 Uncontrolled DM2 SEJAL , vasomotor CKD3 H/o Hyperlipidemia H/o HTN stable grade 1 diastolic CHF EF 55% Final Diagnosis CONSULTS renal card Brief Hospital Course Ms. Garcia is a 72 old F, dm2, ckd, comes for chest pain, was found high Trop, t wave change, and then got cath, 1 stent at Lcx. Cr was found high at 2.2, better to 1.8. 24h urine protein collected. pt feels good now, no chest pain, or sob. c/o bl feet swelling and pain while still and worse if walk. US neg dvt, mild to moderate some PAD without significant stenosis or occlusion. got one tie lasix 40mg ivx1. no need cont lasix when dc as per card. dc home with asa, brilinta, then switch to plavix after 3ms as per card. fu with renal for CKD. lantus increased to 25u qhs. dc time 35min. General: Oriented X3, Cooperative, mild distress Heart: Regular rate (SR), Normal S1, Normal S2, Other (2/6 systolic murmur to LLS border) Lungs: no wheezing or crackles. Abdomen: Soft, No tenderness Extremities: No cyanosis, Other (trace leg edema, bl feet 2+ edema, + weak pulse) Skin: No breakdown, No significant lesion Patient History: Patient reports no known family medical history. Disposition home CONDITION AT DISCHARGE: Improved Scheduled Amlodipine Besylate (Amlodipine Besylate), 5 MG PO DAILY, (Reported) Aspirin (Aspirin Ec), 81 MG PO DAILYWBKFT Carvedilol (Carvedilol), 6.25 MG PO BIDWMEALS, (Reported) Cetirizine Hcl (Cetirizine Hcl), 10 MG PO DAILY, (Reported) Glimepiride (Glimepiride), 1 MG PO DAILY, (Reported) Insulin Glargine,Hum.rec.anlog (Lantus Solostar), 25 UNITS SQ QHS Paricalcitol (Zemplar), 1 MCG PO DAILY, (Reported) Rosuvastatin Calcium (Crestor), 40 MG PO HS, (Reported) Sitagliptin Phosphate (Januvia), 50 MG PO DAILY, (Reported) Ticagrelor (Brilinta), 90 MG PO BID Scheduled PRN Tramadol Hcl (Tramadol Hcl), 50 MG PO Q4HRS PRN for PAIN, (Reported) Discontinued Medications Insulin Glargine,Hum.rec.anlog (Lantus Solostar), 20 UNIT SQ QHS, (Reported) Rosuvastatin Calcium (Crestor), 20 MG PO HS, (Reported) JESSICA RUIZ MD May 01, 2018 16:28
== END 2018-05-01 18:30 | disposition home or self-care (01) | DRG 246 ==
LOC: ER 08:34 → 2 NORTH 09:57
PROVIDERS: ADMIT Family Medicine; ATTEND Family Medicine
PROC: 027034Z Dilation of Coronary Artery, One Artery with Drug-eluting Intraluminal Device, Percutaneous Approach (ICD-10-PCS; principal; 2018-04-29)
PROC: 4A023N7 Measurement of Cardiac Sampling and Pressure, Left Heart, Percutaneous Approach (ICD-10-PCS; 2018-04-29)
PROC: B2111ZZ Fluoroscopy of Multiple Coronary Arteries using Low Osmolar Contrast (ICD-10-PCS; 2018-04-29)
DX: I21.4 Non-ST elevation (NSTEMI) myocardial infarction (principal); N17.0 Acute kidney failure with tubular necrosis; I50.33 Acute on chronic diastolic (congestive) heart failure; I13.0 Hypertensive heart and chronic kidney disease with heart failure and stage 1 through stage 4 chronic kidney disease, or unspecified chronic kidney disease; N25.81 Secondary hyperparathyroidism of renal origin; N18.4 Chronic kidney disease, stage 4 (severe); I25.110 Atherosclerotic heart disease of native coronary artery with unstable angina pectoris; E78.00 Pure hypercholesterolemia, unspecified; E11.65 Type 2 diabetes mellitus with hyperglycemia; E11.22 Type 2 diabetes mellitus with diabetic chronic kidney disease; E11.40 Type 2 diabetes mellitus with diabetic neuropathy, unspecified; E78.5 Hyperlipidemia, unspecified; E86.0 Dehydration; M17.10 Unilateral primary osteoarthritis, unspecified knee; K76.0 Fatty (change of) liver, not elsewhere classified; D64.9 Anemia, unspecified; Z83.3 Family history of diabetes mellitus; Z79.84 Long term (current) use of oral hypoglycemic drugs; Z79.899 Other long term (current) drug therapy; Z98.49 Cataract extraction status, unspecified eye
CPT/HCPCS: 36415; 71045; 71250; 80048; 80053; 80061; 80307; 81001; 82575; 82962; 83036; 83735; 83880; 84156; 84443; 84484; 85025; 85347; 85520; 85610; 87086; 92928; 93005; 93306; 93458; 93571; 93925; 93970; 94618; 96374; 99152; 99153; C1725; C1769; C1771; C1874; C1887; C1892; G0269; J1644; J1650; J1815; J1940; J2250; J2270; J2405; J3010; J3490; J7030; 99285-25; G0479; J3246

== ENCOUNTER → 2018-06-13 | Outpatient (CLI) | payer MEDICARE, OTHER ==
[~2018-06-13] MED LIST changes: +AMLO5TAB7 PO; +ASPI-612 PO; +ATOR40TA59 PO; +CARV6.2511 PO; +CETI10TA16 PO; +CRESTOR20 MG PO; +CRESTOR40 MG PO; +GLIM1TAB2 PO; +INSU100I13 SQ; +PARI1CAP PO; +SITA50TA PO; +TICA90TA PO; +TRAM50TA PO
--- NOTE | 2018-06-13 11:32 | KCIC ---
RENAL COMPLETE BILATERAL History: Stage IV chronic kidney disease Comparison: None. Findings: Multiple sonographic images of the kidneys and urinary bladder are submitted. Right kidney measured 7.4 x 3.5 x 3.4 cm. Left kidney measured 9.9 x 4 x 4.5 cm. There is no hydronephrosis of either kidney. There is relative thinning of the cortex of the bilateral kidneys. Right renal cortical echogenicity is similar to adjacent liver. Urinary bladder morphology is within normal limits. Impression: 1. There is no hydronephrosis of either kidney. There is thinning of the cortex of the kidneys. There is similar echogenicity of the right renal parenchyma compared with the liver which may be seen with medical renal disease. Electronically signed by: Pj Gary MD (06/13/2018 11:28 AM) [id number]
== END | disposition home or self-care (01) ==
LOC: KCIC US 10:38
PROVIDERS: ATTEND Nurse Practitioner Adult Health
DX: E11.22 Type 2 diabetes mellitus with diabetic chronic kidney disease (principal); I12.9 Hypertensive chronic kidney disease with stage 1 through stage 4 chronic kidney disease, or unspecified chronic kidney disease; N18.4 Chronic kidney disease, stage 4 (severe); Z87.891 Personal history of nicotine dependence
CPT/HCPCS: 76770

== ENCOUNTER → 2019-02-05 | Outpatient (CLI) | payer MEDICARE, OTHER ==
[~2019-02-05] MED LIST changes: +AMLO5TAB10 PO; -AMLO5TAB7 PO; +GABA-585 PO
[2019-02-05] MEDS: REGADENOSON 0.4 MG/5 ML DISP.SYRIN. IV ONE (10:36)
--- NOTE | 2019-02-05 14:06 | CARD ---
MR#: [id number] Date of Study: 02/05/2019 Ordering Physician: JEREMY GREENE, Referring Physician: JEREMY GREENE, Tech: Audrey Patel [facility] APPROVED REPORT EXAM: Two-dimensional and M-mode echocardiogram with Doppler and color Doppler. Other Information Quality : AverageHR: 79bpm Rhythm : NSR INDICATION CAD 2D DIMENSIONS RVDd2.5 (2.9-3.5cm)Left Atrium(2D)3.0 (1.6-4.0cm) IVSd1.0 (0.7-1.1cm)Aortic Root(2D)2.9 (2.0-3.7cm) LVDd3.5 (3.9-5.9cm)LVOT Diameter1.9 (1.8-2.4cm) PWd0.9 (0.7-1.1cm)LVDs1.8 (2.5-4.0cm) FS (%) 49.3 %SV42.7 ml LVEF(%)81.6 (>50%) M-Mode DIMENSIONS Left Atrium(MM)3.12 (2.5-4.0cm)Aortic Root2.67 (2.2-3.7cm) Aortic Valve AoV Peak Hero.116.3cm/sAoV VTI23.5cm AO Peak GR.5.4mmHgLVOT Peak Hero.79.3cm/s AO Mean GR.3mmHgAVA (VMAX)1.91cm2 TIM (VTI)2.00cm2 Mitral Valve MV E Zjwsolus93.0cm/sMV DECEL [id number] MV A Oocfabzs37.8cm/sE/A Ratio0.7 Pulmonary Valve PV Peak Erqmedvy082.5cm/s LEFT VENTRICLE The left ventricle is normal size. There is normal left ventricular wall thickness. The left ventricu lar systolic function is normal. The Ejection Fraction is 65-70%. There is normal LV segmental wall m otion. Transmitral Doppler flow pattern is Grade I-abnormal relaxation pattern. RIGHT VENTRICLE The right ventricle is normal size. There is normal right ventricular wall thickness. The right ventr icular systolic function is normal. ATRIA The left atrium size is normal. The right atrium size is normal. The interatrial septum is intact wit h no evidence for an atrial septal defect or patent foramen ovale as noted on 2-D or Doppler imaging. AORTIC VALVE The aortic valve is thickened but opens well. The aortic valve is trileaflet. Doppler and Color Flow revealed no significant aortic regurgitation. There is no significant aortic valvular stenosis. There is no aortic valvular vegetation. MITRAL VALVE The mitral valve is normal in structure and function. There is no evidence of mitral valve prolapse. There is no mitral valve stenosis. Doppler and Color Flow revealed no mitral valve regurgitation note d. TRICUSPID VALVE The tricuspid valve is normal in structure and function. Doppler and Color Flow revealed no tricuspid valve regurgitation noted. There is no tricuspid valve prolapse or vegetation. There is no tricuspid valve stenosis. PULMONIC VALVE The pulmonic valve is not well visualized. GREAT VESSELS The aortic root is normal in size. The ascending aorta is normal in size. The IVC is normal in size a nd collapses >50% with inspiration. PERICARDIAL EFFUSION There is no evidence of significant pericardial effusion. Critical Notification Critical Value: No <Conclusion> The left ventricular systolic function is normal. The Ejection Fraction is 65-70%. There is normal LV segmental wall motion. Transmitral Doppler flow pattern is Grade I-abnormal relaxation pattern. There is no evidence of significant pericardial effusion. Signed by : Rolo Causey, Electronically Approved : 02/05/2019 14:06:34
--- NOTE | 2019-02-07 12:40 | RAD ---
MR#: [id number] Date of Study: 02/05/2019 Ordering Physician: JEREMY GREENE, Referring Physician: KSENIA GIRALDO Tech: YARED Palomo, ARRT (R) (N) APPROVED REPORT Test Type: Pharmacological Stress Nurse/Tech: Annelise Anna R.N. Test Indications: CAD, marlin Cardiac History: IN, stent, htn,DM Medications: See Electronic Medical Record Medical History: See Electronic Medical Record Resting ECG: SR w/ inverted T wave in lead III Resting Heart Rate: 67 bpm Resting Blood Pressure: 126/67mmHg Pretest Chest Pain: No chest pain Nurse/Tech Notes S1S2, lungs CTA Consent: The procedure was explained to the patient in lay terms. Informed consent was witnessed. Iftikhar eout was entered into [employer]. History and Stress Test performed by RT Debora (Kelechi) (N) Pharm. Details Pharmacologic stress testing was performed using 0.4mg per 5ml of regadenoson given intravenously ove r 7-10 seconds. Stress Symptoms SOB POST EXERCISE Reason for Termination: Infusion complete Max HR: 93 bpm Max Blood Pressure: 102/55mmHg Blood Pressure response to exercise: Abnormal blood pressure response during stress. Heart Rate response to exercise: wnl Chest Pain: No. Arrhythmia: No. ST Change: No. INTERPRETATION Stress EKG Conclusion: Baseline EKG showed sinus rhythm. No ischemic changes at peak stress. No arr hythmias. Imaging Protocol IMAGE PROTOCOL: Rest Tc-99m/stress Tc-99m 1 day Rest: Stress: Viability: Radiopharm.Tc99m [id number] Sestamibi Dose10.4mCi 30.9mCi Img Date 02/05/2019 02/05/2019 Inj-Img [id number]. 45min. Rest Admin Site:IV - Left AntecubitalAdministrator:RT Debora (Kelechi)(N) Stress Admin Site: IV - Left AntecubitalAdministrator: RT Debora (Kelechi)(N) STRESS DATA End Diast. Vol.37.0mlLVEDV index BSA23.0ml End Syst. Vol.1.0mlLVESV index BSA1.0ml Myocardial Mass82.0gEject. Rsckbpvy93.0% Stress Scores Regional WT0.00Summed WT0.00 Regional WM0.00Summed WM1.00 Study quality was good. Left Ventricular size was Normal at Rest and Stress. Lung uptake was . Left Ventricular ejection fraction is 88%. The rest and stress images show normal perfusion, normal contraction and thickening. LV Perf. Quant 17 Seg. SSS1.00 17 Seg. SRS4.00 17 Seg. SDS0.00 Stress Defect Extent (% LAD)0.00Rest Defect Extent (% LAD)0.00Rev. Defect Extent (% LAD)0.00 Stress Defect Extent (% LCX) 8.80Rest Defect Extent (% LCX)35.00Rev. Defect Extent (% LCX)0.00 Stress Defect Extent (% RCA)0.00Rest Defect Extent (% RCA)0.00Rev. Defect Extent (% RCA)0.00 Stress Defect Extent (% JASSI)1.50Rest Defect Extent (% JASSI)6.10Rev. Defect Extent (% JASSI)0.00 Conclusion 1. Regadenoson cardioisotope stress test did not show any evidence of ischemia or infarct. 2. Normal left ventricular systolic function with ejection fraction calculated at 88%. 3. Low risk for cardiac events. Signed by : Rolo Causey, Electronically Approved : 02/07/2019 12:39:48
== END | disposition home or self-care (01) ==
LOC: NM 07:36
PROVIDERS: ATTEND Internal Medicine Cardiovascular Disease
DX: I25.10 Atherosclerotic heart disease of native coronary artery without angina pectoris (principal); I25.2 Old myocardial infarction; I10 Essential (primary) hypertension; E11.9 Type 2 diabetes mellitus without complications; Z95.5 Presence of coronary angioplasty implant and graft
CPT/HCPCS: 78452; 93017; 93306; A9500; J2785

== ENCOUNTER → 2019-03-28 | Outpatient (CLI) | payer MEDICARE, OTHER ==
[~2019-03-28] MED LIST changes: -GLIM1TAB2 PO; +GLIM1TAB3 PO; -PARI1CAP PO; +PARI1CAP17 PO
--- NOTE | 2019-03-28 16:58 | KCIC ---
Examination: CT CHEST WO CONTRAST History: Pulmonary fibrosis Comparison/Correlation: 05/20/2015 CT chest abdomen pelvis with contrast, 04/27/2018 CT chest high resolution Findings: Axial images of the chest were obtained without contrast and sagittal and coronal reformatted images of the chest were obtained. Coronary arterial calcification incidentally is noted. No pericardial or pleural effusion. No enlarged thoracic lymph nodes. Right apical pulmonary nodule measuring less than 0.4 cm diameter is stable. At the right anterior mid thoracic level on axial image 62 of series 3, there is a 0.33 cm diameter noncalcified nodule which is unchanged. Mosaic attenuation of the lung molina is noted. No pneumothorax. Minimal interstitial thickening of the subpleural region is noted at the mid to lower thoracic level. Fatty infiltration of the liver is present. Duodenal diverticulum is present. Bony structures are unremarkable. Impression: Pulmonary nodules are stable. No suspicious new nodule or mass. Mosaic attenuation of the lung molina which may represent small airways diseases present. This is somewhat more evident since 04/27/2018. Minimal subpleural interstitial thickening is unchanged. No findings definite for usual interstitial pneumonia. PQRS Compliance Statement: One or more of the following individualized dose reduction techniques were utilized for this examination: 1. Automated exposure control 2. Adjustment of the mA and/or kV according to patient size 3. Use of iterative reconstruction technique Electronically signed by: Cameron Aguayo MD (03/28/2019 4:54 PM) [facility]
== END | disposition home or self-care (01) ==
LOC: KCIC CT 07:55
PROVIDERS: ATTEND Internal Medicine Critical Care Medicine
DX: K57.10 Diverticulosis of small intestine without perforation or abscess without bleeding (principal); I25.10 Atherosclerotic heart disease of native coronary artery without angina pectoris; R91.8 Other nonspecific abnormal finding of lung field; K76.0 Fatty (change of) liver, not elsewhere classified; J84.89 Other specified interstitial pulmonary diseases; J84.10 Pulmonary fibrosis, unspecified; I12.9 Hypertensive chronic kidney disease with stage 1 through stage 4 chronic kidney disease, or unspecified chronic kidney disease; E11.22 Type 2 diabetes mellitus with diabetic chronic kidney disease; N18.9 Chronic kidney disease, unspecified; I25.2 Old myocardial infarction; Z95.818 Presence of other cardiac implants and grafts; Z79.01 Long term (current) use of anticoagulants
CPT/HCPCS: 71250

== ENCOUNTER → 2020-04-27 | Outpatient (CLI) | payer MEDICARE, OTHER ==
[~2020-04-27] MED LIST changes: +AMLO-186 PO; -AMLO5TAB10 PO; -ASPI-612 PO; +ASPI-886 PO; -GLIM1TAB3 PO; +GLIM1TAB7 PO
--- NOTE | 2020-04-27 11:14 | KCIC ---
CT CHEST WO CONTRAST INDICATION: Lung nodule follow up. / Spl. Instructions: / History: . COMPARISON STUDY: 03/28/2019. TECHNIQUE: Unenhanced axial images were obtained through the lungs and upper abdomen. Coronal and sagittal multiplanar reconstructions were also obtained. PQRS compliance statement: One or more of the following individualized dose reduction techniques were utilized for this examination: 1. Automated exposure control 2. Adjustment of the mA and/or kV according to patient size 3. Use of iterative reconstruction technique FINDINGS: Lungs and Airways: No pulmonary mass or consolidation. Few tiny pulmonary nodules which remain stable. Scattered subpleural reticulation. Normal central airways. Pleura: The pleural spaces are normal. Heart and Mediastinum: The visualized thyroid gland is normal in size and attenuation. No axillary or supraclavicular lymphadenopathy. No mediastinal, hilar or retrocrural lymphadenopathy. Normal cardiac size. Coronary artery atherosclerotic disease. Atherosclerosis of the thoracic aorta. Abdomen: The visualized abdominal organs demonstrate no abnormality. Bones and Soft Tissues: The visualized skeletal structures and soft tissues of the chest wall are within normal limits. IMPRESSION: 1. Few small pulmonary nodules demonstrate continued stability. 2. Scattered subpleural reticulation, which could represent senescent change or mild fibrosis. Electronically signed by: Pj Amaya MD (04/27/2020 11:11 AM) [id number]
== END ==
LOC: KCIC CT 09:51
PROVIDERS: ATTEND Internal Medicine
DX: R91.8 Other nonspecific abnormal finding of lung field (principal); I25.10 Atherosclerotic heart disease of native coronary artery without angina pectoris; I70.0 Atherosclerosis of aorta
CPT/HCPCS: 71250

== ENCOUNTER 2020-08-19 06:55 | Outpatient (CLI) | payer MEDICARE, OTHER ==
[2020-08-19] VITALS (10 sets, daily range): BP systolic 95–137; BP diastolic 49–71
[~2020-08-19] VITALS: Ht 157.5 cm; Wt 65.8 kg
[2020-08-19 09:55] LABS: HEMATOCRIT 42.7 % (36.0-47.0); RED BLOOD COUNT 4.96 x10^6/uL (3.50-5.40); RED CELL DISTRIBUTION WIDTH 13.2 % (11.5-14.5); WHITE BLOOD COUNT 15.8 x10^3/uL (4.0-11.0)
[2020-08-19] MEDS ORDERED: INSU100V6 SQ (09:58)
[2020-08-19] MEDS ORDERED: FERR325T14 PO (09:58)
[2020-08-19] MEDS ORDERED: RANO500T2 PO (09:58)
[2020-08-19] MEDS ORDERED: INSU100V8 SQ (09:58)
[2020-08-19 10:08] LABS: CALCIUM 9.3 mg/dL (8.5-10.1); CREATININE 2.4 mg/dL (0.6-1.0); GFR 19.8; POTASSIUM 4.4 mmol/L (3.5-5.1)
[2020-08-19] MEDS ORDERED: LIDOCAINE 1% Multi-Dose 20 ML VIAL. ONE (10:54)
[2020-08-19] MEDS ORDERED: MIDAZOLAM HCL/PF 2 MG/2 ML VIAL. ONE (10:54)
[2020-08-19] MEDS ORDERED: fentaNYL PF VIAL 100 MCG/2 ML VIAL ONE (10:54)
[2020-08-19] MEDS ORDERED: fentaNYL PF VIAL 100 MCG/2 ML VIAL IV ONE (11:00)
[2020-08-19] MEDS ORDERED: LIDOCAINE 1% Multi-Dose 20 ML VIAL. INJ ONE (11:00)
[2020-08-19] MEDS ORDERED: MIDAZOLAM HCL/PF 2 MG/2 ML VIAL. IV ONE (11:00)
[2020-08-19] MEDS ORDERED: IODIXANOL 320 MG/ML 100 ML VIAL. IART ONE (11:00)
--- NOTE | 2020-08-19 11:09 | PDOC ---
MODERATE SEDATION ASSESSMENT RISKS/ALTERNATIVES Risks/Alternatives Risks and alternatives of this type of sedation and procedure discussed with: RISK/ALTERNATIVES: Patient H & P ON CHART H & P H & P on chart and reviewed for co-morbid conditions and appropriate labs. H&P ON CHART: Yes STATUS PREG STATUS ASSESSED: N/A MEDS/ALLERGIES REVIEWED Meds/Allergies Reviewed Medications and Allergies including time and route of recently administered narcotics and sedatives. MEDS/ALLERGIES REVIEWED: Yes ASA RATING ASA RATING: III AIRWAY ASSESSMENT Airway Assessment Airway patency, oral function limitations, presence of caps, crowns, dentures, partials, and ability to extend neck assessed. AIRWAY ASSESSMENT: Yes MALLAMPATI SCORE MALLAMPATI SCORE: II PRE-SEDATION ASSESSMENT PRE-SEDATION ASSESSMENT: Yes JEREMY GREENE MD Aug 19, 2020 11:09
[2020-08-19] MEDS ORDERED: CONTRAST GIVEN. MC PRN (11:15)
[2020-08-19] MEDS ORDERED: CLOP75TA PO (11:47)
--- NOTE | 2020-08-19 15:20 | NUR ---
Discharge Note: MANNY ROMERO [facility] Discharge instructions and discharge home medications reviewed with Patient and a copy given. All questions have been answered and understanding verbalized. The following instructions and handouts were given: adult moderate sedation and groin site care Discontinued lines and drains: Peripheral IV intact. Patient discharged to Home or Self Care withSelfvia Wheelchair
--- NOTE | 2020-08-19 15:31 | NUR ---
Respiratory therapy and RT student came and did 6 minute walk with patient. No need for home oxygen therapy according to their assessment. See RT notes.
--- NOTE | 2020-08-19 15:51 | CARD ---
MR#: [id number] Date of Study: 08/19/2020 Ordering Physician: JEREMY GREENE, Referring Physician: JEREMY GREENE, Tech: BABITA MCNALLY RTR APPROVED REPORT Technologist: BABITA MCNALLY RTR Nurse: Jannette Machuca RN Procedure(s) performed: MODERATE SEDATION TIME: 40 MINUTES FLUORO TIME: 3.3 MIN DOSE: 22.8 GYCM2 CONTRAST: 14CC VISI LHC, Coronary angiography HISTORY The patient is a 74 year-old female with a history of : diabetes mellitus with treatment, coronary ar zohreh disease, hypertension, dyslipidemia. INDICATION The indication(s) include : unstable angina . [facility] Clinical Frailty Scale [facility] Clinical Frailty Scale: Moderately Frail Heart Failure Heart Failure: Yes If Yes, Newly Diagnosed: No If Yes, HF Type: Diastolic If Yes, NYHA Class: Class II PROCEDURE NARRATIVE Clinical information: 74-year-old woman with prior history of diffuse coronary disease and history of severe diabetes prese nted to the clinic with worsening exertional dyspnea and chest pain despite being treated with ranola zine, beta-glen therapy and having a well-controlled blood pressure and heart rate. After discuss ion of risks and benefits of cardiac catheterization the patient wished to proceed. Procedure details: Previous attempts at radial catheterization have been unsuccessful due to the patient's small caliber vessels and therefore femoral access was obtained. The right groin was prepped and draped in usual sterile fashion. Under 1% lidocaine local anesthesia a 4 [place] introducer sheath was placed in the right common femoral artery. Next, diagnostic angiography was performed with a 4 [place] JL4, JR4 and pigtail catheters. At case completion the sheath was removed and hemostasis was achieved with manua l compression. There were no acute complications noted. Findings: Aorta 110/70 LVEDP 10 mmHg No gradient on LV to aortic pullback. Coronary angiography: Left main is a large-caliber vessel with mild luminal irregularities LAD is a moderate caliber vessel with mild diffuse up to 50% stenosis involving the proximal and mid segment. Left circumflex is a moderate caliber vessel with a proximal 50% stenosis OM1 is a moderate caliber vessel with a patent proximal stent. RCA is a moderate caliber vessel with mild luminal irregularities. Conclusion 1. Normal left-sided filling pressure 2. Two-vessel coronary artery disease with patent stent in the left circumflex. Recommendations 1. Continue aggressive medical therapy. Unfortunately, it has been difficult to ascertain the patie nt's accurate medication list but it appears that she is on antianginal therapy. Given normal LV va ling pressures, lack of any significant ischemia in the past on stress testing and lack of any clear significant obstructive lesion will continue medical therapy. 2. Outpatient echocardiogram 3. Total of 14 cc of contrast used today on angiography, plan for repeat BMP in 1 to 2 weeks. Signed by : Jeremy Greene, Electronically Approved : 08/19/2020 15:51:18
== END 2020-08-19 15:45 | disposition home or self-care (01) ==
LOC: LAB 06:55 → CCL 15:45
PROVIDERS: ATTEND Internal Medicine Cardiovascular Disease
DX: I25.110 Atherosclerotic heart disease of native coronary artery with unstable angina pectoris (principal); I12.9 Hypertensive chronic kidney disease with stage 1 through stage 4 chronic kidney disease, or unspecified chronic kidney disease; N18.4 Chronic kidney disease, stage 4 (severe); E11.22 Type 2 diabetes mellitus with diabetic chronic kidney disease; E78.00 Pure hypercholesterolemia, unspecified; Z79.82 Long term (current) use of aspirin; Z79.4 Long term (current) use of insulin; Z79.899 Other long term (current) drug therapy; Z98.890 Other specified postprocedural states; Z20.822 Contact with and (suspected) exposure to COVID-19
CPT/HCPCS: 36415; 80048; 85027; 85730; 87426; 93458; 94618; 99152; 99153; C1769; C1892; C9803; J1644; J2250; J3010; J3490; Q9967; U0003

== ENCOUNTER → 2020-09-23 | Outpatient (CLI) | payer MEDICARE, OTHER ==
[2020-08-19 15:01] VITALS: BP 137/67
[~2020-09-23] MED LIST changes: +CLOP75TA PO; +FERR325T14 PO; +INSU100V6 SQ; +INSU100V8 SQ; +RANO500T2 PO
--- NOTE | 2020-09-23 09:14 | KCIC ---
EXAM: Bilateral digital screening mammogram with tomosynthesis. HISTORY: 74-year-old female presents for screening mammography. TECHNIQUE: Full-field digital craniocaudal and mediolateral oblique 2D and 3D tomosynthesis images of both breasts are obtained for evaluation. Computer aided detection was applied. COMPARISON: 11/13/2013 BREAST PARENCHYMAL DENSITY: Level C - Heterogeneously dense. FINDINGS: There is no new suspicious mass, microcalcification or region of architectural distortion. There is stable areas of asymmetry and nodularity within both breasts, allowing for differences in im aging technique. There is a small circumscribed nodular density within the posterior 9:00 position of the right breast which is likely more conspicuous due to differences in technique. The imaging appea renetta favors an axillary tail lymph node. There multiple benign calcifications. IMPRESSION: BI-RADS Category 2: Benign finding(s). RECOMMENDATION: Annual mammography is recommended. If your mammogram demonstrates that you have dense breast tissue, which could hide abnormalities, and if you have other risk factors for breast cancer that have been identified, you might benefit from s upplemental screening tests that may be suggested by your ordering physician. Dense breast tissue, i n and of itself, is a relatively common condition. This information is not provided to cause undue c oncern, but rather to raise your awareness and to promote discussion with your physician regarding th e presence of other risk factors, in addition to dense breast tissue. A report of your mammography re sults will be sent to you and your physician. You should contact your physician if you have any ques tions or concerns regarding this report. Mammography is a sensitive method for finding small breast cancers, but it does not detect them all a nd is not a substitute for careful clinical examination. A negative mammogram does not negate a clin ically suspicious finding and should not result in delay in biopsying a clinically suspicious abnorma lity. PQRS compliance statement - Patient information was entered into a reminder system with a target due date for the next mammogram. "Our facility is accredited by the [employer] Mammography Program." Electronically signed by: Joya Varela MD (09/23/2020 9:11 AM) [id number]
== END ==
LOC: KCIC MAMMO 08:11
PROVIDERS: ATTEND Internal Medicine
DX: Z12.31 Encounter for screening mammogram for malignant neoplasm of breast (principal)
CPT/HCPCS: 77063; 77067

== ENCOUNTER → 2020-11-05 | Outpatient (CLI) | payer MEDICARE, OTHER ==
[2020-08-19 15:01] VITALS: BP 137/67
--- NOTE | 2020-11-05 15:12 | CARD ---
MR#: [id number] Date of Study: 11/05/2020 Ordering Physician: POOL GREENE, Referring Physician: POOL GREENE, Tech: Marianne Amos [facility] APPROVED REPORT EXAM: Two-dimensional and M-mode echocardiogram with Doppler and color Doppler. Other Information Quality : FairHR: 77bpm Rhythm : NSR INDICATION Dyspnea RISK FACTORS Hypertension Obesity Hyperlipidemia Diabetes 2D DIMENSIONS Left Atrium(2D)3.3 (1.6-4.0cm)IVSd1.0 (0.7-1.1cm) Aortic Root(2D)2.8 (2.0-3.7cm)LVDd3.7 (3.9-5.9cm) LVOT Diameter1.7 (1.8-2.4cm)PWd1.1 (0.7-1.1cm) LVDs1.9 (2.5-4.0cm)FS (%) 48.8 % SV47.7 mlLVEF(%)80.9 (>50%) Aortic Valve AoV Peak Hero.92.1cm/sAoV VTI24.4cm AO Peak GR.3.4mmHgLVOT Peak Hero.81.1cm/s AO Mean GR.2mmHgAVA (VMAX)1.98cm2 Mitral Valve MV E Gxjiijsm67.5cm/sMV DECEL [id number] MV A Jkevwzzy90.7cm/sE/A Ratio0.6 LEFT VENTRICLE The left ventricle is normal size. There is borderline to mild concentric left ventricular hypertroph y. The left ventricular systolic function is normal and the ejection fraction is within normal range. Estimated ejection fraction 60-65%. There is normal LV segmental wall motion. Transmitral Doppler fl ow pattern is Grade I-abnormal relaxation pattern. RIGHT VENTRICLE The right ventricle is normal size. There is normal right ventricular wall thickness. The right ventr icular systolic function is normal. ATRIA The left atrium size is normal. The right atrium size is normal. The interatrial septum is intact wit h no evidence for an atrial septal defect or patent foramen ovale as noted on 2-D or Doppler imaging. AORTIC VALVE The aortic valve is calcified but opens well. Doppler and Color Flow revealed no significant aortic r egurgitation. There is no significant aortic valvular stenosis. MITRAL VALVE The mitral valve is normal in structure and function. There is no evidence of mitral valve prolapse. There is no mitral valve stenosis. Doppler and Color Flow revealed no mitral valve regurgitation note d. TRICUSPID VALVE The tricuspid valve is normal in structure and function. Doppler and Color Flow revealed no tricuspid valve regurgitation noted. There is no tricuspid valve prolapse or vegetation. There is no tricuspid valve stenosis. PULMONIC VALVE Doppler and Color Flow revealed mild pulmonic valvular regurgitation. There is no pulmonic valvular s tenosis. GREAT VESSELS The aortic root is normal in size. The ascending aorta is normal in size. The IVC was not visualized. PERICARDIAL EFFUSION There is no pericardial effusion. Critical Notification Critical Value: No <Conclusion> The left ventricular systolic function is normal and the ejection fraction is within normal range. E stimated ejection fraction 60-65%. There is normal LV segmental wall motion. Signed by : Pool Greene, Electronically Approved : 11/05/2020 15:12:22
== END ==
LOC: ECHO 11:09
PROVIDERS: ATTEND Internal Medicine Cardiovascular Disease
DX: I08.8 Other rheumatic multiple valve diseases (principal); I25.10 Atherosclerotic heart disease of native coronary artery without angina pectoris
CPT/HCPCS: 93306